=== PATIENT | male | born 1955 | race Caucasian/White ===

== ENCOUNTER 2022-01-17 12:49 | Outpatient (REF) | payer OTHER, SELFPAY ==
[2022-01-17 14:10] LABS: Cholesterol 242 mg/dL; Glucose Fasting 101 mg/dL (60-99); HDL Cholesterol 55 mg/dL; LDL Cholesterol Calculated 166 mg/dl; Triglycerides 108 mg/dL
== END 2022-01-17 12:50 | disposition home or self-care (01) ==
LOC: HO.HMGCLDS 12:49
PROVIDERS: PCP Physician Assistant; Visit Provider Physician Assistant
DX: E78.2 Mixed hyperlipidemia (principal)
CPT/HCPCS: 36415; 80061; 82947

== ENCOUNTER 2022-07-10 09:13 | Outpatient (REF) | payer OTHER, SELFPAY ==
[2022-07-10 12:10] LABS: Cholesterol 193 mg/dL; HDL Cholesterol 63 mg/dL; LDL Cholesterol Calculated 117 mg/dl; Triglycerides 68 mg/dL
== END 2022-07-10 09:14 | disposition home or self-care (01) ==
LOC: HO.HMGCLDS 09:13
PROVIDERS: PCP Physician Assistant; Visit Provider Physician Assistant
DX: E78.5 Hyperlipidemia, unspecified (principal)
CPT/HCPCS: 36415; 80061

== ENCOUNTER 2023-02-12 10:01 | Outpatient (REF) | payer OTHER, SELFPAY ==
[2023-02-12 12:45] LABS: Anion Gap 11 (12-20); Blood Urea Nitrogen 23 mg/dL (9-16); Calcium 9.4 mg/dL (8.4-10.2); Carbon Dioxide 28 mmol/L (22-29); Chloride 106 mmol/L (96-108); Cholesterol 235 mg/dL; Estimated Glomerular Filt Rate > 60; Glucose Random 101 mg/dL (60-115); HDL Cholesterol 56 mg/dL; LDL Cholesterol Calculated 162 mg/dl; Potassium 3.6 mmol/L (3.3-5.1); Sodium 141 mmol/L (135-145); Triglycerides 89 mg/dL
[2023-02-12 13:00] LABS: Prostate Specific Antigen 1.57 ng/mL (<0.05-4.0)
== END 2023-02-12 10:02 | disposition home or self-care (01) ==
LOC: HO.HMGCLDS 10:01
PROVIDERS: PCP Physician Assistant; Visit Provider Physician Assistant
DX: Z00.00 Encounter for general adult medical examination without abnormal findings (principal); Z12.5 Encounter for screening for malignant neoplasm of prostate; Z13.6 Encounter for screening for cardiovascular disorders
CPT/HCPCS: 36415; 80048; 80061; 84153

== ENCOUNTER 2023-07-12 11:00 | Outpatient (RCR) | payer OTHER, SELFPAY | END 2023-12-03 13:44 | disposition home or self-care (01) | LOC: HO.PTCHIC 11:00 | PROVIDERS: PCP Physician Assistant; Visit Provider Physician Assistant | DX: M25.551 Pain in right hip (principal) | CPT/HCPCS: 97110; 97162 ==

== ENCOUNTER 2024-03-11 10:58 | Outpatient (REF) | payer OTHER, SELFPAY ==
[2024-03-11 17:01] LABS: Blood Urea Nitrogen 24 mg/dL (9-16); Estimated Glomerular Filt Rate > 60
== END 2024-03-11 10:59 | disposition home or self-care (01) ==
LOC: HO.HMGCLDS 10:58
PROVIDERS: Visit Provider Otolaryngology
DX: R07.0 Pain in throat (principal); J38.7 Other diseases of larynx
CPT/HCPCS: 36415; 82565; 84520

== ENCOUNTER 2025-06-04 08:33 | Outpatient (REF) | payer OTHER, SELFPAY ==
--- OUTSIDE RECORDS SUMMARY | 2023-12-17 09:00 | XMS_ITS ---
Author Organization [facility] Address [address] [place] [address] Care Team Providers Care Neurosurgery Spine Physician Name Role Phone Ruth Peguero Unavailable [phone] REASON FOR VISIT EKG, labs, right hip replacement surgery by Dr Wili Mendoza 12/25/22 Encounters Encounter Location Date Provider Diagnosis [facility] [address] [address] 12/17/2023 Ruth Peguero Plan Of Treatment No Information Progress Notes * Topher ALLANDOB: (70 yo M)Acc No.[id number]:12/17/2023 Progress Note Patient: Topher NELSON Provider: Citlalli Peguero PA-C :1955 A ge:68 Y S ex:Male Date:12/17/2023 Address:[address] [place], [place] [id number] Subjective: * Chief Complaints: * 1 . EKG, labs, right hip replacement surgery by Dr Wili Mendoza 12/25/22. * Medical History: Objective: * Vitals: Assessment: Plan: * Treatment: * Images: Billing Information: * Visit Code: * Procedure Codes: * Electronic signature of Ruth Peguero PA-C on 06/04/2025 at 08:35 AM EDT Sign off status: Pending * Provider: Citlalli Peguero PA-C Date: 12/17/2023 Generated for Jac morgan/Macario/Severoitting on: 0 06/04/2025 08:35 AM EDT
--- OUTSIDE RECORDS SUMMARY | 2025-06-04 08:35 | XMS_ITS ---
Author Organization [facility] Address [address] [place] [address] Care Team Providers Care Briefcase Sewer Name Role Phone Yanet Keane PA-C Primary Care Provider [phone] Balbir Oneal MD Unavailable [facility] Hermelinda Franco RN Unavailable [phone] Mariann Horne PA-C Unavailable [phone] Aravind Abel MD Unavailable Migel Davis MD Unavailable Active Problems Problem Noted Date Diagnosed Date Oropharyngeal cancer 04/28/2025 Decreased oral intake 06/16/2024 Aortic aneurysm 05/06/2024 Head and neck cancer 04/22/2024 Over weight 04/07/2024 Assessment & Plan (04/07/2024 10:47 AM EDT): Diet, exercise and lifestyle modifications. 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 No recurrence since. Continue follow up as planned. Current Treatment and Therapy Plans CISplatin (40 mg/m??) x 5-7 Weeks + Concurrent Radiation* Plan Start Date: 05/03/2024 Plan Provider:Karthik Adams MD Linked Problems Head and neck cancer (HCC) Treatment Medications CISplatin (PLATINOL) IVPB in 500 mL NS (< 50 mg/ m2) Other Current Plans Hydration WITHOUT Additives Therapy Plan* Plan Start Date:06/17/2024 Plan Provider:Keri Hammond APRN Linked Problems Decreased oral intake Treatment Medications No medications scheduled. Past Treatment and Therapy Plans INFUSION TREATMENT 1 Plan Name Start Date Discontinue Date Treatment Medications Discontinue Reason Plan Provider Hydration WITHOUT Additives Therapy Plan 06/16/2024 05/27/2025 No medications scheduled. Therapy Complete Balbir Oneal MD Radiation Treatments * Course 1 05/04/2024 - 06/22/2024 Treatment Sites Treatment Period Technique Fraction Dose Fra ctions Total Dose A1-2 L BOT [place] 05/04/2024 - 06/22/2024 VMAT 200 / 200 35 / 35 7,000 / 7,000
--- OUTSIDE RECORDS SUMMARY | 2025-06-04 08:36 | XMS_ITS | Patient Health Record ---
Author Organization [facility] Address [address] [place] [address] Care Team Providers Care Foot Press Operator Name Role Phone Yanet Keane Primary Care Provider Felicia Poe [phone] Reason For Referral No Information Medications Medication SIG (Take, Route, Fr equency, Duration) Notes Start Date End Date Status Soma Active Metrogel Active Lorazepam Active Meloxicam 15 MG 1 tablet Orally Once a day; Duration: 30 Active Problems Problem Type SNOMED Code ICD Code Onset Dates Problem Status W/U Status Risk Notes Problem Bursitis (16755317) Bursitis (727.3) Active confirmed Problem Myositis (38601981) Myositis (729.1) Active confirmed Problem Pain in limb (33466039) Pain in Limb (729.5) Active confirmed Problem Plantar fasciitis (537092892) Plantar Fasciitis (728.71) Active confirmed Problem Calcaneal spur (74837773) Calcaneal spur (726.73) Active confirmed Encounters Encounter Location Date Provider [facility] [address] [place] [address] 10/05/2024 Felicia Garcia Plan Of Treatment Pending Test Test Name Order Date X ray : Foot, left 3V 02/16/2015 Insurance Providers Payer Name Payer Address Payer Phone Subscriber Number Group Number Insured Name Patient Relationship to Insured Coverage Start Date Coverage End Date [employer] [address] [place] [id number] [id number] Topher Allan Self - patient is the insured Medical (General) History Medical History History ICD Code Anxiety Arthritis Back,Hip,and Knee pain Broken bones Chicken pox Joint implants/screws Sciatica Surgical History Surgery Date(Month/Year) left knee replacement right knee replacement
--- OUTSIDE RECORDS SUMMARY | 2025-06-04 08:36 | XMS_ITS ---
Author Name [facility] Organization Unknown Results Test Name/Text Value Interpretation Date Range Source Ferritin SerPl-mCnc 207.0 ug/L Normal 02/17/2025 30 - 400 [facility] TSH SerPl DL<=0.005 mIU/L-aCnc 2.95 mIU/L Normal 02/17/2025 0.27 - 4.2 [facility] Sodium SerPl-sCnc 140.0 mmol/L Normal 02/17/2025 136 - 14 5 H[facility] CO2 SerPl-sCnc 26.0 mmol/L Normal 02/17/2025 22 - 33 HH CCT Creat SerPl-mCnc 1.0 mg/dL Normal 02/17/2025 0.5 - 1.3 HH CCT Glucose SerPl-mCnc 72.0 mg/dL Normal 02/17/2025 65 - 99 [facility] Chloride SerPl-sCnc 104.0 mmol/L Normal 02/17/2025 98 - 1 07 H[facility]CT Calcium SerPl-mCnc 9.2 mg/dL Normal 02/17/2025 8.7 - 10.5 H[facility]CT BUN/Creat SerPl 19.0 Ratio Normal 02/17/2025 10 - 25 HH CCT GFR/BSA.pred SerPlBld [id number] 82.0 Normal 02/17/2025 59 - HHCCT Anion Gap Bld-sCnc 10.0 Normal 02/17/2025 7 - 17 H[facility]CT Potassium SerPl-sCnc 4.0 mmol/L Normal 02/17/2025 3.4 - 5 .3 H[facility]CT BUN SerPl-mCnc 19.0 mg/dL Normal 02/17/2025 8 - [address] Bilirub SerPl-mCnc 0.3 mg/dL Normal 02/17/2025 0.2 - 1 HHCCT ALT SerPl-cCnc 18.0 U/L Normal 02/17/2025 10 - 55 [facility] T ALP SerPl-cCnc 54.0 U/L Normal 02/17/2025 45 - 128 [facility] T Globulin Ser Calc-mCnc 2.5 g/dL Normal 02/17/2025 1.5 - 3.9 HHCCT Prot SerPl-mCnc 6.5 g/dL Normal 02/17/2025 6.3 - 8.[address] AST SerPl-cCnc 19.0 U/L Normal 02/17/2025 10 - 55 [facility] T Albumin/Glob SerPl 1.6 Ratio Normal 02/17/2025 1 - 3 H[facility]CT Albumin SerPl-mCnc 4.0 g/dL Normal 02/17/2025 3.4 - 4.8 HHCCT Bilirub Direct SerPl-mCnc 0.1 mg/dL Normal 02/17/2025 0 - 0.2 HHCCT T4 Free SerPl-mCnc 1.06 ng/dL Normal 02/17/2025 0.8 - 1.9 HHCCT Iron Satn MFr SerPl 35.0 % Normal 02/17/2025 20 - 50 H[facility]CT UIBC SerPl-mCnc 161.0 ug/dL Normal 02/17/2025 112 - 346 H HCCT TIBC SerPl-mCnc 247.0 ug/dL Normal 02/17/2025 100 - 400 H HCCT Iron SerPl-mCnc 86.0 ug/dL Normal 02/17/2025 53 - 167 HH CCT Hgb Retic Qn Auto 33.3 pg Normal 02/17/2025 28 - 35 H HCCT Retics/100 RBC NFr Auto 1.4 % Normal 02/17/2025 0.7 - 2 H[facility]CT Reticulocyte production index 1.3 % Normal 02/17/2025 1 - 2 H[facility]CT Retics num Auto 63.6 Thou/uL Normal 02/17/2025 30 - 100 H[facility]CT Immature Reticulocyte Fraction 10.5 % Normal 02/17/2025 2.3 - 15.9 HHCCT Lymphocytes num Bld Auto 0.87 Thou/uL Below low normal 02/17/2025 1.5 - 4.5 HHCCT Hgb Bld-mCnc 13.7 g/dL Normal 02/17/2025 13 - 17.7 HHCCT Eosinophil/leuk NFr Bld Auto 2.7 % Normal 02/17/2025 HHCCT Neutrophils num Bld Auto 2.63 Thou/uL Normal 02/17/2025 2 - 7.5 HHCCT MCH RBC Qn Auto 29.7 pg Normal 02/17/2025 27 - [address] RDW RBC Auto-Rto 14.3 % Normal 02/17/2025 11.5 - 14.5 H[facility]CT Platelet num Bld Auto 254.0 Thou/uL Normal 02/17/2025 150 - 450 H[facility]CT PMV Bld Auto 11.5 fL Normal 02/17/2025 7.5 - 12.5 HHCCT Neutrophils/leuk NFr Bld Auto 64.8 % Normal 02/17/2025 HHCCT RBC num Bld Auto 4.61 Mil/uL Normal 02/17/2025 4.5 - 6.2 HHCCT Monocytes/leuk NFr Bld Auto 9.4 % Normal 02/17/2025 HHCCT Basophils/leuk NFr Bld Auto 1.5 % Normal 02/17/2025 HHCCT Imm Granulocytes/leuk NFr Bld Auto 0.2 % Normal 02/17/2025 HHCCT Basophils num Bld Auto 0.06 Thou/uL Normal 02/17/2025 0 - 0.2 HHCCT Lymphocytes/leuk NFr Bld Auto 21.4 % Normal 02/17/2025 HHCCT Monocytes num Bld Auto 0.38 Thou/uL Normal 02/17/2025 0.2 - 1.5 HHCCT Hct VFr Bld Auto 41.9 % Normal 02/17/2025 39 - 54 HH CCT MCV RBC Auto 91.0 fL Normal 02/17/2025 80 - 100 H[facility]CT Imm Granulocytes num Bld Auto 0.01 Thou/uL Normal 02/17/2025 0 - 0.1 HHCCT Eosinophil num Bld Auto 0.11 Thou/uL Normal 02/17/2025 0 - 0.7 HHCCT WBC num Bld Auto 4.1 Thou/uL Normal 02/17/2025 4 - 11 HHCCT MCHC RBC Auto-mCnc 32.7 g/dL Normal 02/17/2025 30 - 36 HHCCT POC Glucose 96.0 mg/dL Normal 09/14/2024 65 - 99 H[facility]CT Platelet num Bld Auto 203.0 Thou/uL Normal 06/26/2024 150 - 450 HHCCT Lymphocytes num Bld Auto <1.0 Thou/uL Below low normal 06/26/2024 1.5 - 4.5 HHCCT PMV Bld Auto 7.6 fL Normal 06/26/2024 7.5 - 12.5 HHCCT Neutrophils num Bld Auto 2.4 Thou/uL Normal 06/26/2024 2 - 7.5 HHCCT WBC num Bld Auto 2.9 Thou/uL Below low normal 06/26/2024 4 - 11 HHCCT MCH RBC Qn Auto 29.6 pg Normal 06/26/2024 27 - [address] Mixed Mononuclear, Absolute <1.0 Thou/uL Normal 06/26/2024 0.2 - 1.9 HHCCT Neutrophils/leuk NFr Bld Auto 82.4 % Normal 06/26/2024 HHCCT Mixed Mononuclear 12.5 % Normal 06/26/2024 H [facility]CT MCV RBC Auto 89.0 fL Normal 06/26/2024 80 - 100 HHCCT RBC num Bld Auto 3.95 Mil/uL Below low normal 06/26/2024 4.5 - 6.2 HHCCT Hct VFr Bld Auto 35.1 % Below low normal 06/26/2024 39 - 54 HHCCT RDW RBC Auto-Rto 15.9 % Above high normal 06/26/2024 11.5 - 14.5 HHCCT MCHC RBC Auto-mCnc 33.3 g/dL Normal 06/26/2024 30 - 36 HHCCT Lymphocytes/leuk NFr Bld Auto 5.1 % Normal 06/26/2024 HHCCT Hgb Bld-mCnc 11.7 g/dL Below low normal 06/26/2024 13 - 17.7 HHCCT Magnesium SerPl-mCnc 1.8 mg/dL Normal 06/15/2024 1.6 - 2. 7 HHCCT Albumin/Glob SerPl 1.7 Ratio Normal 06/15/2024 1 - 3 HHCCT Bilirub SerPl-mCnc 0.4 mg/dL Normal 06/15/2024 0.2 - 1 HHCCT Albumin SerPl-mCnc 3.9 g/dL Normal 06/15/2024 3.4 - 4.8 HHCCT Chloride SerPl-sCnc 98.0 mmol/L Normal 06/15/2024 98 - 10 7 HHCCT AST SerPl-cCnc 12.0 U/L Normal 06/15/2024 10 - 55 [facility] T CO2 SerPl-sCnc 26.0 mmol/L Normal 06/15/2024 22 - 33 HH CCT BUN/Creat SerPl 25.0 Ratio Normal 06/15/2024 10 - 25 HH CCT GFR/BSA.pred SerPlBld [id number] 74.0 Normal 06/15/2024 59 - HHCCT Calcium SerPl-mCnc 9.3 mg/dL Normal 06/15/2024 8.7 - 10.5 HHCCT Globulin Ser Calc-mCnc 2.3 g/dL Normal 06/15/2024 1.5 - 3.9 HHCCT Glucose SerPl-mCnc 105.0 mg/dL Above high normal 06/15/2024 65 - 99 HHCCT Prot SerPl-mCnc 6.2 g/dL Below low normal 06/15/2024 6.3 - 8.3 HHCCT Sodium SerPl-sCnc 136.0 mmol/L Normal 06/15/2024 136 - 14 5 HHCCT Creat SerPl-mCnc 1.1 mg/dL Normal 06/15/2024 0.5 - 1.3 HH CCT ALT SerPl-cCnc 15.0 U/L Normal 06/15/2024 10 - 55 HH[facility] T Potassium SerPl-sCnc 3.8 mmol/L Normal 06/15/2024 3.4 - 5 .3 HHCCT ALP SerPl-cCnc 54.0 U/L Normal 06/15/2024 45 - 128 [facility] T BUN SerPl-mCnc 28.0 mg/dL Above high normal 06/15/2024 8 - 2 1 H[facility]CT Anion Gap Bld-sCnc 12.0 Normal 06/15/2024 7 - 17 H[facility]CT Lymphocytes/leuk NFr Bld Auto 15.8 % Normal 06/15/2024 HHCCT Neutrophils num Bld Auto 2.5 Thou/uL Normal 06/15/2024 2 - 7.5 HHCCT RBC num Bld Auto 4.27 Mil/uL Below low normal 06/15/2024 4.5 - 6.2 HHCCT Lymphocytes num Bld Auto <1.0 Thou/uL Below low normal 06/15/2024 1.5 - 4.5 HHCCT MCH RBC Qn Auto 29.0 pg Normal 06/15/2024 27 - [address] MCHC RBC Auto-mCnc 32.5 g/dL Normal 06/15/2024 30 - 36 HHCCT Hgb Bld-mCnc 12.4 g/dL Below low normal 06/15/2024 13 - 17.7 HHCCT RDW RBC Auto-Rto 14.3 % Normal 06/15/2024 11.5 - 14.5 HHCCT Mixed Mononuclear 5.1 % Normal 06/15/2024 H [facility]CT Neutrophils/leuk NFr Bld Auto 79.1 % Normal 06/15/2024 HHCCT WBC num Bld Auto 3.2 Thou/uL Below low normal 06/15/2024 4 - 11 HHCCT MCV RBC Auto 89.0 fL Normal 06/15/2024 80 - 100 H[facility]CT PMV Bld Auto 8.6 fL Normal 06/15/2024 7.5 - 12.5 HHCCT Mixed Mononuclear, Absolute <1.0 Thou/uL Normal 06/15/2024 0.2 - 1.9 HHCCT Platelet num Bld Auto 186.0 Thou/uL Normal 06/15/2024 150 - 450 HHCCT Hct VFr Bld Auto 38.1 % Below low normal 06/15/2024 39 - 54 H[facility]CT Platelet num Bld Auto 185.0 Thou/uL Normal 06/08/2024 150 - 450 H[facility]CT Mixed Mononuclear, Absolute <1.0 Thou/uL Normal 06/08/2024 0.2 - 1.9 HHCCT Hct VFr Bld Auto 37.4 % Below low normal 06/08/2024 39 - 54 HHCCT Neutrophils/leuk NFr Bld Auto 74.9 % Normal 06/08/2024 HHCCT MCHC RBC Auto-mCnc 32.1 g/dL Normal 06/08/2024 30 - 36 HHCCT Lymphocytes num Bld Auto <1.0 Thou/uL Below low normal 06/08/2024 1.5 - 4.5 HHCCT RBC num Bld Auto 4.16 Mil/uL Below low normal 06/08/2024 4.5 - 6.2 HHCCT Neutrophils num Bld Auto 2.4 Thou/uL Normal 06/08/2024 2 - 7.5 HHCCT PMV Bld Auto 8.7 fL Normal 06/08/2024 7.5 - 12.5 HHCCT MCH RBC Qn Auto 28.8 pg Normal 06/08/2024 27 - [address] Mixed Mononuclear 8.0 % Normal 06/08/2024 H HCCT MCV RBC Auto 90.0 fL Normal 06/08/2024 80 - 100 HHCCT RDW RBC Auto-Rto 14.0 % Normal 06/08/2024 11.5 - 14.5 HHCCT Lymphocytes/leuk NFr Bld Auto 17.1 % Normal 06/08/2024 HHCCT WBC num Bld Auto 3.2 Thou/uL Below low normal 06/08/2024 4 - 11 HHCCT Hgb Bld-mCnc 12.0 g/dL Below low normal 06/08/2024 13 - 17.7 HHCCT Albumin/Glob SerPl 1.5 Ratio Normal 06/08/2024 1 - 3 HHCCT Sodium SerPl-sCnc 138.0 mmol/L Normal 06/08/2024 136 - 14 5 HHCCT ALP SerPl-cCnc 46.0 U/L Normal 06/08/2024 45 - 128 HH[facility] T ALT SerPl-cCnc 21.0 U/L Normal 06/08/2024 10 - 55 [facility] T BUN SerPl-mCnc 28.0 mg/dL Above high normal 06/08/2024 8 - 2 1 HHCCT Potassium SerPl-sCnc 3.8 mmol/L Normal 06/08/2024 3.4 - 5 .3 HHCCT CO2 SerPl-sCnc 28.0 mmol/L Normal 06/08/2024 22 - 33 HH CCT Bilirub SerPl-mCnc 0.4 mg/dL Normal 06/08/2024 0.2 - 1 HHCCT Albumin SerPl-mCnc 3.7 g/dL Normal 06/08/2024 3.4 - 4.8 HHCCT Anion Gap Bld-sCnc 9.0 Normal 06/08/2024 7 - 17 HHCCT BUN/Creat SerPl 31.0 Ratio Above high normal 06/08/2024 10 - 25 HHCCT AST SerPl-cCnc 14.0 U/L Normal 06/08/2024 10 - 55 HH[facility] T Calcium SerPl-mCnc 9.2 mg/dL Normal 06/08/2024 8.7 - 10.5 HHCCT GFR/BSA.pred SerPlBld [id number] >90.0 Normal 06/08/2024 59 - HHCCT Creat SerPl-mCnc 0.9 mg/dL Normal 06/08/2024 0.5 - 1.3 HH CCT Glucose SerPl-mCnc 81.0 mg/dL Normal 06/08/2024 65 - 99 HHCCT Globulin Ser Calc-mCnc 2.5 g/dL Normal 06/08/2024 1.5 - 3.9 HHCCT Prot SerPl-mCnc 6.2 g/dL Below low normal 06/08/2024 6.3 - 8.3 HHCCT Chloride SerPl-sCnc 101.0 mmol/L Normal 06/08/2024 98 - 1 07 HHCCT Magnesium SerPl-mCnc 2.0 mg/dL Normal 06/08/2024 1.6 - 2. 7 HHCCT LDH SerPl L to P-cCnc 188.0 U/L Normal 06/01/2024 120 - 2 60 HHCCT Magnesium SerPl-mCnc 2.0 mg/dL Normal 06/01/2024 1.6 - 2. 7 HHCCT CO2 SerPl-sCnc 23.0 mmol/L Normal 06/01/2024 22 - 33 HH CCT Sodium SerPl-sCnc 135.0 mmol/L Below low normal 06/01/2024 1 36 - 145 HHCCT BUN SerPl-mCnc 25.0 mg/dL Above high normal 06/01/2024 8 - 2 1 HHCCT Creat SerPl-mCnc 0.9 mg/dL Normal 06/01/2024 0.5 - 1.3 HH CCT Anion Gap Bld-sCnc 10.0 Normal 06/01/2024 7 - 17 HHCCT ALT SerPl-cCnc 16.0 U/L Normal 06/01/2024 10 - 55 HHCC T Bilirub SerPl-mCnc 0.3 mg/dL Normal 06/01/2024 0.2 - 1 HHCCT Potassium SerPl-sCnc 3.9 mmol/L Normal 06/01/2024 3.4 - 5 .3 HHCCT GFR/BSA.pred SerPlBld [id number] >90.0 Normal 06/01/2024 59 - HHCCT AST SerPl-cCnc 14.0 U/L Normal 06/01/2024 10 - 55 HHCC T ALP SerPl-cCnc 49.0 U/L Normal 06/01/2024 45 - 128 HHCC T Globulin Ser Calc-mCnc 2.1 g/dL Normal 06/01/2024 1.5 - 3.9 HHCCT Albumin/Glob SerPl 1.7 Ratio Normal 06/01/2024 1 - 3 HHCCT Calcium SerPl-mCnc 8.8 mg/dL Normal 06/01/2024 8.7 - 10.5 HHCCT BUN/Creat SerPl 28.0 Ratio Above high normal 06/01/2024 10 - 25 HHCCT Glucose SerPl-mCnc 74.0 mg/dL Normal 06/01/2024 65 - 99 HHCCT Chloride SerPl-sCnc 102.0 mmol/L Normal 06/01/2024 98 - 1 07 HHCCT Albumin SerPl-mCnc 3.6 g/dL Normal 06/01/2024 3.4 - 4.8 HHCCT Prot SerPl-mCnc 5.7 g/dL Below low normal 06/01/2024 6.3 - 8.3 HHCCT Hct VFr Bld Auto 38.6 % Below low normal 06/01/2024 39 - 54 HHCCT MCV RBC Auto 89.0 fL Normal 06/01/2024 80 - 100 HHCCT Lymphocytes/leuk NFr Bld Auto 13.9 % Normal 06/01/2024 HHCCT Neutrophils/leuk NFr Bld Auto 73.9 % Normal 06/01/2024 HHCCT Mixed Mononuclear 12.2 % Normal 06/01/2024 H HCCT Platelet num Bld Auto 159.0 Thou/uL Normal 06/01/2024 150 - 450 HHCCT WBC num Bld Auto 4.1 Thou/uL Normal 06/01/2024 4 - 11 HHCCT Lymphocytes num Bld Auto <1.0 Thou/uL Below low normal 06/01/2024 1.5 - 4.5 HHCCT RBC num Bld Auto 4.33 Mil/uL Below low normal 06/01/2024 4.5 - 6.2 HHCCT RDW RBC Auto-Rto 13.5 % Normal 06/01/2024 11.5 - 14.5 HHCCT Mixed Mononuclear, Absolute <1.0 Thou/uL Normal 06/01/2024 0.2 - 1.9 HHCCT MCH RBC Qn Auto 28.9 pg Normal 06/01/2024 27 - [address] PMV Bld Auto 9.6 fL Normal 06/01/2024 7.5 - 12.5 HHCCT Hgb Bld-mCnc 12.5 g/dL Below low normal 06/01/2024 13 - 17.7 HHCCT MCHC RBC Auto-mCnc 32.4 g/dL Normal 06/01/2024 30 - 36 HHCCT Neutrophils num Bld Auto 3.0 Thou/uL Normal 06/01/2024 2 - 7.5 HHCCT Calcium SerPl-mCnc 9.5 mg/dL Normal 05/25/2024 8.7 - 10.5 HHCCT Creat SerPl-mCnc 0.9 mg/dL Normal 05/25/2024 0.5 - 1.3 HH CCT ALT SerPl-cCnc 18.0 U/L Normal 05/25/2024 10 - 55 HHCC T Chloride SerPl-sCnc 103.0 mmol/L Normal 05/25/2024 98 - 1 07 HHCCT ALP SerPl-cCnc 57.0 U/L Normal 05/25/2024 45 - 128 HHCC T Bilirub SerPl-mCnc 0.3 mg/dL Normal 05/25/2024 0.2 - 1 HHCCT CO2 SerPl-sCnc 24.0 mmol/L Normal 05/25/2024 22 - 33 HH CCT Sodium SerPl-sCnc 140.0 mmol/L Normal 05/25/2024 136 - 14 5 HHCCT GFR/BSA.pred SerPlBld [id number] >90.0 Normal 05/25/2024 59 - HHCCT Glucose SerPl-mCnc 111.0 mg/dL Above high normal 05/25/2024 65 - 99 HHCCT BUN/Creat SerPl 36.0 Ratio Above high normal 05/25/2024 10 - 25 HHCCT Albumin SerPl-mCnc 3.9 g/dL Normal 05/25/2024 3.4 - 4.8 HHCCT Albumin/Glob SerPl 1.7 Ratio Normal 05/25/2024 1 - 3 HHCCT Potassium SerPl-sCnc 4.0 mmol/L Normal 05/25/2024 3.4 - 5 .3 HHCCT AST SerPl-cCnc 16.0 U/L Normal 05/25/2024 10 - 55 HHCC T Globulin Ser Calc-mCnc 2.3 g/dL Normal 05/25/2024 1.5 - 3.9 HHCCT Anion Gap Bld-sCnc 13.0 Normal 05/25/2024 7 - 17 HHCCT Prot SerPl-mCnc 6.2 g/dL Below low normal 05/25/2024 6.3 - 8.3 HHCCT BUN SerPl-mCnc 32.0 mg/dL Above high normal 05/25/2024 8 - 2 1 HHCCT Magnesium SerPl-mCnc 2.0 mg/dL Normal 05/25/2024 1.6 - 2. 7 HHCCT Mixed Mononuclear 8.9 % Normal 05/25/2024 H HCCT Lymphocytes num Bld Auto <1.0 Thou/uL Below low normal 05/25/2024 1.5 - 4.5 HHCCT WBC num Bld Auto 4.7 Thou/uL Normal 05/25/2024 4 - 11 HHCCT RBC num Bld Auto 4.48 Mil/uL Below low normal 05/25/2024 4.5 - 6.2 HHCCT Neutrophils/leuk NFr Bld Auto 72.2 % Normal 05/25/2024 HHCCT MCHC RBC Auto-mCnc 31.8 g/dL Normal 05/25/2024 30 - 36 HHCCT Neutrophils num Bld Auto 3.4 Thou/uL Normal 05/25/2024 2 - 7.5 HHCCT MCH RBC Qn Auto 28.3 pg Normal 05/25/2024 27 - [address] Platelet num Bld Auto 257.0 Thou/uL Normal 05/25/2024 150 - 450 HHCCT Lymphocytes/leuk NFr Bld Auto 18.9 % Normal 05/25/2024 HHCCT Mixed Mononuclear, Absolute <1.0 Thou/uL Normal 05/25/2024 0.2 - 1.9 HHCCT Hgb Bld-mCnc 12.7 g/dL Below low normal 05/25/2024 13 - 17.7 HHCCT RDW RBC Auto-Rto 13.0 % Normal 05/25/2024 11.5 - 14.5 HHCCT Hct VFr Bld Auto 40.0 % Normal 05/25/2024 39 - 54 HH CCT PMV Bld Auto 9.4 fL Normal 05/25/2024 7.5 - 12.5 HHCCT MCV RBC Auto 89.0 fL Normal 05/25/2024 80 - 100 HHCCT LDH SerPl L to P-cCnc 186.0 U/L Normal 05/18/2024 120 - 2 60 HHCCT Magnesium SerPl-mCnc 2.2 mg/dL Normal 05/18/2024 1.6 - 2. 7 HHCCT CO2 SerPl-sCnc 27.0 mmol/L Normal 05/18/2024 22 - 33 HH CCT Creat SerPl-mCnc 1.1 mg/dL Normal 05/18/2024 0.5 - 1.3 HH CCT Potassium SerPl-sCnc 4.2 mmol/L Normal 05/18/2024 3.4 - 5 .3 HHCCT Globulin Ser Calc-mCnc 2.1 g/dL Normal 05/18/2024 1.5 - 3.9 HHCCT Sodium SerPl-sCnc 137.0 mmol/L Normal 05/18/2024 136 - 14 5 HHCCT GFR/BSA.pred SerPlBld [id number] 74.0 Normal 05/18/2024 59 - HHCCT BUN SerPl-mCnc 23.0 mg/dL Above high normal 05/18/2024 8 - 2 1 HHCCT Albumin SerPl-mCnc 3.8 g/dL Normal 05/18/2024 3.4 - 4.8 HHCCT Calcium SerPl-mCnc 9.2 mg/dL Normal 05/18/2024 8.7 - 10.5 HHCCT ALT SerPl-cCnc 16.0 U/L Normal 05/18/2024 10 - 55 HHCC T Glucose SerPl-mCnc 104.0 mg/dL Above high normal 05/18/2024 65 - 99 HHCCT ALP SerPl-cCnc 60.0 U/L Normal 05/18/2024 45 - 128 HHCC T Bilirub SerPl-mCnc 0.4 mg/dL Normal 05/18/2024 0.2 - 1 HHCCT Anion Gap Bld-sCnc 10.0 Normal 05/18/2024 7 - 17 HHCCT Albumin/Glob SerPl 1.8 Ratio Normal 05/18/2024 1 - 3 HHCCT Prot SerPl-mCnc 5.9 g/dL Below low normal 05/18/2024 6.3 - 8.3 HHCCT Chloride SerPl-sCnc 100.0 mmol/L Normal 05/18/2024 98 - 1 07 HHCCT BUN/Creat SerPl 21.0 Ratio Normal 05/18/2024 10 - 25 HH CCT AST SerPl-cCnc 17.0 U/L Normal 05/18/2024 10 - 55 HHCC T Mixed Mononuclear, Absolute <1.0 Thou/uL Normal 05/18/2024 0.2 - 1.9 HHCCT Lymphocytes num Bld Auto <1.0 Thou/uL Below low normal 05/18/2024 1.5 - 4.5 HHCCT Neutrophils num Bld Auto 6.1 Thou/uL Normal 05/18/2024 2 - 7.5 HHCCT MCH RBC Qn Auto 28.9 pg Normal 05/18/2024 27 - [address] PMV Bld Auto 10.3 fL Normal 05/18/2024 7.5 - 12.5 HHCCT Hct VFr Bld Auto 40.9 % Normal 05/18/2024 39 - 54 HH CCT RBC num Bld Auto 4.53 Mil/uL Normal 05/18/2024 4.5 - 6.2 HHCCT Platelet num Bld Auto 302.0 Thou/uL Normal 05/18/2024 150 - 450 HHCCT Neutrophils/leuk NFr Bld Auto 81.7 % Normal 05/18/2024 HHCCT MCHC RBC Auto-mCnc 32.0 g/dL Normal 05/18/2024 30 - 36 HHCCT Hgb Bld-mCnc 13.1 g/dL Normal 05/18/2024 13 - 17.7 HHCCT Mixed Mononuclear 8.6 % Normal 05/18/2024 H HCCT RDW RBC Auto-Rto 12.9 % Normal 05/18/2024 11.5 - 14.5 HHCCT MCV RBC Auto 90.0 fL Normal 05/18/2024 80 - 100 HHCCT WBC num Bld Auto 7.4 Thou/uL Normal 05/18/2024 4 - 11 HHCCT Lymphocytes/leuk NFr Bld Auto 9.7 % Normal 05/18/2024 HHCCT Bilirub SerPl-mCnc <0.2 mg/dL Below low normal 05/11/2024 0. 2 - 1 HHCCT Prot SerPl-mCnc 5.8 g/dL Below low normal 05/11/2024 6.3 - 8.3 HHCCT Chloride SerPl-sCnc 104.0 mmol/L Normal 05/11/2024 98 - 1 07 HHCCT BUN SerPl-mCnc 31.0 mg/dL Above high normal 05/11/2024 8 - 2 1 HHCCT Creat SerPl-mCnc 1.1 mg/dL Normal 05/11/2024 0.5 - 1.3 HH CCT AST SerPl-cCnc 18.0 U/L Normal 05/11/2024 10 - 55 HHCC T GFR/BSA.pred SerPlBld [id number] 74.0 Normal 05/11/2024 59 - HHCCT ALT SerPl-cCnc 25.0 U/L Normal 05/11/2024 10 - 55 HHCC T CO2 SerPl-sCnc 24.0 mmol/L Normal 05/11/2024 22 - 33 HH CCT Glucose SerPl-mCnc 77.0 mg/dL Normal 05/11/2024 65 - 99 HHCCT Calcium SerPl-mCnc 8.8 mg/dL Normal 05/11/2024 8.7 - 10.5 HHCCT Globulin Ser Calc-mCnc 2.2 g/dL Normal 05/11/2024 1.5 - 3.9 HHCCT Sodium SerPl-sCnc 140.0 mmol/L Normal 05/11/2024 136 - 14 5 HHCCT ALP SerPl-cCnc 53.0 U/L Normal 05/11/2024 45 - 128 HHCC T Potassium SerPl-sCnc 4.4 mmol/L Normal 05/11/2024 3.4 - 5 .3 HHCCT Anion Gap Bld-sCnc 12.0 Normal 05/11/2024 7 - 17 HHCCT BUN/Creat SerPl 28.0 Ratio Above high normal 05/11/2024 10 - 25 HHCCT Albumin SerPl-mCnc 3.6 g/dL Normal 05/11/2024 3.4 - 4.8 HHCCT Albumin/Glob SerPl 1.6 Ratio Normal 05/11/2024 1 - 3 HHCCT Magnesium SerPl-mCnc 2.0 mg/dL Normal 05/11/2024 1.6 - 2. 7 HHCCT Lymphocytes num Bld Auto 1.8 Thou/uL Normal 05/11/2024 1.5 - 4.5 HHCCT Mixed Mononuclear, Absolute <1.0 Thou/uL Normal 05/11/2024 0.2 - 1.9 HHCCT RDW RBC Auto-Rto 13.0 % Normal 05/11/2024 11.5 - 14.5 HHCCT PMV Bld Auto 9.7 fL Normal 05/11/2024 7.5 - 12.5 HHCCT WBC num Bld Auto 6.5 Thou/uL Normal 05/11/2024 4 - 11 HHCCT MCHC RBC Auto-mCnc 31.8 g/dL Normal 05/11/2024 30 - 36 HHCCT Platelet num Bld Auto 351.0 Thou/uL Normal 05/11/2024 150 - 450 HHCCT Lymphocytes/leuk NFr Bld Auto 27.6 % Normal 05/11/2024 HHCCT Neutrophils/leuk NFr Bld Auto 63.7 % Normal 05/11/2024 HHCCT RBC num Bld Auto 4.66 Mil/uL Normal 05/11/2024 4.5 - 6.2 HHCCT Mixed Mononuclear 8.7 % Normal 05/11/2024 H HCCT MCH RBC Qn Auto 28.3 pg Normal 05/11/2024 27 - [address] Hgb Bld-mCnc 13.2 g/dL Normal 05/11/2024 13 - 17.7 HHCCT Neutrophils num Bld Auto 4.1 Thou/uL Normal 05/11/2024 2 - 7.5 HHCCT MCV RBC Auto 89.0 fL Normal 05/11/2024 80 - 100 HHCCT Hct VFr Bld Auto 41.5 % Normal 05/11/2024 39 - 54 HH CCT Chloride SerPl-sCnc 103.0 mmol/L Normal 05/04/2024 98 - 1 07 HHCCT Albumin/Glob SerPl 1.6 Ratio Normal 05/04/2024 1 - 3 HHCCT Globulin Ser Calc-mCnc 2.4 g/dL Normal 05/04/2024 1.5 - 3.9 HHCCT BUN SerPl-mCnc 30.0 mg/dL Above high normal 05/04/2024 8 - 2 1 HHCCT Bilirub SerPl-mCnc 0.2 mg/dL Normal 05/04/2024 0.2 - 1 HHCCT BUN/Creat SerPl 38.0 Ratio Above high normal 05/04/2024 10 - 25 HHCCT Albumin SerPl-mCnc 3.8 g/dL Normal 05/04/2024 3.4 - 4.8 HHCCT GFR/BSA.pred SerPlBld [id number] >90.0 Normal 05/04/2024 59 - HHCCT Creat SerPl-mCnc 0.8 mg/dL Normal 05/04/2024 0.5 - 1.3 HH CCT Calcium SerPl-mCnc 9.4 mg/dL Normal 05/04/2024 8.7 - 10.5 HHCCT AST SerPl-cCnc 18.0 U/L Normal 05/04/2024 10 - 55 HHCC T Sodium SerPl-sCnc 140.0 mmol/L Normal 05/04/2024 136 - 14 5 HHCCT Prot SerPl-mCnc 6.2 g/dL Below low normal 05/04/2024 6.3 - 8.3 HHCCT ALT SerPl-cCnc 18.0 U/L Normal 05/04/2024 10 - 55 HHCC T ALP SerPl-cCnc 57.0 U/L Normal 05/04/2024 45 - 128 HHCC T Glucose SerPl-mCnc 93.0 mg/dL Normal 05/04/2024 65 - 99 HHCCT Anion Gap Bld-sCnc 10.0 Normal 05/04/2024 7 - 17 HHCCT CO2 SerPl-sCnc 27.0 mmol/L Normal 05/04/2024 22 - 33 HH CCT Potassium SerPl-sCnc 3.9 mmol/L Normal 05/04/2024 3.4 - 5 .3 HHCCT Magnesium SerPl-mCnc 2.0 mg/dL Normal 05/04/2024 1.6 - 2. 7 HHCCT MCH RBC Qn Auto 29.1 pg Normal 05/04/2024 27 - [address] Lymphocytes num Bld Auto 2.5 Thou/uL Normal 05/04/2024 1.5 - 4.5 HHCCT RBC num Bld Auto 4.71 Mil/uL Normal 05/04/2024 4.5 - 6.2 HHCCT MCHC RBC Auto-mCnc 32.4 g/dL Normal 05/04/2024 30 - 36 HHCCT Hct VFr Bld Auto 42.3 % Normal 05/04/2024 39 - 54 HH CCT Neutrophils num Bld Auto 5.3 Thou/uL Normal 05/04/2024 2 - 7.5 HHCCT RDW RBC Auto-Rto 13.3 % Normal 05/04/2024 11.5 - 14.5 HHCCT Neutrophils/leuk NFr Bld Auto 63.6 % Normal 05/04/2024 HHCCT Mixed Mononuclear 6.7 % Normal 05/04/2024 H HCCT Hgb Bld-mCnc 13.7 g/dL Normal 05/04/2024 13 - 17.7 HHCCT WBC num Bld Auto 8.4 Thou/uL Normal 05/04/2024 4 - 11 HHCCT MCV RBC Auto 90.0 fL Normal 05/04/2024 80 - 100 HHCCT Platelet num Bld Auto 345.0 Thou/uL Normal 05/04/2024 150 - 450 HHCCT Mixed Mononuclear, Absolute <1.0 Thou/uL Normal 05/04/2024 0.2 - 1.9 HHCCT Lymphocytes/leuk NFr Bld Auto 29.7 % Normal 05/04/2024 HHCCT PMV Bld Auto 9.7 fL Normal 05/04/2024 7.5 - 12.5 HHCCT POC Glucose 96.0 mg/dL Normal 04/27/2024 65 - 99 HHCCT Creat SerPl-mCnc 0.8 mg/dL Normal 04/07/2024 0.5 - 1.3 HH CCT Potassium SerPl-sCnc 3.9 mmol/L Normal 04/07/2024 3.4 - 5 .3 HHCCT Chloride SerPl-sCnc 101.0 mmol/L Normal 04/07/2024 98 - 1 07 HHCCT CO2 SerPl-sCnc 27.0 mmol/L Normal 04/07/2024 22 - 33 HH CCT GFR/BSA.pred SerPlBld [id number] >90.0 Normal 04/07/2024 59 - HHCCT BUN SerPl-mCnc 22.0 mg/dL Above high normal 04/07/2024 8 - 2 1 HHCCT Calcium SerPl-mCnc 9.3 mg/dL Normal 04/07/2024 8.7 - 10.5 HHCCT Glucose SerPl-mCnc 94.0 mg/dL Normal 04/07/2024 65 - 99 HHCCT BUN/Creat SerPl 28.0 Ratio Above high normal 04/07/2024 10 - 25 HHCCT Anion Gap Bld-sCnc 10.0 Normal 04/07/2024 7 - 17 HHCCT Sodium SerPl-sCnc 138.0 mmol/L Normal 04/07/2024 136 - 14 5 HHCCT Hgb Bld-mCnc 14.7 g/dL Normal 04/07/2024 13 - 17.7 HHCCT Monocytes num Bld Auto 0.36 Thou/uL Normal 04/07/2024 0.2 - 1.5 HHCCT Basophils num Bld Auto 0.05 Thou/uL Normal 04/07/2024 0 - 0.2 HHCCT Lymphocytes num Bld Auto 1.64 Thou/uL Normal 04/07/2024 1.5 - 4.5 HHCCT Lymphocytes/leuk NFr Bld Auto 36.9 % Normal 04/07/2024 HHCCT Eosinophil/leuk NFr Bld Auto 2.0 % Normal 04/07/2024 HHCCT Neutrophils num Bld Auto 2.29 Thou/uL Normal 04/07/2024 2 - 7.5 HHCCT WBC num Bld Auto 4.4 Thou/uL Normal 04/07/2024 4 - 11 HHCCT Basophils/leuk NFr Bld Auto 1.1 % Normal 04/07/2024 HHCCT Eosinophil num Bld Auto 0.09 Thou/uL Normal 04/07/2024 0 - 0.7 HHCCT RBC num Bld Auto 5.06 Mil/uL Normal 04/07/2024 4.5 - 6.2 HHCCT Imm Granulocytes/leuk NFr Bld Auto 0.2 % Normal 04/07/2024 HHCCT Imm Granulocytes num Bld Auto 0.01 Thou/uL Normal 04/07/2024 0 - 0.1 HHCCT MCV RBC Auto 90.0 fL Normal 04/07/2024 80 - 100 HHCCT PMV Bld Auto 11.1 fL Normal 04/07/2024 7.5 - 12.5 HHCCT MCH RBC Qn Auto 29.1 pg Normal 04/07/2024 27 - [address] RDW RBC Auto-Rto 14.1 % Normal 04/07/2024 11.5 - 14.5 HHCCT Platelet num Bld Auto 289.0 Thou/uL Normal 04/07/2024 150 - 450 HHCCT MCHC RBC Auto-mCnc 32.5 g/dL Normal 04/07/2024 30 - 36 HHCCT Hct VFr Bld Auto 45.3 % Normal 04/07/2024 39 - 54 HH CCT Monocytes/leuk NFr Bld Auto 8.1 % Normal 04/07/2024 HHCCT Neutrophils/leuk NFr Bld Auto 51.7 % Normal 04/07/2024 HHCCT History of Medication Use Medication Directions Dispensed Refills Start Date End Date Stat us Acetylcarn-Alpha Lipoic Acid 400-200 MG Cap Take 400 mg by mouth 2 times a day. 02/16/2025 active Gabapentin 300mg Capsule 10/29/2024 active Metronidazole 1% Topical Gel 10/29/2024 active dexAMETHasone (DECADRON) 4 MG tablet Take 1 tablet (4 mg total) by mouth 2 (two) times a day with meals. 05/29/2024 4 active barium sulfate (E-Z-DISK) tablet 700 mg 700 mg, Oral, Once in imaging, contrast, Starting on Sat05/06/24 at 0852, For 1 dose, Radiology Appointment 05/06/2024 4 completed barium sulfate (VARIBAR HONEY,VARIBAR NECTAR,TAGITOL V) 40 % 5 mL 5 mL, Oral, Once in imaging, contrast, Starting on Sat05/06/24 at 0847, For 1 dose, Radiology Appointment 05/06/2024 4 completed aprepitant (CINVANTI) IVP syringe 130 mg 18 mL 130 mg, Intravenous, at 540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
--- OUTSIDE RECORDS SUMMARY | 2025-06-04 08:36 | XMS_ITS | Data Portability ---
Author Organization [facility], , [facility] Address [address] [place] [address] Care Team Providers Care Lab Manager Name Role Phone SATISH NEWMAN Sports Medicine [facility] Pearl Glue Drier JOE LAUREANO Primary Care Provider [facility] D[facility] OTHER Assessment No assessment recorded. Plan of Treatment Reminders Order Date Submit Date Provider Last Modified By Organization Details Last Modified Time Details Appointments [facility] 2024 05:00P M Ainsley Seth Not available Not available Not available Medica l Manage ment 15 2025 04:00P Hodan LAUREANO NP Not available Not available Not available Lab PSA, serum or plasma 2024 025 [facility], [address] [place] [address] [place], [address], 04/19/2025 13:20:37 fecal occult blood, immuno assay, stool 2024 [facility]25 [email or web address] [place], [address] [place], [address], 04/19/2025 13:02:29 lipid panel, serum 2024 025 [facility], [address] [place] [address] [place], [address], 04/19/2025 13:20:37 CMP, serum or plasma 2024 025 [facility], [address] [place] [address] [place], [address], 04/19/2025 13:20:37 HbA1c (hemog lobin A1c), blood 2024 025 [facility], [address] [place] [address] [place], [address], 04/19/2025 13:20:37 drug screen , urine - urine - Soma - last dose: last dose time: 1:45pm 2023 024 [facility], [address] [place] [address], [id number], 09/29/2024 10:34:03 drug screen , urine - Date and Time of Last Dose: 2023 024 [facility], [address] [place] [address], [id number], 04/16/2024 12:48:34 fecal occult blood, immuno assay, stool 2023 024 [email or web address] [address] [place] [address], [id number], 04/09/2025 09:26:32 lipid panel, serum 2023 024 [facility], [address] [place] [address], [id number], 12/04/2023 16:12:54 HbA1c (hemog lobin A1c), blood 2023 024 [facility], [address] [place] [address], [address], 12/04/2023 16:03:58 CBC 2023 024 [facility], [address] [place] [address], [address], 12/04/2023 15:42:01 PT/INR 2023 024 [facility], [address] [place], [address], 12/04/2023 15:55:15 CMP, serum or plasma 2023 024 [facility], [address] [place], [address], 12/04/2023 16:12:53 Referral behavi oral health referr al 2024 025 [email or web address] Marshy [facility], [address] [place], [address], 04/27/2025 09:48:57 genera l delioo n referr al 2024 025 peter [facility], [address] , [place], [address], 04/21/2025 09:25:06 otolar yngolo gist referr al 2023 024 [email or web address] [facility], [address] [place], [address], 01/31/2024 12:04:32 Procedures None record ed. Surgeries None record ed. Imaging None record ed. Medication Orders cariso prodol 350 mg tablet 2023 024 [facility]-[id number] [id number], [address] [place], [address], 04/15/2025 19:31:47 hydroc ortiso ne-pan tic acid 1 %-2 % ear drops 2023 024 [email or web address] [id number], [address] [place], [address], 04/10/2024 15:12:41 Patient TargetsNo targets recorded. Patient Instructions Encounter Date Encounter Id Patient Instructions Last Modified By Organization Details Last Modified Time 04/10/2024 [id number] My Health To Do List Specific Analgesia Plan: Continue present regimen Specific Goals for next visit increase exerciseThe patient is currently at their goal of safe, stable use of narcotic pain medication to improve their functioning in life. Since the last visit there has been no activity of concern: Patient today is at low risk for abuse of meds. Monitoring will include repeat UDS. Patients current goals of more activity were discussed with patient, unlikelihood of 100% reduction in pain made clear. Patient has read narcotics contract and understands the properties of narcotic medication. [email or web address] Not available 04/10/2024 10:21:18 09/28/2024 [id number] My Health To Do List Specific Analgesia Plan: Continue present regimen Specific Goals for next visit increase exerciseThe patient is currently at their goal of safe, stable use of narcotic pain medication to improve their functioning in life. Since the last visit there has been no activity of concern: Patient today is at low risk for abuse of meds. Monitoring will include repeat UDS. Patients current goals of more activity were discussed with patient, unlikelihood of 100% reduction in pain made clear. Patient has read narcotics contract and understands the properties of narcotic medication. [email or web address] Not available 09/10/2024 16:59:01 Reason for Referral Pearl Glue Drier Referral fo r Otalgia of left ear Referring Physician: Ayaz Hussein, Family Medicine, Encounter Date: 01/28/2024 General Surgeon Referral for Lipoma of back Referring Physician: Joe Laureano [facility] Medicine, Encounter Date: 04/16/2025 Behavioral Health Referral f or Poor concentration ? ADHD Referring Physician: Joe Laureano [facility], Encounter Date: 04/16/2025 Results Created Date Observation Date Name Description Value Unit Range Abnormal Flag Note LastModifiedBy Organization Detail LastModifiedTime 11/09/2011/09/2023 URINA LYSIS W/REF TORI URINE CULTU RE color Yellow yellow Not Available [facility] (Out[facility] [address] [place], [address], 11/09/2023 13:40:22 11/09/2011/09/2023 URINA LYSIS W/REF TORI URINE CULTU RE clarity Clear Not Available [facility] ([facility]) [address] [place], [address], 11/09/2023 13:40:22 11/09/20 23 11/09/2023 URINA LYSIS W/REF TORI URINE CULTU RE glucose Negati ve negati ve Not Available [facility] ([facility]) [address] [place], [address], 11/09/2023 13:40:22 11/09/20 23 11/09/2023 URINA LYSIS W/REF TORI URINE CULTU RE bili Negati ve negati ve Not Available [facility] ([facility]) [address] [place], [address], 11/09/2023 13:40:22 11/09/20 23 11/09/2023 URINA LYSIS W/REF TORI URINE CULTU RE ketones Negati ve negati ve Not Available [facility] ([facility]) [address] [place], [address], 11/09/2023 13:40:22 11/09/20 23 11/09/2023 URINA LYSIS W/REF TORI URINE CULTU RE specific gravity 1.020 1.005- 1.030 Not Available [facility] ([facility]) [address] [place], [address], 11/09/2023 13:40:22 11/09/20 23 11/09/2023 URINA LYSIS W/REF TORI URINE CULTU RE blood Negati ve negati ve Not Available [facility] ([facility]) [address] [place], [address], 11/09/2023 13:40:22 11/09/20 23 11/09/2023 URINA LYSIS W/REF TORI URINE CULTU RE pH 6.5 5.0-8. 0 Not Available [facility] [address] [place], [address], 11/09/2023 13:40:22 11/09/20 23 11/09/2023 URINA LYSIS W/REF TORI URINE CULTU RE protein Negati ve negati ve Not Available [facility]) [address] [place] [address], [address], 11/09/2023 13:40:22 11/09/20 23 11/09/2023 URINA LYSIS W/REF TORI URINE CULTU RE nitrite Negati ve negati ve Not Available [facility] [address] [place], [address], 11/09/2023 13:40:22 11/09/20 23 11/09/2023 URINA LYSIS W/REF TORI URINE CULTU RE leukocyte esterase, ur Negati ve negati ve Not Available [facility] [address] [place], [address], 11/09/2023 13:40:22 11/09/20 23 11/09/2023 CBC AND DIFFE RENTI AL WBC 8.12 K/uL 4.00-1 1.00 Not Available [facility] [address] [place] [address], [address], 11/09/2023 13:49:36 11/09/20 23 11/09/2023 CBC AND DIFFE RENTI AL RBC 5.14 M/uL 3.90-5 .69 Not Available [facility]) [address] [place] [address], [address], 11/09/2023 13:49:36 11/09/20 23 11/09/2023 CBC AND DIFFE RENTI AL HGB 15.0 g/dL 12.4-1 7.3 Not Available [facility]) [address] [place] [address], [address], 11/09/2023 13:49:36 11/09/20 23 11/09/2023 CBC AND DIFFE RENTI AL HCT 44.9 % 37.0-5 1.0 Not Available [facility]) [address] [place], [address], 11/09/2023 13:49:36 11/09/20 23 11/09/2023 CBC AND DIFFE RENTI AL plt 279 K/uL 140-43 0 Not Available [facility] ([facility]) [address] [place], [address], 11/09/2023 13:49:36 11/09/20 23 11/09/2023 CBC AND DIFFE RENTI AL MCV 87.4 fL 78.0-9 7.0 Not Available [facility] [address] [place], [address], 11/09/2023 13:49:36 11/09/20 23 11/09/2023 CBC AND DIFFE RENTI AL MCH 29.2 pg 25.0-3 3.0 Not Available [facility] [address] [place], [address], 11/09/2023 13:49:36 11/09/20 23 11/09/2023 CBC AND DIFFE RENTI AL MCHC 33.4 g/dL 32.0-3 6.0 Not Available [facility] [address] [place], [address], 11/09/2023 13:49:36 11/09/20 23 11/09/2023 CBC AND DIFFE RENTI AL RDW 13.2 % 11.0-1 5.0 Not Available [facility] [address] [place], [address], 11/09/2023 13:49:36 11/09/20 23 11/09/2023 CBC AND DIFFE RENTI AL MPV 10.1 fL 8.4-12 .8 Not Available [facility] [address] [place], [address], 11/09/2023 13:49:36 11/09/20 23 11/09/2023 CBC AND DIFFE RENTI AL diff method Auto Not Available [facility] [address] [place], [address], 11/09/2023 13:49:36 11/09/20 23 11/09/2023 CBC AND DIFFE RENTI AL neuts 75.3 % 43.0-7 5.0 high Not Available [facility] ([facility] [address] [place], [address], 11/09/2023 13:49:36 11/09/20 23 11/09/2023 CBC AND DIFFE RENTI AL lymphs 17.6 % 18.2-4 7.4 low Not Available [facility]) [address] [place] [address], [address], 11/09/2023 13:49:36 11/09/20 23 11/09/2023 CBC AND DIFFE RENTI AL monos 5.5 % 4.00-1 1.00 Not Available [facility]) [address] [place] [address], [address], 11/09/2023 13:49:36 11/09/20 23 11/09/2023 CBC AND DIFFE RENTI AL eos 0.5 % 0.0-8. 0 Not Available [facility] ([facility]) [address] [place] [address], [address], 11/09/2023 13:49:36 11/09/20 23 11/09/2023 CBC AND DIFFE RENTI AL basos 0.9 % 0.0-2. 0 Not Available [facility]) [address] [place] [address], [address], 11/09/2023 13:49:36 11/09/20 23 11/09/2023 CBC AND DIFFE RENTI AL granulocytes , immature (%) 0.2 % 0.0-0. 9 Not Available [facility] [address] [place], [address], 11/09/2023 13:49:36 11/09/20 23 11/09/2023 CBC AND DIFFE RENTI AL absolute neuts 6.11 K/uL 1.80-7 .70 Not Available [facility]) [address] [place] [address], [address], 11/09/2023 13:49:36 11/09/20 23 11/09/2023 CBC AND DIFFE RENTI AL absolute lymphs 1.43 K/uL 1.00-3 .10 Not Available [facility]) [address] [place] [address], [address], 11/09/2023 13:49:36 11/09/20 23 11/09/2023 CBC AND DIFFE RENTI AL absolute monos 0.45 K/uL 0.20-0 .80 Not Available [facility] ([facility]) [address] [place], [address], 11/09/2023 13:49:36 11/09/20 23 11/09/2023 CBC AND DIFFE RENTI AL absolute eos 0.04 K/uL 0.00-0 .80 Not Available [facility]) [address] [place] [address], [address], 11/09/2023 13:49:36 11/09/20 23 11/09/2023 CBC AND DIFFE RENTI AL absolute basos 0.07 K/uL 0.00-0 .09 Not Available [facility]) [address] [place] [address], [address], 11/09/2023 13:49:36 11/09/20 23 11/09/2023 CBC AND DIFFE RENTI AL granulocytes , immature 0.02 K/uL 0.00-0 .05 Not Available [facility] [address] [place], [address], 11/09/2023 13:49:36 11/09/20 23 11/09/2023 BASIC METAB OLIC PANEL sodium 140 mmol/ L 133-14 6 Not Available [facility] [address] [place], [address], 11/09/2023 14:11:36 11/09/20 23 11/09/2023 BASIC METAB OLIC PANEL chloride 102 mmol/ L 96-108 Not Available [facility]) [address] [place], [address], 11/09/2023 14:11:36 11/09/20 23 11/09/2023 BASIC METAB OLIC PANEL potassium 4.0 mmol/ L 3.3-5. 1 Not Available [facility] [address] [place], [address], 11/09/2023 14:11:36 11/09/20 23 11/09/2023 BASIC METAB OLIC PANEL CO2 26 mmol/ L 21-35 Not Available [facility] [address] [place], [address], 11/09/2023 14:11:36 11/09/20 23 11/09/2023 BASIC METAB OLIC PANEL BUN 28 mg/dL 6-19 high Not Available [facility] ([facility]) [address] [place], [address], 11/09/2023 14:11:36 11/09/20 23 11/09/2023 BASIC METAB OLIC PANEL creatinine 0.90 mg/dL 0.5-1. 5 Not Available [facility] ([facility] [address] [place], [address], 11/09/2023 14:11:36 11/09/20 23 11/09/2023 BASIC METAB OLIC PANEL glucose 62 mg/dL 70-99 low Not Available [facility] ([facility]) [address] [place], [address], 11/09/2023 14:11:36 11/09/20 23 11/09/2023 BASIC METAB OLIC PANEL calcium 9.4 mg/dL 8.4-10 .3 Not Available [facility] ([facility]) [address] [place], [address], 11/09/2023 14:11:36 11/09/20 23 11/09/2023 BASIC METAB OLIC PANEL eGFR 94 mL/mi n/1.7 3m2 >59 Estim ated glome rular filtr ation rate calcu lated using the CKD-E PI refit equat ion. Not Available [facility] ([facility] [address] [place], [address], 11/09/2023 14:11:36 11/09/20 23 11/09/2023 BASIC METAB OLIC PANEL anion gap 16 mmol/ L 10-20 Not Available [facility] [address] [place], [address], 11/09/2023 14:11:36 11/09/20 23 11/09/2023 LIPAS E lipase 30 U/L 16-63 Not Available [facility] [address] [place], [address], 11/09/2023 14:11:37 11/09/20 23 11/09/2023 LFTS (HEPA TIC PANEL ) alkaline phosphatase 42 U/L 39-117 Not Available [facility] [address] [place], [address], 11/09/2023 14:11:38 11/09/20 23 11/09/2023 LFTS (HEPA TIC PANEL ) total bilirubin 0.4 mg/dL 0.0-1. 2 Not Available [facility] ([facility] [address] [place], [address], 11/09/2023 14:11:38 11/09/20 23 11/09/2023 LFTS (HEPA TIC PANEL ) direct bilirubin <0.2 mg/dL 0-0.3 Not Available [facility] ([facility]) [address] [place], [address], 11/09/2023 14:11:38 11/09/20 23 11/09/2023 LFTS (HEPA TIC PANEL ) bilirubin (indirect) NOT CALCUL ATED mg/dL 0-1.5 Not Available [facility] ([facility] [address] [place], [address], 11/09/2023 14:11:38 11/09/20 23 11/09/2023 LFTS (HEPA TIC PANEL ) AST 18 U/L 0-37 Not Available [facility] ([facility]) [address] [place], [address], 11/09/2023 14:11:38 11/09/20 23 11/09/2023 LFTS (HEPA TIC PANEL ) ALT 13 U/L 0-40 Not Available [facility] ([facility]) [address] [place], [address], 11/09/2023 14:11:38 11/09/20 23 11/09/2023 LFTS (HEPA TIC PANEL ) total protein 6.7 g/dL 6.5-8. 0 Not Available [facility] ([facility] [address] [place], [address], 11/09/2023 14:11:38 11/09/20 23 11/09/2023 LFTS (HEPA TIC PANEL ) albumin 4.3 g/dL 3.9-4. 8 Not Available [facility] ([facility] [address] [place], [address], 11/09/2023 14:11:38 11/09/20 23 11/09/2023 LFTS (HEPA TIC PANEL ) globulin 2.4 g/dL 1-4.8 Not Available [facility] ([facility] [address] [place], [address], 11/09/2023 14:11:38 11/09/20 23 11/09/2023 LFTS (HEPA TIC PANEL ) A/G ratio 1.79 ratio 1.00-4 .80 Not Available [facility] [address] [place], [address], 11/09/2023 14:11:38 12/04/19 24 12/04/2023 CBC WBC 5.94 K/ L 4.23-9 .07 Not Available [address], [address], 12/04/2023 15:42:01 12/04/19 24 12/04/2023 CBC RBC 5.37 M/ L 4.63-6 .08 Not Available [address], [address], 12/04/2023 15:42:01 12/04/19 24 12/04/2023 CBC HGB 15.8 g/dL 13.7-1 7.5 Not Available [address], [address], 12/04/2023 15:42:01 12/04/19 24 12/04/2023 CBC HCT 47.9 % 40.1-5 1.0 Not Available [address], [address], 12/04/2023 15:42:01 12/04/19 24 12/04/2023 CBC MCV 89.2 fL 79.0-9 2.2 Not Available [address], [address], 12/04/2023 15:42:01 12/04/19 24 12/04/2023 CBC MCH 29.4 pg 25.7-3 2.2 Not Available [address], [address], 12/04/2023 15:42:01 12/04/19 24 12/04/2023 CBC MCHC 33.0 g/dL 32.3-3 6.5 Not Available [address], [address], 12/04/2023 15:42:01 12/04/19 24 12/04/2023 CBC plt 271 K/ L 163-33 7 Not Available [address], [address], 12/04/2023 15:42:01 12/04/19 24 12/04/2023 CBC MPV 12.1 fL 9.4-12 .4 Not Available [address], [address], 12/04/2023 15:42:01 12/04/19 24 12/04/2023 CBC neut% 55.7 % 34.0-6 7.9 Not Available [address], [address], 12/04/2023 15:42:01 12/04/19 24 12/04/2023 CBC neut# 3.30 1.78-5 .38 Not Available [address], [address], 12/04/2023 15:42:01 12/04/19 24 12/04/2023 CBC lymph % 31.5 % 21.8-5 3.1 Not Available [address], [address], 12/04/2023 15:42:01 12/04/19 24 12/04/2023 CBC lymph # 1.87 K/ L 1.32-3 .57 Not Available [address], [address], 12/04/2023 15:42:01 12/04/19 24 12/04/2023 CBC mono% 7.2 % 5.3-12 .2 Not Available [address], [address], 12/04/2023 15:42:01 12/04/19 24 12/04/2023 CBC mono# 0.43 0.30-0 .82 Not Available [address], [address], 12/04/2023 15:42:01 12/04/19 24 12/04/2023 CBC eo% 4.0 % 0.8-7. 0 Not Available [address], [address], 12/04/2023 15:42:01 12/04/19 24 12/04/2023 CBC eo# 0.24 0.04-0 .54 Not Available [address], [address], 12/04/2023 15:42:01 12/04/19 24 12/04/2023 CBC baso% 1.3 % 0.2-1. 2 high Not Available [address], [address], 12/04/2023 15:42:01 12/04/19 24 12/04/2023 CBC baso# 0.08 0.00-0 .08 Not Available [address], [address], 12/04/2023 15:42:01 12/04/19 24 12/04/2023 CBC RDW-CV 13.1 % 11.6-1 4.4 Not Available [address], [address], 12/04/2023 15:42:01 12/04/19 24 12/04/2023 CBC Ig% 0.300 % 0.000- 1.500 Ig % >0.5 Indic ates possi ble Left Shift Not Available [address], [address], 12/04/2023 15:42:01 12/04/19 24 12/04/2023 CBC Ig# 0.020 0.000- 0.093 Not Available [address], [address], 12/04/2023 15:42:01 12/04/19 24 12/04/2023 CBC NRBC% 0.0 % 0.0-0. 2 Not Available [address], [address], 12/04/2023 15:42:01 12/04/19 24 12/04/2023 CBC NRBC# 0.000 0.000- 0.012 Not Available [address], [address], 12/04/2023 15:42:01 12/04/19 24 12/04/2023 PROTI ME PT 10.6 secon ds 9.0-10 .4 high Not Available [address], [address], 12/04/2023 15:55:15 12/04/19 24 12/04/2023 PROTI ME INR 1.1 0.9-1. [address] [place] Value of 2.0-3 .0 for proph ylaxi s of Venou s Thomb osis, and preve ntion of Embol ism. Sugge sted Value of 2.5-3 .5 for preve ntion of Recur rent Embol ism or patie nts with Mecha nical Prost hetic Heart Valve s. Not Available [address], [address], 12/04/2023 15:55:15 12/04/19 24 12/04/2023 URINA LYSIS color YELLOW yellow Not Available [address], [address], 12/04/2023 15:56:48 12/04/19 24 12/04/2023 URINA LYSIS clarity CLEAR clear Not Available [address], [address], 12/04/2023 15:56:48 12/04/19 24 12/04/2023 URINA LYSIS glucose NEGATI VE negati ve Not Available [address], [address], 12/04/2023 15:56:48 12/04/19 24 12/04/2023 URINA LYSIS bilirubin NEGATI VE negati ve Not Available [address], [address], 12/04/2023 15:56:48 12/04/19 24 12/04/2023 URINA LYSIS ketones NEGATI VE negati ve Not Available [address], [address], 12/04/2023 15:56:48 12/04/19 24 12/04/2023 URINA LYSIS specific gravity 1.025 1.001- 1.035 Not Available [address], [address], 12/04/2023 15:56:48 12/04/19 24 12/04/2023 URINA LYSIS pH 5.5 5.0-8. 0 Not Available [address], [address], 12/04/2023 15:56:48 12/04/19 24 12/04/2023 URINA LYSIS protein NEGATI VE negati ve Not Available [address], [address], 12/04/2023 15:56:48 12/04/19 24 12/04/2023 URINA LYSIS urobilinogen 0.2 E.U./D L <1.0 Not Available [address], [address], 12/04/2023 15:56:48 12/04/19 24 12/04/2023 URINA LYSIS nitrates NEGATI VE negati ve Not Available [address], [address], 12/04/2023 15:56:48 12/04/19 24 12/04/2023 URINA LYSIS blood NEGATI VE negati ve Not Available [address], [address], 12/04/2023 15:56:48 12/04/19 24 12/04/2023 URINA LYSIS leukocytes NEGATI VE negati ve Not Available [address], [address], 12/04/2023 15:56:48 12/04/19 24 12/04/2023 HGB A1C hemoglobin A1C 5.5 % 4.8-6. 0 Goal: <7% in Patie nts with Diabe risa An A1c betwe en 5.7-6 .4% is ident ified as pre-d iabet es and sugge sts risk for progr essio n to diabe risa Two a1c value s of 6.5% or highe r is consi stent with a diagn osis of diabe risa but may need furth er confi rmati on Not Available [address], [address], 12/04/2023 16:03:58 12/04/19 24 12/04/2023 HGB A1C estimated average glucose 111.2 mg/dL Not Available [address], [address], 12/04/2023 16:03:58 12/04/19 24 12/04/2023 COMP. METAB OLIC PANEL glucose 96 mg/dL 70-100 Not Available [address], [address], 12/04/2023 16:12:52 12/04/19 24 12/04/2023 COMP. METAB OLIC PANEL BUN 41 mg/dL 7-18 high Not Available [address], [address], 12/04/2023 16:12:52 12/04/19 24 12/04/2023 COMP. METAB OLIC PANEL creatinine 1.0 mg/dL 0.8-1. 3 Not Available [address], [address], 12/04/2023 16:12:52 12/04/19 24 12/04/2023 COMP. METAB OLIC PANEL B/C 41.0 ratio Not Available [address], [address], 12/04/2023 16:12:52 12/04/19 24 12/04/2023 COMP. METAB OLIC PANEL GFR >=60ML /MIN mL/mi n normal >=60m L/min - Yeny l or midly reduc ed <60mL /min- Decre ased kidne y funct ion <15mL /min - Kidne y failu re Quick y Medic al Group calcu lates estim ated Glome rular Filtr ation Rate (eGFR ) using the Chron ic Kidne y Disea se Epide miolo gy Colla borat ion (CKD- EPI) Equat ion (Neelima r et. al 2020) as recom clair d by the Natio nal Kidne y Found ation . eGFR is based on age, serum creat inine , and sex. CKD-E PI does not calcu late eGFR by race, does not apply to child kylah (age <18 years ), and shoul d not be used in pregn alfredo. Not Available [address], [address], 12/04/2023 16:12:52 12/04/19 24 12/04/2023 COMP. METAB OLIC PANEL sodium 140 mmol/ L 136-14 5 Not Available [address], [address], 12/04/2023 16:12:52 12/04/19 24 12/04/2023 COMP. METAB OLIC PANEL potassium 4.7 mmol/ L 3.5-5. 1 Not Available [address], [address], 12/04/2023 16:12:52 12/04/19 24 12/04/2023 COMP. METAB OLIC PANEL chloride 103 mmol/ L 96-107 Not Available [address], [address], 12/04/2023 16:12:52 12/04/19 24 12/04/2023 COMP. METAB OLIC PANEL anion gap 9.0 5.0-15 .0 Not Available [address], [address], 12/04/2023 16:12:52 12/04/19 24 12/04/2023 COMP. METAB OLIC PANEL CO2 28 mmol/ L 21-32 Not Available [address], [address], 12/04/2023 16:12:52 12/04/19 24 12/04/2023 COMP. METAB OLIC PANEL calcium 9.1 mg/dL 8.5-10 .3 Not Available [address], [address], 12/04/2023 16:12:52 12/04/19 24 12/04/2023 COMP. METAB OLIC PANEL total protein 6.8 g/dL 6.4-8. 2 Not Available [address], [address], 12/04/2023 16:12:52 12/04/19 24 12/04/2023 COMP. METAB OLIC PANEL albumin 3.8 g/dL 3.4-5. 0 Not Available [address], [address], 12/04/2023 16:12:52 12/04/19 24 12/04/2023 COMP. METAB OLIC PANEL globulin 3.0 g/dL Not Available [address], [address], 12/04/2023 16:12:52 12/04/19 24 12/04/2023 COMP. METAB OLIC PANEL A/G 1.3 ratio 0.8-2. 0 Not Available [address], [address], 12/04/2023 16:12:52 12/04/19 24 12/04/2023 COMP. METAB OLIC PANEL total bilirubin 0.40 mg/dL 0.00-1 .00 Not Available [address], [address], 12/04/2023 16:12:52 12/04/19 24 12/04/2023 COMP. METAB OLIC PANEL AST 14 U/L 0-37 Not Available [address], [address], 12/04/2023 16:12:52 12/04/19 24 12/04/2023 COMP. METAB OLIC PANEL ALT 27 U/L 6-63 Not Available [address], [address], 12/04/2023 16:12:52 12/04/19 24 12/04/2023 COMP. METAB OLIC PANEL alk. phos. 48 U/L 50-136 low Not Available [address], [address], 12/04/2023 16:12:52 12/04/19 24 12/04/2023 LIPID PANEL cholesterol 219 mg/dL <200 mg/dl Brendan able 200-2 39 mg/dl Borde rline High >240 mg/dl High Not Available [address], [address], 12/04/2023 16:12:54 12/04/19 24 12/04/2023 LIPID PANEL triglyceride s 64 mg/dL <150 mg/dL Yeny l 150-1 99 mg/dL Borde rline High 200-4 99 mg/dL High >500 mg/dL Very High Not Available [address], [address], 12/04/2023 16:12:54 12/04/19 24 12/04/2023 LIPID PANEL direct HDL 61 mg/dL <40 mg/dl - Major Risk for CHD >60 mg/dl - Negat rosenda Risk for CHD Not Available [address], [address], 12/04/2023 16:12:54 12/04/19 24 12/04/2023 LDL - CALCU LATED LDL - calculated 145.2 RISK CATEG ORY LDL GOAL _ CHD or CHD Risk Equiv alent s <100 mg/dl (10-y ear risk >20%) 2+ Risk Facto rs <130 mg/dl (10-y ear risk <= 20%) 0-1 Risk Facto r <160 mg[facility] with 0-1 risk facto r have a 10 year risk <10%, thus 10 year risk asses ment in peopl e with 0-1 risk facto r is not neces brenda. Not Available [address], [address], 12/04/2023 16:12:55 04/10/20 24 04/16/2024 DRUG SCREE N-8, URINE , WITH CONFI RMATI ON GC/MS amphetamine NEG. negati ve Not Available [address], [address], 04/16/2024 12:48:34 04/10/20 24 04/16/2024 DRUG SCREE N-8, URINE , WITH CONFI RMATI ON GC/MS barbiturates NEG. negati ve Not Available [address], [address], 04/16/2024 12:48:34 04/10/20 24 04/16/2024 DRUG SCREE N-8, URINE , WITH CONFI RMATI ON GC/MS benzodiazepi ne NEG. negati ve Not Available [address], [address], 04/16/2024 12:48:34 04/10/20 24 04/16/2024 DRUG SCREE N-8, URINE , WITH CONFI RMATI ON GC/MS cocaine NEG. negati ve Not Available [address], [address], 04/16/2024 12:48:34 04/10/20 24 04/16/2024 DRUG SCREE N-8, URINE , WITH CONFI RMATI ON GC/MS opiates NEG. negati ve Not Available [address], [address], 04/16/2024 12:48:34 04/10/20 24 04/16/2024 DRUG SCREE N-8, URINE , WITH CONFI RMATI ON GC/MS methadone NEG. negati ve Not Available [address], [address], 04/16/2024 12:48:34 04/10/20 24 04/16/2024 DRUG SCREE N-8, URINE , WITH CONFI RMATI ON GC/MS fentanyl NEG. negati ve Syva EMIT II Limit s of Detec tion (cutt -off value s) Karen Expraffy d: Amphe tamin es: 1000 ng/ml Opiat es: 300 ng/ml Sondra tuate s: 200 ng/ml Oxyco done 100 ng/ml Benzo diaze pines : 200 ng/ml Metha done 300 ng/ml Cocai ne: 300 ng/ml Fenta nyl 1 ng/ml Not Available [address], [address], 04/16/2024 12:48:34 04/10/20 24 04/16/2024 DRUG SCREE N-8, URINE , WITH CONFI RMATI ON GC/MS oxycodone NEG. negati ve Not Available [address], [address], 04/16/2024 12:48:34 09/28/20 24 09/29/2024 DRUG SCREE N-8, URINE , WITH CONFI RMATI ON GC/MS amphetamine NEG. negati ve Not Available [address], [address], 09/29/2024 10:34:03 09/28/20 24 09/29/2024 DRUG SCREE N-8, URINE , WITH CONFI RMATI ON GC/MS barbiturates NEG. negati ve Not Available [address], [address], 09/29/2024 10:34:03 09/28/20 24 09/29/2024 DRUG SCREE N-8, URINE , WITH CONFI RMATI ON GC/MS benzodiazepi ne NEG. negati ve Not Available [address], [address], 09/29/2024 10:34:03 09/28/20 24 09/29/2024 DRUG SCREE N-8, URINE , WITH CONFI RMATI ON GC/MS cocaine NEG. negati ve Not Available [address], [address], 09/29/2024 10:34:03 09/28/20 24 09/29/2024 DRUG SCREE N-8, URINE , WITH CONFI RMATI ON GC/MS opiates NEG. negati ve Not Available [address], [address], 09/29/2024 10:34:03 09/28/20 24 09/29/2024 DRUG SCREE N-8, URINE , WITH CONFI RMATI ON GC/MS methadone NEG. negati ve Not Available [address], [address], 09/29/2024 10:34:03 09/28/20 24 09/29/2024 DRUG SCREE N-8, URINE , WITH CONFI RMATI ON GC/MS fentanyl NEG. negati ve Syva EMIT II Limit s of Detec tion (cutt -off value s) Karen Expan d: Amphe tamin es: 1000 ng/ml Opiat es: 300 ng/ml Sondra tuate s: 200 ng/ml Oxyco done 100 ng/ml Benzo diaze pines : 200 ng/ml Metha done 300 ng/ml Cocai ne: 300 ng/ml Fenta nyl 1 ng/ml Not Available [address], [place], [address], 09/29/2024 10:34:03 09/28/20 24 09/29/2024 DRUG SCREE N-8, URINE , WITH CONFI RMATI ON GC/MS oxycodone NEG. negati ve Not Available [facility] [address] [facility], [place], [address], 09/29/2024 10:34:03 11/09/20 23 11/09/2023 CT abdom en/pe lvis with contr ast CT ABDOME N/PELV IS WITH CONTRA ST Referr ing clinic anusha's provid ed indica tion for this examin ation in Epic: * Flank pain, kidney stone suspec kelly; * Abdomi nal absces s/infe ction suspec kelly; Broad differ ential , suspec t a kidney stone but no blood in urine. Contra st please . TECHNI QUE: Multid etecto r-row CT of the abdome n and pelvis was perfor med after admini strati on of intrav enous contra st using tailor ed dose modula tion techni ques. Images were recons tructe d in the axial, roque l, and sagitt al planes . COMPAR KATHE: None FINDIN GS: Lower Chest: No consol idatio n or pleura l effusi ons. Minima l depend ent atelec tasis. Subseg mental linear atelec tasis in the right lung base. Polygo nal 6 mm nodula r opacit y in the lingul a (4:19) likely postin flamma tory. Mild bronch ial wall thicke annette. Mildly patulo us lower esopha joselyn. Normal heart size. No perica rdial fluid. A few calcif icatio ns of the aortic valve. Liver: Hepati c parenc hyma shows diffus e hypoat tenuat ion repres enting fatty liver. Subcen timete r anteri or subcap sular focal enhanc ement in segmen t 8 (3:18) , may be perfus ional or artifa ctual. No other focal lesion s Biliar y: Normal gallbl adder. No biliar y ductal dilata tion. Spleen : No spleno megaly . 5 mm low-at tenuat ion lesion at the superi or pole most likely reflec ts a spleni c cyst (4:35) . Pancre as: No masses or ductal dilata tion. Adrena l Glands : No nodule s. Kidney s/Uret ers: 1 mm nonobs tructi ve calcul us in the right renal upper calyx (6:61, 4:77). Subcen timete r left renal hypoat tenuat ing lesion s (3:31, 35, 36) are too small to charac terize but may repres ent cysts. 1.1 cm right para patent cyst (3:38) . No solid masses , stones , or hydron ephros is. Bowel: Normal append ix (3:61) . Normal small bowel and colon. Perito neum/R etrope ritone um: No masses , pneumo perito neum, or fluid. Lymph Nodes: No lympha denopa thy. Pelvic Organs /Bladd er: 1.0 x 0.8 cm hypera ttenua ting nodule in the left periur ethral midlin e prosta te (3:90) , indete rminat e may repres ent a BPH nodule . Normal urinar y bladde r. Vessel s: No abdomi nal aortic aneury sm. Mild athero sclero tic calcif icatio n in the abdomi nal aorta. Bones/ Soft Tissue s: Mild degene rative change s and osteop enia in the spine. Lucent lesion s along the latera l acetab ular rim more on the right (6:56, 60), likely repres enting degene rative change s. Mild to modera te narrow ing of left hip cartil age with severe narrow ing on the right side associ ated with subcho ndral sclero sis and hypert rophic change . IMPRES KATERINE: 1. No clear cause identi fied by CT for patien t's sympto ms. Specif ically , there is no eviden ce of obstru ctive uropat hy. Puncta te nonobs tructi ve right renal calcul us. 2. Hepati c steato sis. ATTEST ATION: I, Cate briceño as steven tavares, have review ed the images for this case and if necess luis fernando edited the report origin venita singh by Elli Smith . Electr onical ly Signed by: Cate briceño on 2022 5:41 PM Interp reted by: Ashish Wilder MD, MPH [facility] , Elli carlson MD, MBBS Signed by: Ashish Wilder MD, MPH Final result RICHIE garrett[address] [place] [address] [facility] [address] [place], [address], 11/12/2023 08:21:24 12/04/19 24 12/04/2023 elect judy campbell am No observ ation record ed. [address], [address], 12/04/2023 12:38:51 12/04/19 elect judy campbell am No observ ation record ed. [email or web address] Not Available 2023 12:38:51 Result Notes None recorded. Problems Name Problem SNOMED Code Status Onset Date Resolution Date Notes Provider Name and Address Organization Details Recorded Time Inguinal hernia without obstruct ion AND without gangrene Completed 06/13/2011 Keagan Pizarro MD [address] [place] [address], [phone] , [facility], [place] 6 14:20:27 Lateral epicondy litis 130532926 Completed 06/13/2011 Keagan Pizarro MD [address] [place] [address], [phone] , [facility], [place] 6 14:20:27 Insomnia 705920460 Active Not Available [facility] 3 22:49:07 Knee joint finding 170152162 Completed 06/13/2011 Keagan Pizarro MD [address] [place] [address], [phone] , [facility], [place] 6 14:20:27 Malaise and fatigue 948496581 Completed 200106/13/2011 Keagan Pizarro MD [address] [place] [address], [phone] , [facility], [place] 6 14:20:27 Hyperlip idemia 41723124 Completed 200106/13/2011 Keagan Pizarro MD [address] [place] [address], [phone] , [facility], [place] 6 14:20:27 Subcutan eous nodule 96831013 Completed 200106/13/2011 Keagan Pizarro MD [address] [place] [address], [phone] , [facility], [place] 6 14:20:27 Breast lump 44831843 Completed 200106/13/2011 Keagan Pizarro MD [address] [place] [address], [phone] , [facility], [place] 6 14:20:27 Stomatit is 08316212 Completed 200206/13/2011 Keagan Pizraro MD [address] [place] [address], [address] , [facility], [place] 6 14:20:27 Ceballos's palsy 160438300 Completed 200206/13/2011 Keagan Pizarro MD [address] [place] [address], [phone] , [facility], [place] 6 14:20:27 Acute stress disorder 88681593 Completed 200406/13/2011 Keagan Pizarro MD [address] [place] [address], [phone] , [facility], [place] 6 14:20:27 Impaired fasting glycemia 105136142 Completed 200406/13/2011 Keagan Pizarro MD [address] [place] [address], [phone] , [facility], [place] 6 14:20:27 Sciatica 52059013 Completed 200406/13/2011 Keagan Pizarro MD [address] [place] [address], [phone] , [facility], [place] 6 14:20:27 Disorder of trunk 843509345 Completed 200406/13/2011 Keagan Pizarro MD [address] [place] [address], [address] , [facility], [place] 6 14:20:27 Low back pain 031609713 Active 2004 Not Available [facility] 3 22:49:07 Knee pain Completed 200506/13/2011 Keagan Pizarro MD [address] [place] [address], [phone] , [facility], [place] 6 14:20:27 Pain in limb 82381199 Completed 200506/13/2011 Keagan Pizarro MD [address] [place] [address], [address] , [facility], [place] 6 14:20:27 Joint pain in ankle and foot Completed 200506/13/2011 Keagan Pizarro MD [address] [place] [address], [phone] , [facility], [place] 6 14:20:27 Transien t insomnia 363703098 Completed 200706/13/2011 Keagan Pizarro MD [address] [place] [address], [phone] , [facility], [place] 6 14:20:27 Mixed hyperlip idemia 094293423 Active 2018 Not Available [facility] 3 22:49:07 Osteoart hritis of hip 488107410 Active 2022 Right, Dr Henry , consider ing surgery Erica Dinero PA-C [address] [place] [address], [phone] , [facility], [place] 3 09:15:52 Steatoti c liver disease 592028598 Active 2022 Erica Dinero PA-C [address] [place] [address], [address] , [facility], [place] 3 08:21:14 Kidney stone 17145808 Active 2022 Erica Dinero PA-C [address] [place] [address], [phone] , [facility], [place] 3 08:21:21 Seborrhe ic keratosi s 255829148 Active 2023 Sintia Torres RN [facility] 4 15:24:19 History of malignan t neoplasm of pharynx 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 Procedures Surgical History Date Name Laterality Status Provider Name and Address Organization Details Recorded Time 3 Medicare Wellness Visit completed Ravinder Figueroa [facility] 01/16/2023 13:58:14 3 COPD Screening Questions completed Ravinder Figueroa [facility] 01/16/2023 14:04:12 3 Hernia Repair completed Sintia Kwok MD [address] [place] [address], [phone], [facility], [place] 11/08/2023 16:35:39 2 prevention-shant al alcohol misuse screening completed Ruth Peguero PA-C [address] [place] [address], [phone], [facility], [place] 01/15/2022 16:17:45 0 prevention-card iovascular risk reduction counseling completed Lucero Conti [facility] 09/28/2020 08:09:24 0 prevention-shant al alcohol misuse screening completed Lucero Conti [facility] 09/28/2020 08:09:24 3 Vasectomy/Weebe r completed Balbir Leon III, MD [address] [place] [address], [phone], [facility], [place] 08/28/2013 10:37:00 3 Knee Replacement completed Sintia Kwok MD [address] [place] [address], [phone], [facility], [place] 11/08/2023 15:37:40 3 Knee Replacement completed Sintia Kwok MD [address] [place] [address], [phone], [facility], [place] 11/08/2023 15:37:18 1 Hernia Repair completed Sintia Kwok MD [address] [place] [address], [phone], [facility], [place] 11/08/2023 15:36:26 8 Colonoscopy completed Sintia Kwok MD [address] [place] [address], [phone], [facility], [place] 11/08/2023 15:40:17 6 excision of lipoma completed Sintia Kwok MD [address] [place] [address], [phone], [facility], [place] 11/08/2023 16:25:01 9 laparotomy completed Sintia Kwok MD [address] [place] [address], [phone], [facility], [place] 11/08/2023 15:36:51 Imaging Results None recorded. Procedure Notes None recorded. Medical Equipment None Reported. Allergies No known drug allergies Medications Name Sig Start Date Stop Date Status Note LastModified by Organization Details LastModified Time compound drug 04/16 completed Not Available Not Available Not Available Prescript ion - Prior Authoriza tion Request 07/29 completed Not Available Not Available Not Available carisopro dol 350 mg tablet Take 1 tablet 4 times a day by oral route as needed. 2024 active CSRP - TO FILL 06/08/25 Not Available Not Available Not Available amoxicill in 500 mg capsule TAKE 4 CAPSULES BY MOUTH 1 HOUR PRIOR TO DENTAL APPOINTM ENT active Not Available Not Available No t Available fluconazo le 100 mg tablet TAKE 2 TABLETS BY MOUTH ON DAY 1, THEN 1 TAB ON DAYS 2-10 04/16 completed Not Available Not Available Not Available silver sulfadiaz ine 1 % topical cream 04/16 completed Not Available Not Available Not Available nystatin 100,000 unit/mL oral suspensio n 04/16 completed Not Available Not Available Not Available doxycycli ne hyclate 100 mg capsule Take 1 capsule every day by oral route for 14 days. 04/08 completed Not Available Not Available Not Available Tylox 5 mg-500 mg capsule Take 1 capsule by oral route every 6 hours as needed 12/04 completed Not Available Not Available Not Available ibuprofen 800 mg tablet Take 1 tablet 3 times a day by oral route as needed. 2012 [address] Pres[address] ed by Dr. Osman . Not Available Not Available Not Available Lidocaine Viscous 2 % mucosal solution PLEASE SEE ATTACHED FOR DETAILED DIRECTIO NS 04/16 completed Not Available Not Available Not Available meloxicam 15 mg tablet TAKE 1 TABLET BY MOUTH EVERY DAY 01/27 completed Had hip surgery Not Available Not Available Not Available L-Carniti ne 500 mg tablet Take by oral route. active Not Available Not Available No t Available prednison e 20 mg tablet 3 daily x 3 days, 2 daily x 3 days, 1 daily x 3 days, 0.5 tab x 4 days 09/18 completed Not Available Not Available Not Available olanzapin e 5 mg tablet TAKE 0.5 TABLETS (2.5 MG TOTAL) BY MOUTH NIGHTLY. TAKE ON DAYS 2-4 AFTER CHEMOTHE RAPY 04/16 completed Not Available Not Available Not Available prochlorp erazine maleate 10 mg tablet TAKE 1 TABLET BY MOUTH 4 TIMES DAILY (EVERY 6 HOURS) NEEDED FOR NAUSEA OR VOMITING . 04/16 completed Not Available Not Available Not Available aspirin 81 mg tablet,de layed release TAKE 1 TABLET BY MOUTH 2 TIMES A DAY. 04/10 completed Not Available Not Available Not Available tramadol 50 mg tablet TAKE 1 OR 2 TABLETS BY MOUTH 4 TIMES A DAY NEEDED FOR PAIN 02/20 completed Not Available Not Available Not Available acyclovir 800 mg tablet TAKE 1 TABLET BY MOUTH FIVE TIMES DAILY FOR 10 DAYS 04/08 completed Not Available Not Available Not Available ondansetr on 8 mg disintegr ating tablet DISSOLVE 1 TABLET BY MOUTH ON TONGUE 3 TIMES A DAY EVERY 8 HOURS NEEDED FOR NAUSEA AND VOMITING 04/16 completed Not Available Not Available Not Available pantopraz ole 20 mg tablet,de layed release TAKE 1 TABLET (20 MG TOTAL) BY MOUTH EVERY MORNING BEFORE BREAKFAS T. 01/27 completed Had hip surgery Not Available Not Available Not Available cefadroxi l 500 mg capsule TAKE 1 CAPSULE BY MOUTH TWICE A DAY 01/27 completed Not Available Not Available Not Available meloxicam 7.5 mg tablet TAKE 1 TABLET BY MOUTH EVERY DAY 07/29 completed Not Available Not Available Not Available lorazepam 0.5 mg tablet Take 1 tablet as needed by oral route at bedtime. 01/15 completed Not Available Not Available Not Available methocarb david 750 mg tablet TAKE 1 TABLET BY MOUTH 3 TIMES A DAY NEEDED FOR MUSCLE SPASMS. 04/10 completed Had hip surgery Not Available Not Available Not Available hydrocort isone-pan tic acid 1 %-2 % ear drops INSTILL 2 DROPS INTO AFFECTED EAR(S) 4 TIMES A DAY 04/10 completed Not Available Not Available Not Available benzonata te 100 mg capsule TAKE 1 CAPSULE BY MOUTH THREE TIMES A DAY NEEDED FOR COUGH 04/16 completed Not Available Not Available Not Available dexametha sone 2 mg tablet TAKE 1 TABLET BY MOUTH DAILY NEEDED (LEFT-SI DED EAR PAIN). 04/16 completed Not Available Not Available Not Available pantopraz ole 40 mg tablet,de layed release TAKE 1 TABLET BY MOUTH TWICE A DAY active Not Available Not Available No t Available dexametha sone 4 mg tablet TAKE 1 TABLET BY MOUTH 2 TIMES A DAY WITH MEALS. 04/16 completed Not Available Not Available Not Available hydrocodo ne-homatr opine 5 mg-1.5 mg/5 mL oral solution 04/16 completed Not Available Not Available Not Available gabapenti n 300 mg capsule TAKE 1 CAPSULE (300 MG TOTAL) BY MOUTH DAILY NEEDED FOR PAIN. active Not Available Not Available No t Available diclofena c sodium 75 mg tablet,de layed release active Not Available Not Available Not Available hydroxyzi ne HCl 25 mg tablet TAKE 1 TABLET BY MOUTH EVERY DAY AT BEDTIME NEEDED active Not Available Not Available No t Available magnesium 250 mg tablet Take 1 tablet every day by oral route. 04/10 completed Not Available Not Available Not Available lorazepam 1 mg tablet TAKE 1 TABLET BY MOUTH AT BEDTIME NEEDED FOR SLEEP active Not Available Not Available No t Available levofloxa mahi 500 mg tablet 04/16 completed Not Available Not Available Not Available Valium 10 mg tablet Take 1 tab one hour before procedur e 2012 active Not Available Not Available Not Avai lable scopolami ne 1 mg over 3 [address] patch PL[address] 1 PATCH ON THE SKIN EVERY THIRD DAY (72 HRS). 04/16 completed Not Available Not Available Not Available methylpre dnisolone 4 mg tablets in a dose pack TAKE 6 TABLETS ON DAY 1 DIRECTED ON PACKAGE AND DECREASE BY 1 TAB EACH DAY FOR A TOTAL OF 6 DAYS 04/10 completed Not Available Not Available Not Available Percocet 5 mg-325 mg tablet 1 OR 2 PO Q6 hrs PRN/PAIN 2012 active Not Available Not Available Not Avai lable fluconazo le 40 mg/mL oral suspensio n 04/16 completed Not Available Not Available Not Available metronida zole 1 % topical cream APPLY A THIN LAYER TO THE AFFECTED AREA(S) BY TOPICAL ROUTE ONCE DAILY 2023 active Not Available Not Available Not Avai lable mometason e 0.1 % topical cream MIX 1:1 WITH MOISTURI ZER AND APPLY TO BOTH SIDES OF NECK ONCE DAILY STARTING FIRST DAY OF RADIATIO N 04/16 completed Not Available Not Available Not Available amoxicill in 875 mg-potass ium clavulana te 125 mg tablet TAKE 1 TABLET BY MOUTH TWICE A DAY 04/10 completed Not Available Not Available Not Available oxycodone 5 mg tablet TAKE 1 TABLET BY MOUTH FOUR TIMES A DAY EVERY 6 HOURS NEEDED FOR SEVERE PAIN MAX 20 MG/DAY 04/16 completed not taking med 09/28/24 Not Available Not Available Not Available Denta 5000 Plus 1.1 % cream PPLY THIN RIBBON TO TOOTH BRUSH DAILY AT BEDTIME active Not Available Not Available No t Available metronida zole 1 % topical gel APPLY SPARINGL Y TO AFFECTED AREA EVERY DAY active Not Available Not Available No t Available magnesium active Not Available Not Lila ilable Not Available Vitamin C 1 daily unsure of dose. active Not Available Not Available No t Available warfarin active Not Available Not Avai lable Not Available iron active Not Available Not Availa ble Not Available Colace 100mg. takes 2 along with oxycodon e. active Not Available Not Available No t Available Aspir-81 one daily 07/01 completed Not Available Not Available Not Available Vitamin D 1 tab daily 25 mg 04/10 completed Not Available Not Available Not Available Neurontin 100mg 2 caps tid active Not Available Not Available No t Available thymol (bulk) 4% ethyl alcohol solution 07/01 completed BID under nails Not Available Not Available Not Available Celebrex active Not Available Not Avai lable Not Available multivita min active Not Available Not Available Not Available alpha lipoic acid active 500 mg Not Available Not Available Not Available oxycodone 10 mg tablet Take 1 tablet every 4 hours by oral route. active Not Available Not Available No t Available omeg-3-ep a-dha-fis h oil-flax- E 1 tab daily. 04/16 completed Not Available Not Available Not Available Flucelvax Quad (PF) 60 mcg (15 mcg x 4)/0.5 mL IM syringe TO BE ADMINIST ERED BY [employer] FOR IMMUNIZA TION 02/20 completed Not Available Not Available Not Available Shingrix (PF) 50 mcg/0.5 mL intramusc ular suspensio n, kit ADM 0.5ML IM UTD 06/24 completed Not Available Not Available Not Available Flucelvax Quad (PF) 60 mcg (15 mcg x 4)/0.5 mL IM syringe TO BE ADMINIST ERED BY [employer] FOR IMMUNIZA TION 10/26 completed Not Available Not Available Not Available Vitals Date Recorded Body height Body mass index (BMI) Body weight Heart rate Oxygen saturation Oxygen saturation in Arterial blood by Pulse oximetry Systolic And Diastolic Provider Name and Address Organization Details Last Updated DateTime 4 182.12 cm 29.7 kg/m2 22540.5 4 g 59 /min 98 % 98 % 108/64 mm[Hg] Giuliana Gold [facility] 4 11:17:55 Date Recorded Body height Body mass index (BMI) Body weight Heart rate Body temperature Systolic And Diastolic Provider Name and Address Organization Details Last Updated DateTime 4 182.12 cm 30.1 kg/m2 88122.3 2 g 64 /min 98.2 [degF] 104/66 mm[Hg] Joe Moulton Yaritza [facility] 4 12:10:31 Date Recorded Body height Body mass index (BMI) Body weight Oxygen saturation Oxygen saturation in Arterial blood by Pulse oximetry Heart rate Systolic And Diastolic Provider Name and Address Organization Details Last Updated DateTime 4 182.12 cm 29.1 kg/m2 71968.1 7 g 97 % 97 % 63 /min 100/72 mm[Hg] Echo Zamora MA [facility] 4 15:18:04 Date Recorded Body height Body mass index (BMI) Body weight Oxygen saturation Oxygen saturation in Arterial blood by Pulse oximetry Heart rate Systolic And Diastolic Provider Name and Address Organization Details Last Updated DateTime 5 178.44 cm 27.6 kg/m2 58430.9 2 g 96 % 96 % 51 /min 112/72 mm[Hg] Pamella Lee [facility] 5 15:49:43 Date Recorded Body height Body mass index (BMI) Body weight Heart rate Systolic And Diastolic Provider Name and Address Organization Details Last Updated DateTime 09/28/2024 182.12 cm 26.5 kg/m2 21083.13 g 78 /min 98/62 mm[Hg] Malinda Adams [facility] 09/28/2024 14:38:06 Social History Question Answer Notes LastModified by Organizat ion Details LastModified Time Tobacco Smoking Status Former Smoker 7 PK YRS. QUIT 1994 Echo Zamora MA [facility] 04/10/2024 15:14:50 Do You Wear A Helmet When Biking? Yes Information not available 04/09/2019 What Is Your Level Of Caffeine Consumption? Occasional [email or web address] Information not available 04/10/2024 What Type Of Diet Are You Following? REGULAR Information not available 04/09/2019 Which Illicit Or Recreational Drugs Have You Used? None Denies Information not available 01/15/2022 What Is The Highest Grade Or Level Of School You Have Completed Or The Highest Degree You Have Received? [id number] Information not available 01/15/2022 Have There Been Any Changes To Your Family Or Social Situation? No [email or web address] Information not available 04/10/2024 How Many Days In The Past Year Have You Had A Heavy Drinking Consumption (4+ Female, 5+ Male)? 0 Information not available 01/15/2022 Are There Any Guns Present In Your Home? No Information not available 01/15/2022 Do You Use Insect Repellent Routinely? No Information not available 01/15/2022 Live Alone Or With Others? With Others [email or web address] Information not available 09/06/2015 CSRP Contract Signed And Discussed Yes 09/28/24 (GRISELDA) [email or web address] Information not available 07/30/2023 Patient Has Health Care Proxy Signed And In Chart Yes In Chart 09/28/20 CHRIS [email or web address] Information not available 10/29/2019 Marital Status Information not available 10/04/2011 Mosquito Repellent Used Routinely Yes Information not available 04/09/2019 What Was The Date Of Your Most Recent Tobacco Screening? 04/16/2025 [email or web address] Information not available 04/16/2025 How Many Children Do You Have? 0 [email or web address] Information not available 10/04/2011 What Is Your Relationship Status? Information not available 01/15/2022 Do You Use Your Seat Belt Or Car Seat Routinely? Yes Information not available 01/15/2022 Seat Belts Used Routinely Yes [email or web address] Information not available 10/04/2011 Are You Sexually Active? Yes Information not available 04/09/2019 Smoke Alarm In Home Yes [email or web address] Information not available 10/04/2011 Do You Have Smoke And Carbon Monoxide Detectors In Your Home? Yes [email or web address] Information not available 04/10/2024 Are You Passively Exposed To Smoke? No Information not available 01/15/2022 How Much Tobacco Do You Smoke? No Information not available 01/15/2022 General Stress Level Medium Information not available 04/09/2019 Do You Use Sunscreen Routinely? Yes Information not available 04/09/2019 How Many Days In The Past Year Have You Consumed 5 Or More Drinks? 0 Information not available 01/15/2022 Sex: Male Functional Status Question Answer Note LastModified by Organizat ion Details LastModified Time Do you use any illicit or recreational drugs? No Information not available 01/15/2022 Do you or have you ever used any other forms of tobacco or nicotine? No Information not available 01/15/2022 What is your level of alcohol consumption? Occasional [email or web address] Information not available 04/10/2024 Do you or have you ever used smokeless tobacco? Never used smokeless tobacco Information not available 01/15/2022 Are you currently employed? 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 Never used electronic cigarettes Information not available 01/15/2022 What is your exercise level? Moderate 3 days/wl Information not available 01/15/2022 Mental Status None recorded. Family History Relationship Description Onset Age of this Age Resolved Age Notes LastModified by Organization Details LastModified Time Father Malignant neoplasm of brain piverson Not available 2022 16:21:39 Maternal Grandmother Malignant tumor of colon 70 piverson Not available 2022 16:21:53 Paternal Uncle Malignant neoplasm of prostate 76 also second cousin piverson Not available 11/08/2023 16:22:38 Medical History Condition Response acne Y NEUROLOGIC Y Immunizations Vaccine Type Date Status Note Provider Nam e and Address Organization Details Recorded Time influenza, unspecified formulation 5 completed Not Available [facility] 07/08/2023 22:49:07 influenza, unspecified formulation 5 completed Not Available [facility] 07/08/2023 22:49:07 Td(adult) unspecified formulation 7 completed Not Available [facility] 07/08/2023 22:49:07 Influenza, split virus, trivalent, preservative 2 completed Not Available [facility] 12/05/2019 02:28:10 Tdap 3 completed Not Available [facility] 12/05/2019 02:16:05 influenza, unspecified formulation 0 completed Not Available [facility] 07/08/2023 22:49:07 Influenza, split virus, trivalent, preservative 9 completed Not Available [facility] 12/05/2019 02:39:37 influenza, unspecified formulation 0 completed Not Available [facility] 07/08/2023 22:49:07 zoster live 3 completed Not Available [facility] 12/05/2019 02:26:36 Influenza, split virus, trivalent, preservative 1 completed Not Available [facility] 07/08/2023 22:49:08 pneumococcal polysaccharide PPV23 4 completed Not Available [facility] 12/05/2019 02:14:56 Influenza, split virus, quadrivalent, PF 4 completed Not Available [facility] 12/05/2019 02:26:06 Influenza, split virus, quadrivalent, PF 5 completed Not Available [facility] 12/05/2019 02:28:11 Influenza, high-dose, trivalent, PF 3 completed Not Available [facility] 07/08/2023 22:49:07 Influenza, split virus, quadrivalent, PF 9 completed Not Available [facility] 12/05/2019 02:24:07 Influenza, split virus, quadrivalent, preservative 8 completed Not Available [facility] 07/08/2023 22:49:07 Influenza, split virus, quadrivalent, preservative 8 completed Not Available [facility] 07/08/2023 22:49:07 Influenza, split virus, quadrivalent, PF 0 completed Ruth Peguero PA-C [address] [place] [address], [phone], [facility] [place], [place] 09/29/2020 09:58:43 Td (adult), 2 Lf tetanus toxoid, preservative free, adsorbed 3 completed RICHIE ARVIZU PA-C [address] [place] [address], [phone], [facility] [place], [place] 01/16/2023 20:19:50 Influenza, split virus, quadrivalent, preservative 1 completed Not Available [facility] 07/08/2023 22:49:07 COVID-19, mRNA, LNP-S, PF, 100 mcg/0.5mL dose or 50 mcg/0.25mL dose 1 completed Not Available [facility] 07/08/2023 22:49:07 COVID-19, mRNA, LNP-S, PF, 30 mcg/0.3 mL dose 1 completed Not Available [facility] 07/08/2023 22:49:07 COVID-19, mRNA, LNP-S, PF, 30 mcg/0.3 mL dose 1 completed Not Available [facility] 07/08/2023 22:49:07 COVID-19, mRNA, LNP-S, PF, 100 mcg/0.5mL dose or 50 mcg/0.25mL dose 2 completed Not Available [facility] 07/08/2023 22:49:07 COVID-19, mRNA, LNP-S, bivalent, PF, 50 mcg/0.5 mL or 25mcg/0.25 mL dose 2 completed Not Available [facility] 07/08/2023 22:49:07 Influenza, MDCK, quadrivalent, PF 2 completed Not Available [facility] 07/08/2023 22:49:07 COVID-19, mRNA, LNP-S, bivalent, PF, 50 mcg/0.5 mL or 25mcg/0.25 mL dose 3 completed Not Available [facility] 07/08/2023 22:49:07 zoster recombinant 9 completed Not Available [facility] 07/08/2023 22:49:07 zoster recombinant 0 completed Not Available [facility] 07/08/2023 22:49:07 influenza, unspecified formulation [address] [facility] 12/04/2023 11:15:49 Past Encounters Encounter ID Performer Location Encounter Start Date Encounter Closed Date Diagnosis/Indication Diagnosis SNOMED-CT Code Diagnosis ICD10 Code Diagnosis Note [id number] Keagan Pizarro MD , [facility], OFFICE [address] [place] [id number] 01/02/2002 16:15:00 12/08/2008 02:02:29 [id number] [facility] LAB - [facility] [address] [facility] [place] [id number] 1 01/12/2002 10:00:00 12/08/2008 02:02:29 [id number] [facility] MAMMOGRAPH Y Technologi st Radiology , [facility] [address] [place] [id number] 07/16/2002 15:36:08 12/08/2008 02:02:29 [id number] Keagan Pizarro MD , [facility], OFFICE [address] [place] [id number] 1 07/16/2002 14:33:07 12/08/2008 02:02:29 [id number] Bienvenido De León MD , [facility], OFFICE [address] [place] [id number] 1 01/28/2003 09:50:32 12/08/2008 02:02:29 [id number] Keagan Pizarro MD , [facility], OFFICE [address] [place] [id number] 1 02/03/2003 15:41:47 12/08/2008 02:02:29 [id number] Keagan Pizarro MD , [facility], OFFICE [address] [place] [id number] 1 02/10/2003 15:35:10 12/08/2008 02:02:29 [id number] [facility] LAB - [facility] [address] [place] [id number] 1 02/12/2003 14:48:21 12/08/2008 02:02:29 [id number] Keagan Pizarro MD , [facility], OFFICE [address] [place] [id number] 1 02/12/2003 14:06:07 12/08/2008 02:02:29 [id number] Keagan Pizarro MD , [facility], OFFICE [address] [place] [id number] 1 02/22/2003 15:16:54 12/08/2008 02:02:29 [id number] [facility] - [facility] [address] [place] [id number] 04/01/2003 10:35:13 12/08/2008 02:02:29 [id number] Keagan Pizarro MD , [facility], OFFICE [address] [place] [id number] 1 04/08/2003 13:23:03 12/08/2008 02:02:29 [id number] Keagan Pizarro MD , [facility], OFFICE [address] [place] [id number] 1 05/11/2003 15:07:39 12/08/2008 02:02:29 [id number] MD RAKESH Beltrán, [facility], OFFICE [address] [place] [id number] 1 07/20/2003 11:38:54 12/08/2008 02:02:29 [id number] MD RAKESH Beltrán, [facility], OFFICE [address] [place] [id number] 1 07/18/2004 09:33:55 07/19/2004 08:27:42 [id number] Kassie TELLEZ , [facility], OFFICE [address] [place] [id number] 1 03/06/2005 16:03:19 03/07/2005 08:49:17 [id number] Keagan Pizarro MD , [facility], OFFICE [address] [place] [id number] 1 03/15/2005 14:32:25 03/16/2005 09:07:41 [id number] [facility] LAB - [facility] [address] [place] [id number] 1 03/19/2005 07:34:59 03/19/2005 08:40:56 [id number] Keagan Pizarro MD , [facility], OFFICE [address] [place] [id number] 1 09/27/2005 07:52:27 09/27/2005 15:44:53 [id number] [facility] LAB - [facility] [address] [place] [id number] 1 09/27/2005 08:38:51 09/27/2005 08:39:15 [id number] Bienvenido De León MD , [facility], OFFICE [address] [place] [id number] 1 10/12/2005 15:17:08 10/15/2005 09:40:57 [id number] Misha Crow i, PT Physical Therapy, [facility] [address] [place] [id number] 10/18/2005 08:43:07 10/18/2005 08:54:50 [id number] MD RAKESH Beltrán, [facility], OFF[address] [place] [id number] 1 10/18/2005 08:09:38 10/19/2005 08:47:23 [id number] Bienvenido De León MD , [facility], OFF[address] [place] [id number] 1 10/24/2005 14:06:32 10/25/2005 08:59:29 [id number] MD RAKESH Beltrán, [facility], [address] [place] [id number] 11/01/2005 09:11:05 11/01/2005 14:26:57 [id number] MD RAKESH Beltrán, [facility], OFF[address] [place] [id number] 1 11/21/2005 08:08:22 11/22/2005 08:14:56 [id number] MD RAKESH Beltrán, [facility], [address] [place] [id number] 11/30/2005 09:37:40 12/08/2008 02:02:29 [id number] [facility] RADIOLOGY Technologi Radiology , [facility] [address] [place] [id number] 1 06/07/2006 14:01:14 06/07/2006 14:39:52 [id number] MD RAKESH Ayers, [facility], OFFICE [address] [place] [id number] 1 06/07/2006 13:30:03 06/10/2006 09:27:04 [id number] MD RAKESH Beltrán, [facility], OFF[address] [place] [id number] 1 08/15/2006 13:26:16 08/16/2006 07:54:31 [id number] MD RAKESH Beltrán, [facility], OFFICE [address] [place] [id number] 1 02/04/2007 13:50:13 02/05/2007 07:47:14 [id number] [facility] LAB - [facility] [address] [place] [id number] 02/10/2007 09:54:48 02/10/2007 09:54:55 [id number] MD RAKESH Beltrán, [facility], OFFICE [address] [place] [id number] 1 09/24/2008 15:57:38 12/08/2008 02:02:29 [id number] MD RAKESH Beltrán, [facility], OFFICE [address] [place] [id number] 1 02/07/2009 16:29:54 02/08/2009 10:30:52 [id number] MD RAKESH Beltrán, [facility], OFFICE [address] [place] [id number] 1 10/03/2009 15:19:52 10/04/2009 10:02:44 [id number] MD RAKESH Beltrán, [facility], OFFICE [address] [place] [id number] 1 11/09/2009 09:12:37 11/09/2009 14:24:32 [id number] MD RAKESH Beltrán, [facility], OFF[address] [place] [id number] 1 12/19/2009 11:56:35 12/20/2009 07:58:17 [id number] MD RAKESH Beltrán, [facility], OFFICE [address] [place] [id number] 1 12/29/2009 16:02:05 12/30/2009 08:16:34 [id number] MD RAKESH Beltrán, [facility], [address] [place] [id number] 1 01/27/2010 11:30:57 01/27/2010 16:20:30 [id number] MD RAKESH Beltrán, [facility], OFF[address] [place] [id number] 1 02/28/2010 09:12:32 02/28/2010 11:12:51 [id number] MD RAKESH Beltrán, [facility], OFF[address] [place] [id number] 1 04/04/2010 11:27:24 04/04/2010 14:01:31 [id number] MD RAKESH Beltrán, [facility], OFF[address] [place] [id number] 1 04/19/2010 15:18:48 04/25/2010 09:27:09 [id number] MD RAKESH Beltrán, [facility], [address] [place] [id number] 1 09/14/2010 15:08:21 09/15/2010 07:52:06 [id number] MD RAKESH Montes, [facility], [address] [place] [id number] 1 12/04/2010 15:53:09 12/05/2010 10:51:17 [id number] MD RAKESH Beltrán, [facility], OFFICE [address] [place] [id number] 1 06/19/2011 07:34:11 06/19/2011 09:00:58 [id number] [facility] RADIOLOGY Technologi Radiology , [facility] [address] [place] [id number] 06/22/2011 11:31:50 06/22/2011 15:47:03 [id number] Keagan Pizarro MD , [facility], OFFICE [address] [place] [address] [place] [id number] 1 07/02/2011 07:42:30 07/03/2011 08:05:21 [id number] Keagan Pizarro MD , [facility], OFFICE [address] [place] [address] DR [place] [id number] 1 10/17/2012 08:49:57 10/22/2012 13:25:27 [id number] MD RAKESH Montes, [facility], OFFICE [address] [place] [address] [place] [id number] 1 12/05/2012 14:35:35 12/05/2012 16:46:23 [id number] MD RAKESH Beltrán, [facility], OFFICE [address] [place] [address] DR [place] [id number] 1 12/15/2012 15:53:34 12/15/2012 16:39:34 [id number] Keagan Pizarro MD , [facility] OFFICE [address] [place] [address] [place] [id number] 1 01/16/2013 13:59:53 01/16/2013 16:02:50 [id number] Keagan Pizarro MD , [facility], OFFICE [address] [place] [address] [place] [id number] 1 02/12/2013 16:39:33 02/12/2013 17:17:21 [id number] Balbir Leon III, MD , [facility], [address] [place] [id number] 1 06/25/2013 15:08:30 06/25/2013 15:52:39 [id number] Balbir Leon III, MD , [facility], [address] [place] [id number] 1 08/28/2013 09:21:27 08/31/2013 07:47:52 Male sterilization [id number] Balbir Leon III, MD , [facility], OFFICE [address] [place] [address] DR [place] [id number] 1 09/04/2013 14:45:23 09/07/2013 12:53:54 Male sterilization 670632308 Healing well at one week. [id number] MD RAKESH Beltrán, [facility], OFFICE [address] [place] [address] [address] [place] [id number] 1 10/30/2013 11:11:10 10/30/2013 11:37:46 Varicella vaccination 63410393 [id number] Keagan Pizarro MD , [facility], OFFICE [address] [place] [id number] 1 08/02/2014 15:13:34 08/03/2014 08:21:26 Adult health examination [id number] see Risk Assessment and Lifestyle Change Counseling section above Counseling 148834201 Influenza vaccine needed 2562070526 106 Administra tion of pneumococcal vaccine 66100217 Chest wall pain 850787746 [id number] Keagan Pizarro MD , [facility], OFFICE [address] [place] [id number] 1 08/12/2015 14:10:45 08/15/2015 09:06:01 Influenza vaccine needed 2513899311 106 Hand pain 95971568 [id number] Keagan Pizarro MD , [facility], OFFICE [address] [place] [id number] 1 09/06/2015 08:51:54 09/06/2015 09:34:17 Screening for disorder 120995521 Z72.89 Sciatica 17798754 M54.31 Hx of same. steroid, PT. Change oxycodone to tramadol for pain. Continue gabapentin [facility] [id number] Keagan Pizarro MD , [facility], OFFICE [address] [place] [id number] 1 09/20/2015 15:44:08 09/23/2015 09:33:07 Screening for disorder 974401477 Z72.89 Sciatica 26051380 M54.31 [id number] Keagan Pizarro MD , [facility], OFFICE [address] [place] [id number] 1 03/30/2016 13:55:47 04/02/2016 11:34:19 Adult health examination 301775946 Z00.00 see Risk Assessment and Lifestyle Change Counseling section above Counseling 754284703 Z71 .9 [id number] Keagan Pizarro MD , [facility], OFFICE [address] [place] [id number] 1 04/05/2017 14:51:14 04/05/2017 16:00:51 Adult health examination 971187425 Z00.00 see Risk Assessment and Lifestyle Change Counseling section above Counseling 589541372 Z71 .9 Insomnia 125530145 G47.0 0 Mass of skin 220037428 R 22.9 Family his tory of polyp of colon 540608320 Z83.71 Low back pain 433527099 M54.5 [id number] Keagan Pizarro MD , [facility], OFFICE [address] [place] [id number] 1 02/20/2018 13:10:47 02/20/2018 13:48:25 Lesion of lip 224586347 K13.0 [id number] MD RAKESH Beltrán, [facility], OFFICE [address] [place] [id number] 1 04/08/2018 10:53:24 04/08/2018 12:27:38 Adult health examination 728958319 Z00.00 see Risk Assessment and Lifestyle Change Counseling section above Counseling 819173245 Z71 .9 Depression screening 171 381103 Z13.89 depression screening tool administer ed, entered into emr, scored and discussed, time greater than 7.5 minutes Low back pain 329986162 M54.5 [id number] Ruth Peguero PA-C , [facility], OFFICE [address] [place] [id number] 1 06/05/2018 15:46:18 06/05/2018 17:00:42 Mass of left breast 9042266173 9751747 N63.20 Irregular firm lump 3 oclock position adjacent to areola and small firm nodule 7 oclock position just off areola of left breast. Unclear etiology. Previous mammogram in 2001- reports was normal, however thinks these are new lumps. US and Diagnostic mammogram if needed. Mass of soft tissue 4449 31098 R22.9 Just under right breast tissue- 3-4 cm. Suspect lipoma. Will US and f/u. [id number] Keagan Pizarro MD , [facility], OFFICE [address] [place] [id number] 1 04/09/2019 14:09:09 04/09/2019 17:15:39 Adult health examination 309258763 Z00.00 see Risk Assessment and Lifestyle Change Counseling section above Counseling 180836355 Z71 .9 Depression screening 171 895463 Z13.89 depression screening tool administer ed, entered into emr, scored and discussed, time greater than 7.5 minutes Mixed hyperlipidemia 267 438195 E78.2 [id number] Keagan Pizarro MD , [facility], OFFICE [address] [place] [id number] 1 08/07/2019 13:08:27 08/07/2019 13:59:25 Mixed hyperlipidemia 200558253 E78.2 Cholestero l is not at goal Continue to work on diet and exercise as discussed Active or passive immunization 096483634 Z23 [id number] Kaylee Das, BINHN, LDN, CDCES Nutrition -[facility] [address] [facility] [place] [id number] 08/28/2019 13:08:31 09/02/2019 09:25:08 Mixed hyperlipidemia 948186820 E78.2 [id number] Keagan Pizarro MD , [facility], OFFICE [address] [place] [address] 1 10/27/2019 13:43:25 10/27/2019 16:47:33 Mixed hyperlipidemia 387699107 E78.2 Cholestero l is at goal Low back pain 579969388 M54.5 Rosacea 253932626 L71.9 [id number] Carlos Prakash MD , [facility], OFFICE [address] [place] [id number] 1 01/12/2020 14:42:30 01/12/2020 15:38:30 Near syncope 771814780 R55 Likely dehydratio n/limited PO intake day of contribute d. ED workup negative except low phos. Hypophosphatemia 6044364 E83.39 Recheck today. Had changed his diet recently and had not had much to eat/drink day of episode. Discussed phosphorou s rich foods. Recheck level today. BMP, CBC and magnesium reviewed from ED. If still low, will do further workup. [id number] Mian Bourne MD , [facility], [address] [place] [address] 06/24/2020 14:59:14 06/28/2020 09:33:17 Chalazion of lower eyelid 289653128 H00.19 unclear if this is a small cyst, stye or cholestero l deposit - video not clear - referred to eye physicians for evaluation although this is non painful and most likely doesn't need any treatment. Enc. warm compresses prn. [id number] Carlos Prakash MD , [facility], OFFICE [address] [place] [address] 1 09/28/2020 08:47:14 09/28/2020 11:28:50 Adult health examination 644592275 Z00.00 Stable health. Continue healthy diet and regular exercise. Declines colonoscop y, will do stool cards. Counseling 283819345 Z71 .9 including cardivascu lar risk reduction counseling Depression screening 171 808196 Z13.89 0. Mood is stable. depression screening tool administer ed, entered into emr, scored and discussed, time greater than 7.5 minutes Screening for alcohol abuse 011170544 Z13.39 312. 1-2 drinks/day . Mixed hyperlipidemia 267 546067 E78.2 Screening for malignant neoplasm of colon 841073577 Z12.11 Insomnia 239470773 G47.0 0 Due in part to bilateral knee pain. Taking lorazepam nightly with good effect. Reviewed R/B/A of meds including effects of exterminator helper termite use. Will continue for now, but continue to re-evaluat e. Discussed CSRP contract given controlled med. Will complete tomorrow at visit. Low back pain 296767992 M54.5 Chronic on carisoprod ol daily. Discussed working towards decreasing dose. Left inguinal hernia 236 821118 K40.90 Suspect left inguinal hernia, will eval in the office and likely refer to Dr. Gao. [id number] Carlos Prakash MD , [facility], OFFICE [address] [place] [address] 09/29/2020 09:08:20 09/29/2020 10:41:39 Left inguinal hernia 026432210 K40.90 S/p repair 2010. ? Recurrent hernia. Will send to Dr. Gao for eval. Insomnia 940253776 G47.0 0 Discussed further with patient. He would like to try weaning off the lorazepam- will start with 1/2 tablet of lorazepam (0.5 mg) x 1 month, then wean further if tolerating well. He would like to try hydroxyzin e as alternativ e. Discussed cutting lorazepam in half first. Hold on hydroxyzin e until we wean lorazepam. Discussed R/B/A of his medication s and combo of sedating meds, as well as not combining with alcohol. Active or passive immunization 535883166 Z23 [id number] Carlos Prakash MD , [facility], OFFICE [address] [place] [address] 01/15/2022 14:44:44 01/19/2022 12:02:51 Adult health examination 495732112 Z00.00 Stable health. Continue healthy diet and regular exercise. Declines colonoscop y, will do stool cards. Counseling 819989063 Z71 .9 including cardivascu lar risk reduction counseling Depression screening 171 784766 Z13.31 0 depression screening tool administer ed, entered into emr, scored and discussed, time greater than 7.5 minutes Screening for alcohol abuse 530588044 Z13.39 02/27. 1-2 drinks/day . No hx of abuse. Mixed hyperlipidemia 267 386758 E78.2 Check f/u labs. Screening for malignant neoplasm of colon 538896362 Z12.11 Pain of ri ght hip joint 9322724078 01449 M25.551 x 6 months. No injury. Difficulty going up stairs only Lipoma of skin 398359765 D17.30 Mulitple lipomas- right upper back, left chest, right chest. Previously imaged and evaluated by Dr. Gao. Stable. Will monitor. Low back pain 542912871 M54.50 Uses carisoprod ol assisted. Discussed decreasing dose- encouraged to limit to 3 tabs a day as this is not meant to be a exterminator helper termite medication . Insomnia 226790130 G47.0 0 Off benzos and hydroxyzin e. Managing ok. [id number] Elda Ny . , [facility], OFFICE [address] [place] [address] 01/16/2023 13:49:29 01/17/2023 08:20:40 Adult health examination 126924590 Z00.00 Declines colonoscop y. Willing to do stool cards. [facility] todayHad [facility]rix [facility] at [facility] pdate fasting labs in 6mo to [facility] Depression screening 171 Z13.31 depression screening tool administer ed, 05/14 Screening for alcohol abuse 086987258 Z13.39 Alcohol use screening tool administer ed, 02/27 Mixed hyperlipidemia 267 302435 E78.2 Cholestero l is at [facility] ue to work on diet and exercise as discussed Screening for malignant neoplasm of colon 040273228 Z12.11 Declines colonoscop y. Willing to do stool cards. Provided today Active or passive immunization 006371262 Z23 Screening for malignant neoplasm of prostate 949744302 Z12.5 Urinating 2-3 times/nigh tDRE w/ very minimal symmetric enlargemen t, no nodulesR/B /A PSA discussed, will obtain Inattention 17958175 R41 .840 Attention/ focus issues, impatient, thinks whole lifePositi ve screen from magazineWo uld like to look into furtherRet ired nowRefer to Isiah Arriaga [id number] Elda Ny . , [facility], [address] [place] [address] 06/12/2023 09:58:14 06/12/2023 13:36:49 Pain of right hip joint 6930853616 92649 M25.551 Worsening Since 01/2023[facility] xrays- Mild to mod OA, subchondra l sclerosis, osteophyte s, records requestedJ une 29 had cortisone injection [facility] (improveme nt x2 weeks then worse again)Napr oxen BID, Salon pasRefer for PTWould like second opinion from sports med, will schedule with Dr. Newman [id number] Carlos Prakash MD , [facility], OFFICE [address] [place] [address] 07/01/2023 09:15:39 07/01/2023 14:10:48 Osteoarthritis of right hip joint 2013651069 49634 M16.11 Mild-Mod per [facility] consult note on imaging. Minimal relief with cortisone injection 05/14/23. Will trial meloxicam. Discussed Tylenol PRN in between. Plans to see [facility] and starts PT this week. Low back pain 211554673 M54.50 Refilled Rx. [id number] Satish Newman MD Sports Medicine, [facility] [address] [facility] [place] [address] 07/29/2023 14:18:34 07/29/2023 15:49:36 Pain of hip region 13781084 M25.551 Topher is a 68-year-ol d male with right hip pain due to underlying osteoarthr itis. His x-rays in my opinion demonstrat e a small Cam lesion as well as mild to moderate degenerati ve changes. I reviewed this diagnosis with him today as well as discussing further options for treatment. We discussed physical therapy and NSAIDs, corticoste roid injections , and surgery. With his ongoing symptoms despite most conservati ve management I feel surgical consultati on would be appropriat e. He is at an age when total hip arthroplas ty would be appropriat e and had only short-term relief of symptoms with an intra-chinyere cular injection. Topher had multiple questions regarding possible arthroscop ic management of his hip osteoarthr itis which I advised is unlikely to be beneficial . He does have an upcoming appointmen t with Dr. Henry in September which she will plan to keep. Until then he will continue use his meloxicam as needed. He will plan to follow up with me only as needed if surgery is not anticipate d in the near future. Office notes from [facility] were reviewed as part of this visit. [id number] Carlos Prakash MD , [facility], OFFICE [address] [place] [address] 07/29/2023 11:31:27 07/30/2023 08:36:19 Low back pain 233272754 M54.50 retirement use. Will put on CSRP. Goal would be to taper dosing. Discussed CSRP program. Contract signed. F/u Q 6 months. [id number] Sintia Kwok MD , [facility], OFFICE [address] [place] [address] 11/08/2023 16:04:26 11/12/2023 11:18:08 Screening for disorder 570569199 Z13.6 Abdominal wall pain 1620 25778 R10.9 ? related to strain with new HEP. However, with rapid unexplaine d progressio n R hip arthritis, would be appropriat e to assess for additional metabolic or other causes if not improving rapidly. Last BMP, PSA 01/2023 and no recent cbc. [id number] Abiel Muñoz MD , [facility], OFFICE [address] [place] [address] 12/04/2023 10:38:48 12/04/2023 15:34:06 Pain of right hip joint 7607619666 56798 M25.551 as above Osteoarthr itis of right hip joint 0911584960 06759 M16.11 as above Pre-surger y evaluation 833740500 Z01.818 - pt presenting for pre-op physical and EKG- EKG showing sinus bradycardi a, first degree AV block, right bundle branch block, left axis deviation; all known/stab le compared to previous EKGs (last done 09/2022). no acute ischemic changes. Normal stress test 09/2022.- Revised Cardiac Risk Index (RCRI): score 0, class I, 0.4% risk/low risk for cardiac complicati ons during scheduled procedure. - labs ordered per ortho protocol, surgeon cc'd for results 1. High-risk type of surgery (examples include vascular surgery and any open intraperit corado or intrathora cic procedures )2. History of ischemic heart disease (history of myocardial infarction or a positive exercise test, current complaint of chest pain considered to be secondary to myocardial ischemia, use of nitrate therapy, or ECG with pathologic al Q waves; do not count prior coronary revascular ization procedure unless one of the other criteria for ischemic heart disease is present)3. History of heart failure4. History of cerebrovas cular disease5. Diabetes mellitus requiring treatment with insulin6. Preoperati ve serum creatinine >2.0 mg/dL (177 micromol/L ) 0 class I 0.4% risk1 class II 0.9%2 class III 6.6%3-6 class III 11% Prediabetes 635366463 R7 3.03 check a1c with labs Mixed hyperlipidemia 267 550939 E78.2 fasting today, check updated lipid panel with labsf/u with PCP Low back pain 690664911 M54.50 continues on carisoprod ol with relief Rosacea 994371187 L71.9 continues topical metronidaz ole with relief Steatotic liver disease 045263493 K76.0 noted on problem list, LFTs added to labsf/u with PCP Left flank pain 61130584 9 R10.9 recent ER visit for L flank pain, kidney stone vs pulled musclesinc e resolved completely will call as needed [id number] Bienvenido Leonard MD FP, [facility], [address] [place] [address] 01/28/2024 11:59:47 01/28/2024 17:07:31 Otalgia of left ear 8812386387 H92.02 With pain in left mastoid / submandibu lar area and significan t odynophagi a. Pt seems well, nontoxic. No sign of AOM or other abnormalit y. Will refer to ENT for further eval. [id number] Ariana Murerll MD , [facility], OFFICE [address] [place] [address] 04/10/2024 14:59:11 04/10/2024 16:23:56 Adult health examination 453752777 Z00.00 Given recent verbal diagnosis of throat cancer, scheduled biopsy on Saturday 04/14 for further evaluation . Management plan to be decided pending results. Associated pain can be alleviated with supportive measures such as warm/ice packs along jaw and Tylenol prior to biopsy. Long-term current use of drug therapy 406630670 Z79.899 CSRP discussed during visit. Screening for malignant neoplasm of colon 174154688 Z12.11 -declines colonoscop y [id number] Ariana Murrell MD , [facility], OFFICE [address] [place] [phone] 09/28/2024 14:23:15 09/29/2024 08:01:06 Chronic pain 27312134 R52 -CSRP contract signed today-stab le on carisoprod ol Long-term current use of opiate analgesic drug 6172633008 15780 Z79.891 Active or passive immunization 879405225 Z23 Flu 24 - had gotten alreadyPCV 20 - reminded Screening for malignant neoplasm of colon 709642128 Z12.11 -declines colonoscop y, received stool kit 04/10/24 Long-term current use of drug therapy 270105928 Z79.899 CSRP discussed during visit. 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 completed chemo and radiation, overall feeling great-cont inuing care with oncology team and speech therapy for lymphedema in his neck Low back pain 811144478 M54.50 [id number] Abiel Muñoz MD , [facility], [address] [place] [address] 04/16/2025 15:28:14 04/16/2025 16:29:51 Adult health examination 131634846 Z00.00 Depression screening 171 770757 Z13.31 depression screening tool administer ed Screening for alcohol abuse 533380447 Z13.39 Alcohol use screening tool administer ed Screening for malignant neoplasm of prostate 120309623 Z12.5 If you have a prostate, the U.S. Preventive Services Task Force advises not to make a PSA test a part of the standard exam for ages 55-69. Instead they recommend the uncertaint ies about the test be discussed and ordered only if a patient still wants it. Over their lifetimes as many as 50% or more of persons with a prostate will develop prostate cancer but only 2% of them will of prostate cancer. For those who chose to be screened for prostate cancer, if 1000 are screened with a PSA test over a 15 year period there might be 1-2 deaths prevented however 235 persons will have a biopsy with risk of infection, bleeding and pain, 100 will have their prostate removed by surgery or radiation treatments and 60-70 of those will suffer incontinen ce or impotence. There is also the risk of anesthesia or radiation complicati ons. For those over 70, prostate cancer screening offered no benefit and risked pain, worry, expense and possibly shorter life expectancy . Test was ordered. Screening for malignant neoplasm of colon 698083601 Z12.11 You were given a stool kit today for Colorectal Cancer screening. Please review the instructio ns and return the kit to our office within 7 days. The kits so check the date before submitting the sample. Contact our office with any questions or concerns. Immunization due 4540630 08 Z23 Flu 24 - had gotten alreadyPCV 20 - reminded to get at pharmacy History of malignant neoplasm of pharynx 1967602884 9107 Z85.819 -in remission, ongoing monitoring and f/u every 3-6 months Lipoma of back 051175232 D17.1 -referral placed to general surgery to discuss removal Poor concentration 96868 005 R41.840 -? ADHD, discussed how an ADHD diagnosis would change things at this point in his life, discussed medication starts not always safe >65, can consider evaluation to review how symptoms impacting life and if there are other coping skills he could rely on to manage symptoms Heartburn 53567860 R12 -currently managing with famotidine and tums Chronic pr imary low back pain 1779524067 7100 M54.59 G89.29 -CSRP-stab le on carisoprod ol Health Concerns Section Related Observation LastModified by Organization Detai ls LastModified Time None Recorded Concern Status LastModified by Organization Details LastModified Time None Recorded Advance Directives Directive None Recorded Payers Insurance Date Sequence Insurance Name Policy Number Policy Roca Covered Member ID Roca Member ID Guarantor Name 09/21/2024 DALTON Topher Allan 09/21/2024 1 [facility]INDEMNITY[facility] Topher Allan [id number] Topher Allan 12/04/2010 1 [facility] [id number] Grace Sanjana [id number] Topher Allan 06/02/2025 1 C[employer] (INDEMNITY) [id number] Topher Allan [id number] Topher Allan 10/31/2005 1 [facility] [id number] Grace Sanjana [id number] Topher Allan Notes Date Note Type Note Provider Name and Address Organization Details Recorded Time 4 text/html 12/04/23- pre ophere w/ R total hip replacement surgery scheduled 12/25/23w/ Dr. Wili Mendoza at ortho [facility] fax #[phone] labs/EKGdue to OA - had both knees replaced as wellchecking sugars at home for prediabetes -80s-110s range, not currently on medicationlow back pain - managed with carisoprodol, has seen specialistsrosacea - topical abx helpfulmultivitamins recently in ER for flank pain, since completely resolved, pulled muscle vs kidney stone (pt feels it was muscle related) GEOFF Bui [address] [place] [address], [phone], [facility] [place], [place] 12/04/2023 12:34:30 4 text/html here with his due to left ear pain and pain with swallowing on left side. Bothering him for 3 weeks. Took two tylenol twice today. Using debrox 3-4x/day for the past two days, which helps some. It feels like there's water in the L ear. Denies fever, nasal congestion, sinus pain/pressure, cough. Ayaz Hussein PA-C [address] [place] [address], [phone], [facility] [place], [place] 01/28/2024 12:33:07 4 text/html Verbal throat cancer diagnosis 7 days ago. Biopsy on Saturday. History: mid-December, jaw, throat and ear pain (incidentally when the opioids from hip surgery ceased). [facility] provider sent referral to ENT. Currently, pain is not supported. Using cough drops with lidocaine for minimal relief. Lidocaine wash that was prescribed has been ineffective. Dec 2023 - R sided hip replacement. Has been healing well. Mobility intact. Diet overall good. Recumbent bike 4 miles every day. Has a full gym at the house. Sleep has been okay, given recent health changes. Takes ZQuil melatonin, 1 gummy, nightly. Also 50mg Benadryl every night for sleep. JOE LAUREANO NP [address] [place], [phone], [facility] [place], [place] 04/10/2024 16:17:47 4 text/html 09/28/24 -he is cancer free! doing well, still engaged in care with oncology team and speech therapy Verbal throat cancer diagnosis 7 days ago. Biopsy on Saturday. History: mid-December, jaw, throat and ear pain (incidentally when the opioids from hip surgery ceased). [facility] provider sent referral to ENT. Currently, pain is not supported. Using cough drops with lidocaine for minimal relief. Lidocaine wash that was prescribed has been ineffective. Dec 2023 - R sided hip replacement. Has been healing well. Mobility intact. Diet overall good. Recumbent bike 4 miles every day. Has a full gym at the house. Sleep has been okay, given recent health changes. Takes ZQuil melatonin, 1 gummy, nightly. Also 50mg Benadryl every night for sleep. JOE LAUREANO NP [address] [place], [phone], [facility] [place], [place] 09/28/2024 15:21:15 5 text/html Risk Assessment AdultReported bypatient.Coronary Artery Disease Risk Assesment:No Family history of coronary artery disease; No personal history of diabetes; No history of peripheral vascular disease, AAA, or carotid disease; No personal history of coronary artery disease Breast Cancer Risk Assessment:No family history of breast cancer; No history of breast cancer or dcis Colon Cancer Risk:No personal history of colon cancer or polyps; No family history of colon polyps or cancer Lung Cancer Risk Assessment:Never smoked; No asbestos exposure Fracture Risk Assessment:No unexplained fracture Cognitive/Behavioral Risk Assessment:No personal history of mental illness; No family history of mental illness 04/16/25[facility] Visit -in remission from cancer, pharynx, has lymphedema and 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 ADHD, thinks he has always had it, gets easily distracted while trying to complete tasks JOE LAUREANO NP [address] [place] [address], [place], [phone], [facility] 04/16/2025 16:32:59
--- OUTSIDE RECORDS SUMMARY | 2025-06-04 08:36 | XMS_ITS | Clinical Summary ---
Author Organization [facility] Address [address] [place] [address] Care Team Providers Care Mail Carrier Name Role Phone Unavailable Primary Care Provider Unavailabl e Social History Tobacco Use Types Packs/Day Years Used Date Smoking Tobacco: Never Assessed Sex and Gender Information Value Date Recorded Sex Assigned at Not on file Gender Identity Not on file Sexual Orientation Not on file Job Start Date Occupation Industry Not on file Not on file Not on file Plan of Treatment Health Maintenance Due Date Last Done Comments Hepatitis C Screening 1957 Depression Screening 1969 Preventative Health Evaluation 1975 DTap / Tdap / Td (1 - Tdap) 1976 Colon Cancer Screening (Colonoscopy) 2002 Shingrix-Zoster Vaccine (1 o f 2) 2007 Fall Risk Assessment 2022 Pneumococcal Vaccine (1 of 1 - PCV) 2022 COVID-19 Vaccine (3 - 2023-2 5 season) 2024 03/04/2021, 02/11/2021 Influenza Vaccine (#1) 2025 RSV Adult > 60+ Yrs or (1 - 1-dose 75+ series) 2032 Hepatitis B Vaccines Aged Out No long er eligible based on patient's age to complete this topic RSV Ped < 20 months Aged Out No longe r eligible based on patient's age to complete this topic
--- OUTSIDE RECORDS SUMMARY | 2025-06-04 08:36 | XMS_ITS | Encounter Summary ---
Author Organization [facility] Address [address] [facility] [address] [place] [address] Phone Care Team Providers Care [employer] Name Role Phone Keagan Pizarro MD Primary Care Provider [phone] Yanet Keane PA-C Primary Care Provider [phone] Encounter Details Date Type Department Care Team (Late st Contact Info) Description 06/04/2022 Procedure Pass [place] Admitting Dept - Virtual Department [address] [place] [address] Social History Tobacco Use Types Packs/Day Years Used Date Smoking Tobacco: Former Cigarettes 0.5 10 1 987 - 1996 Smokeless Tobacco: Never Alcohol Use Standard Drinks/Week Comments Not Currently 0 (1 standard drink = 0.6 oz pur e alcohol) Sex and Gender Information Value Date Recorded Sex Assigned at Male 12/31/2019 6:51 PM EST Legal Sex Male 9:53 PM EDT Gender Identity Male 12/31/2019 6:51 PM EST Sexual Orientation Not on file documented as of this encounter Plan of Treatment Not on file documented as of this encounter Visit Diagnoses Not on filedocumented in this encounter Care Teams [employer] Relationship Specialty Start Date End Date Keagan Pizarro MD [address] [place] [phone] [email or web address] PCP - General Family Medicine 05/23/22 05/19/23 Yanet Keane PA-C [address] [place] [id number] [email or web address] PCP - General Physician Para Machine Operator 05/20/23 documented as of this encounter Additional Source Comments The information contained in this document represents components of the legal health record. It is not the complete legal health record.[facility]
[2025-06-04 10:32] LABS: Hemoglobin A1C 125.1630 umol/L; Total Hemoglobin (HGBA1C) 3605.0538 umol/L
[2025-06-04 10:57] LABS: Prostate Specific Antigen 2.21 ng/mL (<0.05-4.0)
[2025-06-04 11:04] LABS: Alanine Aminotransferase 19 U/L (0-40); Albumin Level 3.9 g/dL (3.5-5.0); Alkaline Phosphatase 54 U/L (39-117); Anion Gap 12 (12-20); Aspartate Amino Transferase 21 U/L (5-37); Blood Urea Nitrogen 22 mg/dL (9-16); Calcium 8.9 mg/dL (8.4-10.2); Carbon Dioxide 28 mmol/L (22-29); Chloride 105 mmol/L (96-108); Cholesterol 206 mg/dL (<200); Estimated Glomerular Filt Rate > 60; HDL Cholesterol 55 mg/dL (>40); Potassium 3.6 mmol/L (3.3-5.1); Sodium 141 mmol/L (135-145); Total Protein 6.5 g/dL (6.5-8.0); Triglycerides 160 mg/dL (<150)
== END 2025-06-04 08:34 | disposition home or self-care (01) ==
LOC: HO.HMGCLDS 08:33
PROVIDERS: PCP Nurse Practitioner Primary Care; Visit Provider Nurse Practitioner Primary Care
DX: Z00.00 Encounter for general adult medical examination without abnormal findings (principal); Z12.5 Encounter for screening for malignant neoplasm of prostate; Z13.1 Encounter for screening for diabetes mellitus; Z13.220 Encounter for screening for lipoid disorders
CPT/HCPCS: 36415; 80053; 80061; 83036; 84153

== ENCOUNTER 2025-10-18 21:46 | Emergency (ER) | payer OTHER, SELFPAY ==
--- OUTSIDE RECORDS SUMMARY | 2025-09-28 13:00 | XMS_ITS | Encounter Summary ---
Author Organization [facility] Address [address] [place] [address] Care Team Providers Care [employer] Business Manager Name Role Phone Yanet Keane PA-C Primary Care Provider + [phone] Balbir Oneal MD Unavailable [facility] Hermelinda Franco RN Unavailable [phone] Mariann Horne PA-C Unavailable Aravind Abel MD Unavailable Migel Davis MD Unavailable Reason for Referral * Rehabilitation (Routine) - Pending Review Specialty Diagnoses / Procedures Referred By Leon tinajero Referred To Contact Rehabilitation Diagnoses Head and neck cancer (HCC) Balbir Oneal MD [address] [place] [address] Phone: tel: fax: [address] [phone] Phone: tel: fax: Referral ID Status Reason Start Date Expiration Date Visits Requested Visits Authorized [id number] Pending Review Support Services 09/29/2026 99 99 Question Answer Is this referral for an initial evaluation or additional visits? Initial evaulation Is this related to a Neurological Condition? No Comments Clicking sensation and tension in neck, suspect osteoarthritic in nature. History of head and neck radiation with resultant musculature fibrosis, albeit mild Reason for Visit * Auth/Cert (Routine) Specialty Diagnoses / Procedures Referred By Leon t Referred To Contact Diagnoses Malignant neoplasm of base of tongue Procedures CHG NTSTY MODUL RADTHX PLN DOSE-VOL HISTOS CHG INTENSITY MODULATED RADIATION TX DLVR COMPLEX RI RADIATION TX DELIVERY IMRT CHG CT GUIDANCE RADIATION THERAPY FLDS PLACEMENT RI STEREOSCOPIC X-RAY GUIDANCE CHG SPECIAL TREATMENT PROCEDURE CHG THERAPEUTIC RADIOLOGY TX PLANNING COMPLEX CHG CONTINUING MEDICAL PHYSICS CONSLTJ RI WK CHG RADIATION TREATMENT MANAGEMENT 5 TREATMENTS CHG TX DEVICES DESIGN & CONSTRUCTION COMPLEX CHG MLC IMRT DESIGN & CONSTRUCTION PER IMRT PLAN CHG BASIC RADIATION DOSIMETRY CALCULATION APPROVAL REF #[id number] 04/21/24 - 10/18/24 Referral ID Status Reason Start Date Expiration Date Visits Re quested Visits Authorized [id number] 1 1 Encounter Details Date Type Department Care Team (Latest Contact Info) Description 09/28/2025 1:00 PM EST Hospital Encounter [facility] Radiation Oncology [address] [place] [address] [phone] Balbir Oneal MD [address] [place] [address] [phone] Head and neck cancer (HCC) (Primary Dx) Social History Tobacco Use Types Packs/Day Years Used Date Smoking Tobacco: Never Smokeless Tobacco: Never Alcohol Use Standard Drinks/Week Comments Yes 3 (1 standard drink = 0.6 oz pur e alcohol) once a day occassionally AUDIT-C Answer Date Recorded Q1: How often do you have a drink containing alc ohol? 2-4 times a month 04/03/2024 Q2: How many drinks containi ng alcohol do you have on a typical day when you are drinking? 1 or 2 04/03/2024 Q3: How often do you have si x or more drinks on one occasion? Never 04/03/2024 Overall Financial Resource Strain (CARDIA) Answe r Date Recorded How hard is it for you to pa y for the very basics like food, housing, medical care, and heating? Not hard at all 04/17/2024 Sex and Gender Information Value Date Recorded Sex Assigned at Male 04/07/2024 12:05 PM EDT Legal Sex Male 12:50 PM EST Gender Identity Male 04/07/2024 12:05 PM EDT Sexual Orientation Heterosexual (straight) 04/07 12:05 PM EDT documented as of this encounter Last Filed Vital Signs Vital Sign Reading Time Taken Comments Blood Pressure 117/68 09/28/2025 1:14 PM EST Pulse 52 09/28/2025 1:14 PM EST Temperature 34.8 C (94.6 F) 09/28/2025 1:14 PM EST Respiratory Rate 16 09/28/2025 1:14 PM EST Oxygen Saturation 99% 09/28/2025 1:14 PM EST Inhaled Oxygen Concentration - - Weight 90.2 kg (198 lb 12.8 oz) 09/28/2025 1:14 PM EST Height - - Body Mass Index 27.73 08/11/2025 2:04 PM EDT documented in this encounter Progress Notes * Balbir Oneal MD - 09/28/2025 1:00 PM EST Images from the original note were not included. Department of Radiation Oncology [place] Name: Topher Allan : 1955 Radiation Oncology Follow Up Identification: Mr. 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 Interval History: Has continued follow-up with Dr. Abbasi, saw last 08/11/2025 Presents today for problem visit secondary to several weeks of a clicking sensation in the right posterior neck. This is associated with a sensation of tension release, but denies any associated pain Physical Examination: BP 117/68 (BP Location: Left arm, Patient Position: Sitting, Cuff Size: Medium (Standard)) Pulse (!) 52 Temp (!) 94.6 ??F (34.8 ??C) (Tympanic) Resp 16 Wt 90.2 kg (198 lb 12.8 oz) SpO2 99% BMI 27.73 kg/m?? ECOG Score: 0 General: Well-appearing male in no apparent distress. HEENT: Anicteric sclera. Pupils equally round and reactive to light and accommodation. Extra-ocularmovements intact. Respiratory: Clear, unlabored breathing. Abdomen: Non-distended. Extremities: No lower extremity edema. Musculoskeletal: Moves all extremities without difficulty. Clicking sound and abrupt tension release, seemingly emanating from the mid neck, just right of midline. No palpable mass, cord of tissue, or other focal finding in this location Neurologic: Cranial nerves II through XII grossly intact. 5/5 symmetric strength of the bilateral upper and lower extremities. No dysarthria or dysmetria. Dermatologic: No skin rashes, or jaundice. Lymphatics: No palpable cervical or supraclavicular adenopathy bilaterally. Stable mild bilateral cervical fibrosis IMPRESSION: 70 y.o. 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 status post chemoradiation PLAN BY PROBLEM: Left base of tongue cancer No evidence of disease by exam, now a year and 3 months from completion of therapy Return to clinic as scheduled in late November Neck tension Reviewed prior imaging with [facility], noting thinning of the cervical disc spaces, anterior osteophytes, and some readiness of intervertebral joints at several levels in the cervical spine Given this, suspect that his symptoms reflect a combination of pre-existing osteoarthritis coupled with likely RT related fibrosis of the neck and upper back musculature Given that this is asymptomatic, would not recommend medication or intensive interventions. Discussed options of observation versus PT. Given his excellent functional status, we agreed to proceed with PT referral Jack Oneal MD CC: Yanet Keane PA-C This note was created using voice recognition software. Please excuse any typographical errors or word substitutions. Medical decision making: Level 3 (category 1 or category 2) Category 2 [x]Assessment requiring an independent historian documented in this encounter Plan of Treatment Scheduled Referrals Name Type Priority Associated Diagnoses Orde r Schedule Amb Referral to Therapy Services (PT or OT) Outpatient Referral Routine Head and neck cancer (HCC) Ordered: 09/28/2025 documented as of this encounter Goals Goal Patient Goal Type Associated Problems Recent Progress Patient-Stated? Author ST LTG 1 Speech Therapy No Ela Ordonez, ARIADNE-BACKUP OPERATOR Note: The patient will present with a functional swallow mechanism to tolerate a least restrictive diet during radiation therapy with no concerns for aspiration in [address]G 1 Speech Therapy No Ela Ordonez CCC-BACKUP OPERATOR Note: The patient will complete 10/10 oral and pharyngeal strengthening exercises independently with 100% accuracy in 3/[address] STG 2 Speech Therapy No Ela Ordonez CCC-BACKUP OPERATOR Note: The patient will tolerate a least restrictive diet without clinical indicators of penetration or aspiration to maintain nutrition via oral intake only. documented as of this encounter Visit Diagnoses Diagnosis Head and neck cancer (HCC)- Primary documented in this encounter Care Teams [employer] Business Manager Relationship Specialty Start Date End Date Yanet Keane PA-C [address] [place] [phone] PCP - General 04/14/24 Balbir Oneal MD [address] [place] [address] Radiation Oncology 04/15/24 [facility] Hermelinda Franco, RN [address] [place] [address] Oncology Nurse Navigator 04/16/24 Mariann Horne PA-C [address] [place] [phone] Physician Quote Clerk Surgery, Cardiac 08/07/24 Aravind Abel MD [address] [place] [phone] Surgery, Cardiac 08/07/24 Migel Davis MD [address] [place] [phone] Primary Video Game Producer Cardiovascular Disease 09/29/24 documented as of this encounter
--- NOTE | ~2025-10-18 | XR_ITS ---
CLINICAL HISTORY: swollen 4 view right elbow Comparison: None provided Findings: No acute fractures. Normal alignment. 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 Moderate soft tissue swelling. No joint effusion. No radiopaque foreign body. IMPRESSION: 1. No acute findings. Mild DJD. Moderate soft tissue swelling. This document has been electronically signed by: Ariadna Jc MD on 10/18/2025 23:09:58
--- OUTSIDE RECORDS SUMMARY | 2025-10-18 13:30 | XMS_ITS | Encounter Summary ---
Author Organization [facility] Address [address] [place] [address] Care Team Providers Care Wad Lubricator Name Role Phone Yanet Keane PA-C Primary Care Provider + [phone] Balbir Oneal MD Unavailable [phone] [facility] Hermelinda Franco RN Unavailable Mariann Horne PA-C Unavailable [phone] Aravind Abel MD Unavailable [phone] Migel Davis MD Unavailable Encounter Details Date Type Department Care Team (Late st Contact Info) Description 10/18/2025 1:30 PM EST Office Visit [facility] [place] [facility] at [address] [phone] Marvel Cordero MD [address] [place] [address] 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); Sensory peripheral neuropathy; Prescription refill Social History Tobacco Use Types Packs/Day Years [...] Sign Reading Time Taken Comments Blood Pressure 122/73 10/18/2025 1:14 PM EST Pulse 63 10/18/2025 1:14 PM EST Temperature 35.9 C (96.7 F) 10/18/2025 1:14 PM EST Respiratory Rate 20 10/18/2025 1:14 PM EST Oxygen Saturation 97% 10/18/2025 1:14 PM EST Inhaled Oxygen Concentration - - Weight 92 kg (202 lb 14.4 oz) 10/18/2025 1:14 PM EST Height - - Body Mass Index 28.3 08/11/2025 2:04 PM EDT documented in this encounter Progress Notes * Marvel Cordero MD - 10/18/2025 1:30 PM EST Medical Oncology/Hematology Progress Note Healthcare Team: Yanet Keane PA-C Subjective: Date of visit is: 10/18/2025 Topher Allan is a 70 y.o. male who presents here today for a follow- up visit regarding squamous cell carcinoma of head and neck. ONCOLOGY HISTORY: He is a former patient of Dr. Adams. He last saw him on June 08, 2024. He is a former smoker who developed worsening pain and difficulty swallowing with left-sided otalgia following hip replacement surgery on December 25, 2023. On March 13, 2024, CT neck revealed a 2 cm, left level 2A cervical lymphadenopathy and left base oftongue lesion. On April 14, 2024, ENT evaluation revealed a left base of tongue lesion. 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 He received weekly cisplatin and concurrent radiation therapy, cycle 1 on May 04, 2024. On June 15, 2024, he received week #7 of cisplatin. He completed RT on June 22, 2024. Verbal consent obtained from the patient to record the visit for documentation purposes, with an understanding that the recording will be securely processed via software for note generation, revisionand inclusion in the medical record. Interim History: He is here with his s.o. 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 He has gained weight. His appetite and stamina are good. He denies dysphagia, cough, shortness of breath, or new head and neck symptoms. Food taste is nearly normal with minor exceptions. He continues to experience persistent sensory peripheral neuropathy in the left distal foot, described as intermittent, sharp, excruciating pain localized to the big toe and across the foot, typically occurring at night and resolving quickly. Symptoms have been stable for six months without improvement or progression. He applies cocoa butter twice daily and takes L-acetylcarnitine, alpha lipoic acid, and magnesium. Gabapentin is taken nightly, previously at higher doses, and he is considering discontinuing it to assess for symptom change. There is no involvement of the hands. Neuropathy does not interfere with sleep. He has occasional mild heartburn, a new symptom since cancer treatment, managed with rare use of wwaj-wiy-kokgiam remedies and dietary modifications. He previously used pantoprazole but now relies onas-needed OTC options. He denies nausea, constipation, diarrhea, or abdominal pain. He reports stable low back pain, managed with carisoprodol. There is new onset cervical crepitus without pain, for which he has a physical therapy appointment scheduled. He denies dizziness, lightheadedness, or headaches. He is scheduled for a dental visit next week for a day guard due to bruxism. Thyroid nodules remain under surveillance, previously biopsied and benign. He is up to date on immunizations, including recent influenza and COVID vaccines. He experienced a cold sore lasting one week, attributed to psychosocial stress related to his mother's declining health. reports no pain Pain: 0 Assessment of psychosocial status: no depression or anxiety Upon further review of records: On September 28, 2025, he was seen by radiation oncology. No evidence of disease by exam now a year and 3 months from completion of therapy. Return to clinic in late November. Neck tension, suspect that his symptoms reflect combination of pre-existing osteoarthritis coupled with likely RT related fibrosis of neck and upper back musculature. Did not recommend medication or intensive interventions but discussed options of observation versus PT. He was referred to PT. On August 11, 2025, he was seen by ENT. Doing really well. No evidence of disease on exam. 2 thyroid biopsies were benign. Recommended follow-up thyroid ultrasound in 1 year. Recommended annual thyroid lab testing. Recommended clinical surveillance. REVIEW OF SYSTEMS: Review of Systems Gastrointestinal: Negative for abdominal pain. GERD, stable Musculoskeletal: Positive for back pain (chronic). Negative for neck pain. The remainder of the 12- point ROS are within normal limits with the exceptions as noted in the HPI. Medications Outpatient Medications Marked as Taking for the 10/18/25 encounter (Office Visit) with Marvel Cordero MD: Acetylcarn-Alpha Lipoic Acid 400-200 MG Cap, Take 400 mg by mouth 2 times a day., Disp: , Rfl: amoxicillin (AMOXIL) 500 MG capsule, Prior to dental cleaning, Disp: , Rfl: carisoprodol (SOMA) 350 MG tablet, TAKE 1 TABLET BY MOUTH FOUR TIMES A DAY NEEDED, Disp: , Rfl: gabapentin (NEURONTIN) 300 MG capsule, TAKE 1 CAPSULE (300 MG TOTAL) BY MOUTH DAILY NEEDED FOR PAIN., Disp: 30 capsule, Rfl: 1 magnesium oxide 250 MG Tab tablet, Take 1 tablet (250 mg total) by mouth., Disp: , Rfl: metroNIDAZOLE (METROGEL) 0.75 % topical gel, Apply topically 2 (two) times a day., Disp: , Rfl: vitamin B complex (b complex vitamins) capsule, Take 1 capsule by mouth daily., Disp: , Rfl: [DISCONTINUED] gabapentin (NEURONTIN) 300 MG capsule, TAKE 1 CAPSULE BY MOUTH THREE TIMES A DAY, Disp: 60 capsule, Rfl: 3 Objective: Wt Readings from Last 2 Encounters: 10/18/25 92 kg (202 lb 14.4 oz) 09/28/25 90.2 kg (198 lb 12.8 oz) Physical Exam Vitals: 12/01/25 1314 BP: 122/73 BP Location: Right arm Pulse: 63 Resp: 20 Temp: 96.7 ??F (35.9 ??C) TempSrc: Tympanic SpO2: 97% Weight: 92 kg (202 lb 14.4 oz) Performance status: ECOG (0) Fully active, able to carry on all predisease performance without restriction Physical Exam Constitutional: General: He is not in acute distress. Appearance: He is not ill-appearing, toxic-appearing or diaphoretic. HENT: Head: Normocephalic and atraumatic. Mouth/Throat: Mouth: Mucous membranes are dry. Pharynx: Oropharynx is clear. No oropharyngeal exudate or posterior oropharyngeal erythema. Comments: without oropharyngeal masses Eyes: General: No scleral icterus. Extraocular Movements: Extraocular movements intact. Conjunctiva/sclera: Conjunctivae normal. Pupils: Pupils are equal, round, and reactive to light. Cardiovascular: Rate and Rhythm: Normal rate and regular rhythm. Heart sounds: No murmur heard. Pulmonary: Effort: Pulmonary effort is normal. No respiratory distress. Breath sounds: Normal breath sounds. No wheezing, rhonchi or rales. Abdominal: General: Abdomen is flat. Bowel sounds are normal. There is no distension. Palpations: Abdomen is soft. There is no hepatomegaly, splenomegaly or mass. Tenderness: There is no abdominal tenderness. There is no guarding. Musculoskeletal: Right lower leg: No edema. Left lower leg: No edema. Lymphadenopathy: Head: Right side of head: No submental, submandibular, preauricular, posterior auricular or occipital adenopathy. Left side of head: No submental, submandibular, preauricular, posterior auricular or occipital adenopathy. Cervical: No cervical adenopathy. Upper Body: Right upper body: No supraclavicular, axillary or epitrochlear adenopathy. Left upper body: No supraclavicular, axillary or epitrochlear adenopathy. Skin: General: Skin is warm and dry. Coloration: Skin is not jaundiced or pale. Findings: No erythema or rash. Neurological: General: No focal deficit present. Mental Status: He is alert and oriented to person, place, and time. Cranial Nerves: No cranial nerve deficit. Coordination: Coordination normal. Gait: Gait normal. Psychiatric: Mood and Affect: Mood normal. Behavior: Behavior normal. Thought Content: Thought content normal. Judgment: Judgment normal. Results: ENT note reviewed Radiation oncology note reviewed Pathology result reviewed Assessment/Plan: # History of squamous cell carcinoma of head and neck In summary, Topher Allan is a 70 y.o. male with a PMHx significant for: Ceballos's palsy and hiatalhernia who presents here today for a follow- up visit regarding history of squamous cell carcinoma of head and neck. Monty presents for follow-up for the ongoing monitoring of his history of squamous cell carcinoma of the head and neck. He presents here today without any new complaints, or oncologic concerns. He has ongoing sensory peripheral neuropathy involving his distal feet. He continues to remain clinically YASIR. He has gained weight. He is doing well from an oncologic standpoint. Labs ordered, including TFTs. Continue ongoing surveillance. Maintain follow-up with ENT and radiation oncology. He will see Dr. Abbasi on 11.25.2025. He will see Dr. Oneal on 12.16.2025. Plan for addressing psychosocial status: no needs at this time. # Sensory peripheral neuropathy (left distal foot) Chemotherapy related. Stable. He is uncertain if he is obtaining benefit from gabapentin at night. We discussed holding gabapentin for the next several evenings and re-assess. He can resume it if there has been clinical benefit ( I renewed his Rx). I recommended continuing L-acetylcarnitine and alpha lipoic acid, and cocoa butter twice daily. He did not benefit from menthol cream. Upon my review of records, I reviewed pathology from thyroid, dated August 02, 2025, benign consistent with lymphocytic thyroiditis and a benign follicular nodule. ORDERS 1. Squamous cell carcinoma of head and neck - Complete Blood Count, with Differential - Basic Metabolic Panel - HEPATIC FUNCTION PANEL - TSH Reflex to Free T4 2. Sensory peripheral neuropathy - gabapentin (NEURONTIN) 300 MG capsule; Take 1 capsule (300 mg total) by mouth daily as needed forpain. Dispense: 30 capsule; Refill: 1 The patient will return in 12 months. There are no Patient Instructions on file for this visit. Number and complexity of problems addressed- moderate Amount and/or complexity of data to be reviewed and analyzed- moderate Risk of complications and/or morbidity or mortality of patient management- moderate documented in this encounter Plan of Treatment Not on file documented as of this encounter Goals Goal Patient Goal Type Associated Problems Recent Progress Patient-Stated? Author ST LTG 1 Speech Therapy No Ela Ordonez CCC-ROXANNA Note: The patient will present with a functional swallow mechanism to tolerate a least restrictive diet during radiation therapy with no concerns for aspiration in [address] STG 1 Speech Therapy No Ela Ordonez CCC-SLP Note: The patient will complete 10/10 oral and pharyngeal strengthening exercises independently with 100% accuracy in 3/[address] STG 2 Speech Therapy No Ela Ordonez CCC-SLP Note: The patient will tolerate a least restrictive diet without clinical indicators of penetration or aspiration to maintain nutrition via oral intake only. documented as of this encounter Procedures Procedure Name Priority Date/Time Associated Diagnosis Comments TSH REFLEX TO FREE T4 Routine 10/18/2025 1:32 PM EST Squamous cell carcinoma of head and neck COMPLETE BLOOD COUNT, WITH DIFFERENTIAL Routine 10/18/2025 1:32 PM EST Squamous cell carcinoma of head and neck HEPATIC FUNCTION PANEL Routine 10/18/2025 1:32 PM EST Squamous cell carcinoma of head and neck BASIC METABOLIC PANEL Routine 10/18/2025 1:32 PM EST Squamous cell carcinoma of head and neck documented in this encounter Results * TSH Reflex to Free T4 (10/18/2025 1:32 PM EST) TSH, Highly Sensitive 3.73 0.27 - 4.20 mIU/L 10/19/2025 3:00 AM EST [facility] Blood Blood specimen / Unknown 10/18/2025 1:32 PM EST 10/19/2025 1:20 AM EST us Marvel Cordero MD LAB BLOOD ORDERABLES Final Re sult [facility] [address] [place] [address], [address] [address] * HEPATIC FUNCTION PANEL (10/18/2025 1:32 PM EST) Alkaline Phosphatase 57 45 - 128 U/L 10/19/2025 3:00 AM [facility] Aspartate Aminotrans (AST) 22 10 - 55 U/L 10/19/2025 3:00 AM [facility] Alanine Aminotrans (ALT) 21 10 - 55 U/L 10/19/2025 3:00 AM [facility] Bilirubin, Total 0.3 0.2 - 1.0 mg/dL 10/19/2025 3:00 AM [facility] Protein, Total 6.7 6.3 - 8.3 g/dL 10/19/2025 3:00 AM [facility] Albumin 3.9 3.4 - 4.8 g/dL 10/19/2025 3:00 AM [facility] Bilirubin, Direct 0.1 0 - 0.2 mg/dL 10/19/2025 3:00 AM [facility] Globulin 2.8 1.5 - 3.9 g/dL 10/19/2025 3:00 AM [facility] Albumin/Globulin Ratio 1.4 1.0 - 3.0 Ratio 10/19/2025 3:00 AM [facility] Blood Blood specimen / Unknown 10/18/2025 1:32 PM EST 10/19/2025 1:20 AM EST Marvel Cordero MD LAB BLOOD ORDERABLES Final Re sult [address] [address], [address] [address] * Basic Metabolic Panel (10/18/2025 1:32 PM EST) [facility] Glucose 67 65 - 99 mg/dL 10/19/2025 3:00 AM [facility] Comment:Fasting: <100 mg/dL, Non-Fasting: <200 mg/dL (ADA 2005) Blood Urea Nitrogen (BUN) 21 8 - 21 mg/dL 10/19/2025 3:00 AM [facility] Creatinine 1.01 0.50 - 1.30 mg/dL 10/19/2025 3:00 AM [facility] eGFR 81 >59 10/19/2025 3:00 AM [facility] Comment:CKD-EPI (2020) in mL /min/1.73 sq meters. Sodium 141 136 - 145 mmol/L 10/19/2025 3:00 AM [facility] Potassium 4.0 3.4 - 5.3 mmol/L 10/19/2025 3:00 AM [facility] Chloride 103 98 - 107 mmol/L 10/19/2025 3:00 AM [facility] CO2 27 22 - 33 mmol/L 10/19/2025 3:00 AM [facility] Anion Gap 11 7 - 17 10/19/2025 3:00 AM [facility] Calcium 9.5 8.7 - 10.5 mg/dL 10/19/2025 3:00 AM [facility] BUN/Creatinine Ratio 21 10.0 - 25.0 Ratio 10/19/2025 3:00 AM [facility] Blood Blood specimen / Unknown 10/18/2025 1:32 PM EST 10/19/2025 1:20 AM EST Marvel Cordero MD LAB BLOOD ORDERABLES [place] [address], [address] [address] * (ABNORMAL) Complete Blood Count, with Differential (10/18/2025 1:32 PM EST) White Blood Cell Count 4.6 4.0 - 11.0 Thou/uL 10/19/2025 2:33 AM [facility] Platelet Count 287 150 - 450 Thou/uL 10/19/2025 2:33 AM [facility] Hemoglobin 14.5 13.0 - 17.7 g/dL 10/19/2025 2:33 AM [facility] Hematocrit 46.9 39.0 - 54.0 % 10/19/2025 2:33 AM [facility] Red Blood Cell Count 4.99 4.50 - 6.20 Mil/uL 10/19/2025 2:33 AM [facility] MCV 94 80 - 100 fL 10/19/2025 2:33 AM [facility] MCH 29.1 27.0 - 31.0 pg 10/19/2025 2:33 AM [facility] MCHC 30.9 30.0 - 36.0 g/dL 10/19/2025 2:33 AM [facility] RDW 13.7 11.5 - 14.5 % 10/19/2025 2:33 AM [facility] MPV 11.5 7.5 - 12.5 fL 10/19/2025 2:33 AM [facility] Neutrophils Auto 64.6 % 10/19/20 2:33 AM [facility] Immature Granulocytes 0.4 % 10/19/2025 2:33 AM [facility] Lymphocytes Auto 22.8 % 10/19/20 2:33 AM [facility] Monocytes Auto 8.7 % 10/19/2025 2:33 AM [facility] Eosinophils Auto 2.0 % 10/19/20 2:33 AM [facility] Basophils Auto 1.5 % 10/19/2025 2:33 AM [facility] Abs Neutrophils Auto 2.97 2.00 - 7.50 Thou/uL 10/19/2025 2:33 AM [facility] Abs Immature Granulocytes 0.02 0.00 - 0.10 Thou/uL 10/19/2025 2:33 AM [facility] Abs Lymphocytes Auto 1.05(L) 1.50 - 4.50 Thou/uL 10/19/2025 2:33 AM [facility] Abs Monocytes Auto 0.40 0.20 - 1.50 Thou/uL 10/19/2025 2:33 AM [facility] Abs Eosinophils Auto 0.09 0.00 - 0.70 Thou/uL 10/19/2025 2:33 AM [facility] Abs Basophils Auto 0.07 0.00 - 0.20 Thou/uL 10/19/2025 2:33 AM [facility] Blood Blood specimen / Unknown 10/18/2025 1:32 PM EST 10/19/2025 1:20 AM EST Marvel Cordero MD LAB BLOOD ORDERABLES Final Re sult [facility] [address] [place] [address], [facility] [address] [place] [address] documented in this encounter Visit Diagnoses Diagnosis Squamous cell carcinoma of head and neck- Primary Sensory peripheral neuropathy Unspecified hereditary and idiopathic peripheral neuropathy Prescription refill Issue of repeat prescriptions documented in this encounter Care Teams Wad Lubricator Relationship Specialty Start Date End Date Yanet Keane PA-C [address] [place] [id number] PCP - General 04/14/24 Balbir Oneal MD [address] [place] [address] Radiation Oncology 04/15/24 [facility] Hermelinda Franco, RN [address] [place] [address] Oncology Nurse Navigator 04/16/24 Mariann Horne PA-C [address] [place] [address] Physician Data Mining Analyst Surgery, Cardiac 08/07/24 Aravind Abel MD [address] [place] [address] Surgery, Cardiac 08/07/24 Migel Davis MD [address] [place] [id number] Primary [facility] Cardiovascular Disease 09/29/24 documented as of this encounter
[2025-10-18 22:08] VITALS: BP 112/65; PULSE 57; RESP 18; TEMP 36.9; O2SAT 96; BMI 27.1
--- NOTE | 2025-10-19 03:24 | PC.NURSE ---
pt presents to triage door to inform RN that elbow swelling is increasing significantly. multiple ice packs given throughout wait in waiting room. MD aware. labs ordered. no bed available at this time
[2025-10-19 03:46] LABS: MANUAL DIFF FLAG NO
[2025-10-19 03:48] LABS: Hematocrit 42.2 % (42.0-52.0); Hemoglobin 14.1 g/dl (14.0-18.0); Imm Gran Abs Auto 0.03 X10*3/uL (0.00-0.03); Imm Gran Pct Auto 0.5 % (0.0-0.4); Lymphocytes Absolute Auto 1.2 X10*3/uL (1.2-4.9); Mean Corpuscular HGB Conc 33.4 g/dl (31.0-36.0); Mean Corpuscular Hemoglobin 29.9 pg (27.0-33.0); Mean Corpuscular Volume 89.4 fL (80.0-98.0); NRBC Abs Auto 0.000 X10*3/uL (0.0-0.012); NRBC Pct Auto 0.0 /100WBC (0.0-0.2); Platelet Count 243 X10*3/uL (160-400); Red Blood Count 4.72 X10*6/uL (4.60-5.80); White Blood Count 6.1 X10*3/uL (4.8-10.8)
[2025-10-19 04:16] LABS: Alanine Aminotransferase 21 U/L (0-40); Albumin Level 4.0 g/dL (3.5-5.0); Alkaline Phosphatase 55 U/L (39-117); Anion Gap 12 (12-20); Aspartate Amino Transferase 20 U/L (5-37); Blood Urea Nitrogen 27 mg/dL (9-16); Calcium 8.9 mg/dL (8.4-10.2); Carbon Dioxide 27 mmol/L (22-29); Chloride 106 mmol/L (96-108); Creatinine Clr Calc Pharmacy 64.6; Estimated Glomerular Filt Rate > 60; Potassium 3.9 mmol/L (3.3-5.1); Sodium 141 mmol/L (135-145); Total Protein 6.3 g/dL (6.5-8.0)
[2025-10-19 04:45] LABS: Erythrocyte Sedimentation Rate 6 MM/HR (0-15)
[2025-10-19 06:31] VITALS: BP 144/72; PULSE 50; RESP 16; TEMP 36.6; O2SAT 98
--- NOTE | 2025-10-19 07:03 | ED_ITS ---
HPI - Extremity Problem General Chief complaint: Extremity Injury, Upper Stated complaint: Injury Time Seen by Provider: 10/19/25 07:03 Source: patient Mode of arrival: ambulatory Limitations: no limitations History of Present Illness ED Provider: Erin Ramirez PA-C HPI Narrative: Patient is a 70 year old assigned male at with a history of cancer - not active presenting to the emergency department today with right elbow swelling and warmth. Patient states that he was flossing his teeth when he noticed his right elbow was swollen and he began to have pain in it with warmth. Patient denies any trauma to the area. Patient denies this ever happening before. Patient denies any other complaints at this time. Related Data Previous Rx's ?Medication ?Instructions ?Recorded naproxen 500 mg tablet 500 mg PO BID 7 days #14 tab s 10/19/25 prednisone 20 mg tablet 20 mg PO DAILY 7 days #7 tab s 10/19/25 Allergies Allergy/AdvReac Type Severity Reaction Status Date / Time No Known Allergies Allergy Verified 10/18/25 22:10 Review of Systems 2 Constitutional: Constitutional: Reports as per HPI Eyes: Eyes: Reports as per HPI ENT: Reports as per HPI Cardiovascular: Cardiovascular: Reports as per HPI Respiratory: Respiratory: Reports as per HPI Gastrointestinal: Gastrointestinal: Reports as per HPI Genitourinary: Genitourinary: Reports as per HPI Musculoskeletal: Musculoskeletal: Reports as per HPI Integumentary/Breasts: Skin/Breast: Reports as per HPI Neurologic: Reports as per HPI Psychiatric: Psychiatric: Reports as per HPI Endocrine: Endocrine: Reports as per HPI Hematologic/Lymphatic: Hematologic/Lymphatic: Reports as per HPI Allergic/Immunologic: Allergic/Immunologic: Reports as per HPI [facility] Past Medical History Attestation statement: The following information was validated with the patient. Source: old records reviewed and nursing notes reviewed Social History Social History Advance Directives: Yes Advance Directives Information Provided: Yes Advance Directives on File: No Physical Exam 2 Vital Signs: Vital Signs: Last Vital Signs Temp 97.9 F 10/19/25 07:25 Pulse 50 10/19/25 07:25 Resp 16 10/19/25 07:25 BP 144/72 H 10/19/25 07:25 Pulse Ox 98 10/19/25 07:25 O2 Del Method Room Air 10/19/25 07:25 BMI result Body Mass Index 27.1 Const: General: cooperative, no acute distress, alert and awake Nutritional Appearance: well nourished Orientation/consciousness: patient oriented x3 HEENT: Head: Yes normal to inspection and Yes atraumatic Ears: hearing grossly normal bilaterally and external ears normal General nose exam: Normal external nose present, no nasal discharge noted and no epistaxis Face and sinus: Yes normal facial exam, No abrasion and No laceration Mouth: Normal oral and palatal mucosa present, no drooling and no muffled voice Eyes: General: appearance normal, both eyes and all related structures P eriorbital: periorbital findings normal Eyelids: Yes eyelids normal C onjunctivae: conjunctivae normal Pupils: Equal, round and reactive pupils present EOM: EOMs intact bilaterally Neck: Neck: Yes normal visual inspection and Yes full ROM Resp: Effort & Inspection: normal respiratory effort and able to speak in complete sentences Neuro: General: patient oriented x3, moves all extremities and CN's II-XI intact bilaterally Cranial nerves: Yes Equal, round and reactive pupils present Cognition (Neuro): normal cognition Extrem: Other: swelling present to the right elbow with very minimal warmth and no erythema. General: Yes full ROM and Yes capillary refill normal Psych: Appearance: grossly normal Mental Status: mental status grossly normal Affect: normal affect Attitude: cooperative Thought process: N ormal thought process present Thought content: Normal thought content present Insight: Good insight present (Psych) Medications Administered Discontinued Medications Generic Name Dose Route Start Last Admin Trade Name Freq PRN Reason Stop Dose Admin Ketorolac Tromethamine 15 mg 10/19/25 07:11 10/19/25 07:16 Ketorolac Tromethamine 15 Mg/Ml Vial IM 10/19/25 07:12 15 mg ONCE ONE Administration Methylprednisolone Sodium Succinate 60 mg 10/19/25 07:11 10/19/25 07:16 Methylprednisolone Sod Succ 125 Mg/2 Ml Vial IM 10/19/25 07:12 60 mg ONCE ONE Administration Medical Decision Making Medical Decision Making MDM Narrative: Patient is a 70 year old assigned male at with a history of cancer - not active presenting to the emergency department today with right elbow swelling and warmth. Patient's physical exam was as noted in the physical exam portion of this note and consistent with right elbow bursitis. Patient's blood work was unremarkable. Patient's right elbow x-ray showed no acute process. I explained my physical exam findings as well as all test results to the patient. I answered all questions asked by the patient. I stressed the importance of the patient taking his medication as directed (either prescribed or as the over the counter packaging recommends). I stressed the importance of the patient following up with his primary care provider and the orthopedic team. I stressed the importance of the patient returning to the emergency department immediately if his symptoms were to worsen or if he were to develop any dizziness, shortness of breath, difficulty breathing, chest pain, blurry vision, loss of vision, nausea, vomiting, abdominal pain, fever, chills, back pain, or any other complaints. Patient verbalized agreement and understanding with this treatment plan and discharge. Differential Diagnosis Differential Diagnoses: The differential diagnosis associated with the presentation includes Bursitis Elbow pain Admission/Observation Consideration of admission/observation: Escalation of care including admission/observation considered Patient would have been admitted to the hospital had his work up had any findings where hospital admission was appropriate and his clinical presentation warranted hospital admission. Lab Data [facility] Lab Attestation statement: I reviewed the patient's lab results. My interpretation of these results are in the [facility] Rationale portion of this note. 10/19/25 03:34 10/19/25 03:34 Labs: Lab Results 10/19/25 Range/Units 03:34 WBC 6.1 (4.8-10.8) X10*3/uL RBC 4.72 (4.60-5.80) X10*6/uL Hgb 14.1 (14.0-18.0) g/dl Hct 42.2 (42.0-52.0) % MCV 89.4 (80.0-98.0) fL MCH 29.9 (27.0-33.0) pg MCHC 33.4 (31.0-36.0) g/dl RDW 13.4 (11.0-16.0) % Plt Count 243 (160-400) X10*3/uL MPV 9.9 (9.4-12.4) fL Immature Gran % (Auto) 0.5 H (0.0-0.4) % Neut % (Auto) 67.0 (45-73) % Lymph % (Auto) 18.8 L (20-40) % Mills % (Auto) 9.8 (2-11) % Eos % (Auto) 2.9 (0-4) % Baso % (Auto) 1.0 (0-2) % Lymph # (Auto) 1.2 (1.2-4.9) X10*3/uL Mills # (Auto) 0.6 (0.1-1.2) X10*3/uL Eos # (Auto) 0.2 (0.0-0.4) X10*3/uL Baso # (Auto) 0.1 (0.0-0.2) X10*3/uL Abs Immat Gran (auto) 0.03 (0.00-0.03) X10*3/uL Absolute Neuts (auto) 4.1 (2.0-8.3) x10*3/uL Absolute Nucleated RBC 0.000 (0.0-0.012) X10*3/uL Nucleated RBC % (auto) 0.0 (0.0-0.2) /100WBC ESR 6 (0-15) MM/HR Sodium 141 (135-145) mmol/L Potassium 3.9 (3.3-5.1) mmol/L Chloride 106 (96-108) mmol/L Carbon Dioxide 27 (22-29) mmol/L Anion Gap 12 (12-20) BUN 27 H (9-16) mg/dL Creatinine 1.20 (0.5-1.4) mg/dL Estim Creat Clear Calc 64.6 Estimated GFR > 60 Random Glucose 96 (60-115) mg/dL Calcium 8.9 (8.4-10.2) mg/dL Total Bilirubin 0.2 (0.0-1.0) mg/dL AST 20 (5-37) U/L ALT 21 (0-40) U/L Alkaline Phosphatase 55 (39-117) U/L Total Creatine Kinase 134 (38-174) U/L Total Protein 6.3 L (6.5-8.0) g/dL Albumin 4.0 (3.5-5.0) g/dL Independent Interpretation I performed an independent interpretation of an: Plain X-Ray Interpretation: My interpretation is in agreement with the radiologist's impression of this imaging study as written below. CLINICAL HISTORY: swollen 4 view right elbow Comparison: None provided Findings: No acute fractures. Normal alignment. 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 Moderate soft tissue swelling. No joint effusion. No radiopaque foreign body. IMPRESSION: 1. No acute findings. Mild DJD. Moderate soft tissue swelling. This document has been electronically signed by: Ariadna Jc MD on 10/18/2025 23:09:58 Dictated By: Ariadna Jc MD Signed By: Electronically signed by Ariadna Jc MD 10/18/25 [id number] Radiology Impression Discussion of test interpretation with radiology: I have reviewed the radiologist's reading. Prescription Management I considered prescription management with: Pain Medication (patient prescribed pain medication) Discharge Plan Discharge Clinical Impression: Bursitis of elbow Patient Disposition: Home, Self-Care Instructions: Elbow Bursitis (ED) Additional Instructions: Your work up today is reassuring there is no EMERGENT cause for your symptoms. Your elbow examination today is most consistent with bursitis. You were given a dose of Solu-medrol (corticosteroid) and Toradol (anti- inflammatory) while in the department and have been prescribed similar medication to take at home. Prednisone (the corticosteroid I'm prescribing you) is activating so avoid taking it after 1pm to avoid issues with sleep. Wear an over the counter compression sleeve on your elbow but every 1 hour for 10 minutes remove it and move the elbow to avoid freezing the joint. If your symptoms persist - follow up with the orthopedic team. IF you are prescribed home medications and/or you are taking over the counter medications at home - it is very important you continue to do so as prescribed / directed unless told otherwise by a healthcare provider. Follow up with your primary care provider. Do your best to stay well hydrated and rest. Return to the emergency department immediately if your symptoms worsen or if you develop any numbness, tingling, dizziness, shortness of breath, difficulty breathing, chest pain, blurry vision, loss of vision, nausea, vomiting, abdominal pain, fever, chills, back pain, or any other complaints. Please see the information below about our Patient Portal. If you are not yet enrolled in the [facility] Patient Portal, you will receive an enrollment email invitation following your visit to any [facility] care setting. You may also self-enroll in the Patient Portal by visiting our website: [email or web address] The following information is required to access the Patient Portal: - Your [facility] Medical Record Number - Your personal home email address (must match what is in your electronic medical record, Registration staff can assist with this) - Name - Date of Capabilities of the Patient Portal: - Message some providers - View upcoming appointments - Access your health summary, medical history, and visit history - View current conditions and allergies - View procedure and lab results - View your medications, including guidelines, side effects, and precautions - Complete pre-appointment questionnaires requested by your provider - Ready summary reports of your office visits and procedures To access the Patient Portal Mobile Steven, follow these directions: - Search On The Net Yet in the Steven Store or [email or web address] Store - Download the Steven - Search for [facility] - Enter your login/password Prescriptions: New prednisone 20 mg tablet 20 mg PO DAILY 7 Days Qty: 7 0RF naproxen 500 mg tablet 500 mg PO BID 7 Days Qty: 14 0RF Referrals: [facility] Orthopedic Surgeons [Provider Group] Referral Note: If your symptoms persist, call to establish and follow up with the orthopedic team. Stephanie Laureano NP [Primary Care Provider, Family Practice] Interventions: ED Discharge Assessment Last Done: 10/19/25 07:25 Discharge Date/Time: 10/19/25 07:25 Print Language: Tanzanian
--- OUTSIDE RECORDS SUMMARY | 2025-10-19 07:05 | XMS_ITS | Encounter Summary ---
Author Organization [facility] Address [address] [facility] [address] [place] [address] Phone Care Team Providers Care Coffee Taster Name Role Phone Keagan Pizarro MD Primary Care Provider [phone] Yanet Keane PA-C Primary Care Provider [phone] Encounter Details Date Type Department Care Team (Late st Contact Info) Description 06/04/2022 Procedure Pass [place] Admitting Dept - Virtual Department [address] [place] [address] Social History Tobacco Use Types Packs/Day Years [...] on filedocumented in this encounter Care Teams Coffee Taster Relationship Specialty Start Date End Date Keagan Pizarro MD [address] [place] [phone] [email or web address] PCP - General Family Medicine 05/23/22 05/19/23 Yanet Keane PA-C [address] [place] [phone] [email or web address] PCP - General Physician Field Crop Farming Supervisor 05/20/23 documented as of this encounter Additional Source Comments The information contained in this document represents components of the legal health record. It is not the complete legal health record.[facility]
--- OUTSIDE RECORDS SUMMARY | 2025-10-19 07:05 | XMS_ITS | Encounter Summary ---
Author Organization [facility] Address [address] [facility] [address] [place] [phone] Phone Care Team Providers Care Risk Specialist Name Role Phone Yanet Keane PA-C Primary Care Provider Encounter Details Date Type Department Care Team (Late st Contact Info) Description 11/09/2023 Procedure Pass [facility], [facility] Scan - [address] [address] Social History Tobacco Use Types Packs/Day Years Used Date Smoking Tobacco: Former Cigarettes 0.5 10 1 987 - 1996 Smokeless Tobacco: Never Alcohol Use Standard Drinks/Week Comments Not Currently 0 (1 standard drink = 0.6 oz pur e alcohol) Education Answer Date Recorded Are you interested in more education? Not on fransisca e 03/15/2023 Are you concerned about learning? Not on file 03/15/2023 No 03/15/2023 No 03/15/2023 Digital Access Answer Date Recorded No 04/13/2023 No 04/13/2023 Reliable internet access at home? Not on file 04/13/2023 Device with a working camera? Not on file Intimate Partner Violence Answer Date R ecorded Are you denied basic needs s uch as food, clothing, or medical care? No 11/09/2023 In the past 12 months have y ou been in a relationship with a person who hurts, threatens, or tries to control you? No 11/09/2023 Are you denied basic needs s uch as food, clothing, or medical care? No 11/09/2023 In the past 12 months have y ou been in a relationship with a person who hurts, threatens, or tries to control you? No 11/09/2023 Sex and Gender Information Value Date Recorded Sex Assigned at Male 12/31/2019 6:51 PM EST Legal Sex Male 9:53 PM EDT Gender Identity Male 12/31/2019 6:51 PM EST Sexual Orientation Not on file documented as of this encounter Functional Status * Calculated C-SSRS Risk Score (Lifetime/Recent) Answer Date of Assessment Author No Risk Indicated 11/09/2023 2:41 PM EST Luz Dominguez RN * [place] Suicide Severity Rating Scale (Screener/Recent Self-Report) Question Answer Date of Assessment Author 1. Wish to be (Past 1 Month) No 023 2:41 PM Luz Christiansen RN 2. Non-Specific Active Suici courtney Thoughts (Past 1 Month) No 11/09/2023 2:41 PM EST Tabitha Dominguez RN 6. Suicidal Behavior (Lifetime) No 3 2:41 PM EST Luz Dominguez RN documented as of this encounter Plan of Treatment Not on file documented as of this encounter Visit Diagnoses Not on filedocumented in this encounter Care Teams Risk Specialist Relationship Specialty Start Date End Date Yanet Keane PA-C [address] [place] [phone] [email or web address] PCP - General Physician Electronic Scale Subassembler 05/20/23 documented as of this encounter Additional Source Comments The information contained in this document represents components of the legal health record. It is not the complete legal health record.[facility]
--- OUTSIDE RECORDS SUMMARY | 2025-10-19 07:05 | XMS_ITS | Clinical Summary ---
Author Organization [facility] Address [address] [place] [address] Care Team Providers Care Jewel Corner Brushing Machine Operator Name Role Phone Unavailable Primary Care Provider [...] - PCV) 2022 COVID-19 Vaccine (3 - 2024-2 6 season) 2025 03/04/2021, 02/11/2021 Influenza Vaccine (#1) 2025 RSV Adult > 60+ Yrs or (1 - 1-dose 75+ series) 2032 Hepatitis B Vaccines Aged Out No long er eligible based on patient's age to complete this topic RSV Ped < 20 months Aged Out No longe r eligible based on patient's age to complete this topic
--- OUTSIDE RECORDS SUMMARY | 2025-10-19 07:05 | XMS_ITS ---
Author Organization [facility] Address [address] [place] [address] Care Team Providers Care Director Of Occupational Therapy Name Role Phone Yanet Keane PA-C Primary Care Provider [phone] Balbir Oneal MD Unavailable [phone] [facility] SalvadorHermelinda RN Unavailable [phone] Mariann Horne PA-C Unavailable Aravind Abel MD [...] as planned. Current Treatment and Therapy Plans No current plan information found. Past Treatment and Therapy Plans INFUSION TREATMENT 1 Plan Name Start Date Discontinue Date Treatment Medications Discontinue Reason Plan Provider Hydration WITHOUT Additives Therapy Plan 06/16/2024 05/27/2025 No medications scheduled. Therapy Complete Balbir Oneal MD ONCOLOGY TREATMENT PLAN 1 Plan Name Start Date Discontinue Date Treatment Medications Discontinue Reason Plan Provider Cycles CISplatin (40 mg/m ) x 5-7 Weeks + Concurrent Radiation 4 10/18/2025 CISplatin (PLATINOL) IVPB in 500 mL NS (< 50 mg/m2) Therapy Complete Karthik Adams MD 1 of 1 cycle started Radiation Treatments * Course 1 05/04/2024 - 06/22/2024 Treatment Sites Treatment Period Technique Fraction Dose Fra ctions Total Dose A1-2 L BOT Necks 05/04/2024 - 06/22/2024 VMAT 200 / 200 35 / 35 7,000 / 7,000
--- OUTSIDE RECORDS SUMMARY | 2025-10-19 07:05 | XMS_ITS | Encounter Summary ---
Author Organization [facility] Address [address] [place] [address] Care Team Providers Care Building Supervisor Name Role Phone Pcp, No Primary Care Provider UnavailYanet Santana PA-C Primary Care Provider [phone] Balbir Oneal MD Unavailable [facility] Hermelinda Franco RN Unavailable Mariann Horne PA-C Unavailable [phone] Aravind Abel MD Unavailable Migel Davis MD Unavailable Encounter Details Date Type Department Care Team (Late st Contact Info) Description 12/25/2023 Scanned Document [facility] [address] [place] [phone] Wili Mendoza MD [address] [place] [address] [address] [place] [address] Social History Tobacco Use Types Packs/Day Years Used Date Smoking Tobacco: Never Assessed Sex and Gender Information Value Date Recorded Sex Assigned at Male 04/07/2024 12:05 PM EDT Legal Sex Male 12:50 PM EST Gender Identity Male 04/07/2024 12:05 PM EDT Sexual Orientation Heterosexual (straight) 04/07 12:05 PM EDT documented as of this encounter Plan of Treatment Not on file documented as of this encounter Visit Diagnoses Not on filedocumented in this encounter Care Teams Building Supervisor Relationship Specialty Start Date End Date Pcp, No PCP - General General Medicine 10/29/23 04/13/24 Yanet Keane PA-C [address] [place] [address] [address] [place] [address] PCP - General 04/14/24 Balbir Oneal MD [address] [place] [address] Radiation Oncology 04/15/24 [facility] Heremlinda Franco, RN [address] [place] [address] Oncology Nurse Navigator 04/16/24 Mariann Horne PA-C [address] [place] [address] Physician Point Of Care Specialist Surgery, Cardiac 08/07/24 Aravind Abel MD [address] [place] [address] Surgery, Cardiac 08/07/24 Migel Davis MD [address] [place] [address] Primary County Agricultural Agent Cardiovascular Disease 09/29/24 documented as of this encounter
--- OUTSIDE RECORDS SUMMARY | 2025-10-19 07:05 | XMS_ITS | Encounter Summary ---
Author Organization [facility] Address [address] [place] [address] Care Team Providers Care Relay Checker Name Role Phone Yanet Keane PA-C Primary Care Provider [phone] Balbir Oneal MD Unavailable [facility] Hermelinda Franco RN Unavailable [phone] Mariann Horne PA-C Unavailable Aravind Abel MD Unavailable Migel Davis MD Unavailable Encounter Details Date Type Department Care Team (Late st Contact Info) Description 07/06/2025 Scanned Document [facility] [address], [address] [place] [address] Jonathon Abbasi DO [address] [place] [address] Social History Tobacco Use Types Packs/Day Years [...] LTG 1 Speech Therapy No Ela Ordonez CCC-GEOLOGY PROFESSOR Note: The patient will present with a functional swallow mechanism to tolerate a least restrictive diet during radiation therapy with no concerns for aspiration in [address]G 1 Speech Therapy No Ela Ordonez CCC-GEOLOGY PROFESSOR Note: The patient will complete 10/10 oral and pharyngeal strengthening exercises independently with 100% accuracy in 3/[address] STG 2 Speech Therapy No Ela Ordonez CCC-GEOLOGY PROFESSOR Note: The patient will tolerate a least restrictive diet without clinical indicators of penetration or aspiration to maintain nutrition via oral intake only. documented as of this encounter Visit Diagnoses Not on filedocumented in this encounter Care Teams Relay Checker Relationship Specialty Start Date End Date Yanet Keane PA-C [address] [place] [address] PCP - General 04/14/24 Balbir Oneal MD [address] [place] [address] Radiation Oncology 04/15/24 [facility] Hermelinda Franco RN [address] [place] [address] Oncology Nurse Navigator 04/16/24 Mariann Horne PA-C [address] [facility] [address] [place] [address] Physician Pneumatic Tool Operator Surgery, Cardiac 08/07/24 Aravind Abel MD [address] [facility] [address] [place] [address] Surgery, Cardiac 08/07/24 Migel Davis MD 7 [facility] [address] [place] [address] Primary Transplant Rn Cardiovascular Disease 09/29/24 documented as of this encounter
--- OUTSIDE RECORDS SUMMARY | 2025-10-19 07:05 | XMS_ITS | Encounter Summary ---
Author Organization [facility] Address [address] [place] [address] Care Team Providers Care Delimer Name Role Phone Pcp, No Primary Care Provider UnavailYanet Santana PA-C Primary Care Provider [phone] Balbir Oneal MD Unavailable [facility] Hermelinda Franco RN Unavailable Mariann Horne PA-C Unavailable Aravind Abel MD Unavailable Migel Davis MD Unavailable Encounter Details Date Type Department Care Team (Late st Contact Info) Description 12/25/2023 Scanned Document [facility] [address] [place] [phone] Wili Mendoza MD [address] [place] [address] [address] [place] [address] Social History Tobacco Use Types Packs/Day Years [...] on filedocumented in this encounter Care Teams Delimer Relationship Specialty Start Date End Date Pcp, No PCP - General General Medicine 10/29/23 04/13/24 Yanet Keane PA-C [address] [place] [address] [address] [place] [address] PCP - General 04/14/24 Balbir Oneal MD [address] [place] [address] Radiation Oncology 04/15/24 [facility] Hermelinda Franco, RN [address] [place] [address] Oncology Nurse Navigator 04/16/24 Mariann Horne PA-C [address] [place] [address] Physician Scrap Stripper Hand Surgery, Cardiac 08/07/24 Aravind Abel MD [address] [place] [address] Surgery, Cardiac 08/07/24 Migel Davis MD [address] [place] [address] Primary Rent And Miscellaneous Remittance Clerk Cardiovascular Disease 09/29/24 documented as of this encounter
--- OUTSIDE RECORDS SUMMARY | 2025-10-19 07:05 | XMS_ITS | Encounter Summary ---
Author Organization [facility] Address [address] [place] [address] Care Team Providers Care Hair Mixer Name Role Phone Yanet Keane PA-C Primary Care Provider + [phone] Balbir Oneal MD Unavailable [facility] Hermelinda Franco RN Unavailable [phone] Mariann Horne PA-C Unavailable Aravind Abel MD Unavailable Migel Davis MD Unavailable Encounter Details Date Type Department Care Team (Late st Contact Info) Description 07/06/2025 Scanned Document [facility] [address], [address] [place] [address] Jonathon Abbasi DO [address] [place] [id number] Social History Tobacco Use Types Packs/Day [...] LTG 1 Speech Therapy No Ela Ordonez CCC-SUPERANNUATION CLERK Note: The patient will present with a functional swallow mechanism to tolerate a least restrictive diet during radiation therapy with no concerns for aspiration in [address]G 1 Speech Therapy No Ela Ordonez CCC-SUPERANNUATION CLERK Note: The patient will complete 10/10 oral and pharyngeal strengthening exercises independently with 100% accuracy in 3/[address] STG 2 Speech Therapy No Ela Ordonez CCC-SUPERANNUATION CLERK Note: The patient will tolerate a least restrictive diet without clinical indicators of penetration or aspiration to maintain nutrition via oral intake only. documented as of this encounter Visit Diagnoses Not on filedocumented in this encounter Care Teams Hair Mixer Relationship Specialty Start Date End Date Yanet Keane PA-C [address] [place] [id number] PCP - General 04/14/24 Balbir Oneal MD [address] [place] [phone] Radiation Oncology 04/15/24 [facility] Hermelinda Franco RN [address] [place] [address] Oncology Nurse Navigator 04/16/24 Mariann Horne PA-C 85 [facility] [address] [place] [address] Physician Flight Operations Dispatch Clerk Surgery, Cardiac 08/07/24 Aravind Abel MD 85 [facility] [address] [place] [address] Surgery, Cardiac 08/07/24 Migel Davis MD 7 [facility] [address] [place] [address] Primary Health Record Technician Cardiovascular Disease 09/29/24 documented as of this encounter
--- OUTSIDE RECORDS SUMMARY | 2025-10-19 07:05 | XMS_ITS | Encounter Summary ---
Author Organization [facility] Address [address] [place] [address] Care Team Providers Care Pump Rebuilder Name Role Phone Yanet Keane PA-C Primary Care Provider + [phone] Balbir Oneal MD Unavailable [phone] [facility] Hermelinda Franco RN Unavailable [phone] Mariann Horne PA-C Unavailable Aravind Abel MD Unavailable Migel Davis MD Unavailable Encounter Details Date Type Department Care Team (Late st Contact Info) Description 04/21/2024 Scanned Document [facility] Radiation Oncology [address] [place] [id number] Provider, Generic Social History Tobacco Use Types Packs/Day Years [...] Never 04/03/2024 Overall Financial Resource Strain (CARDIA) Ellis r Date Recorded How hard is it [...] on filedocumented in this encounter Care Teams Pump Rebuilder Relationship Specialty Start Date End Date Yanet Keane PA-C [address] [place] [phone] PCP - General 04/14/24 Balbir Oneal MD [address] [place] [address] Radiation Oncology 04/15/24 [facility] Hermelinda Franco, RN [address] [place] [address] Oncology Nurse Navigator 04/16/24 Mariann Horne PA-C [address] [place] [phone] Physician Gas Main Fitter Surgery, Cardiac 08/07/24 Aravind Abel MD [address] [place] [id number] Surgery, Cardiac 08/07/24 Migel Davis MD [address] [place] [address] Primary Employment Advisor Cardiovascular Disease 09/29/24 documented as of this encounter
--- OUTSIDE RECORDS SUMMARY | 2025-10-19 07:05 | XMS_ITS | Clinical Summary ---
Author Organization [facility] Address [address] [place] [address] Care Team Providers Care Merchandise Appraiser Name Role Phone Yanet Keane PA-C Primary Care Provider [phone] Balbir Newman MD Unavailable [facility] Hermelinda Franco RN Unavailable [phone] Mariann Horne PA-C Unavailable [phone] Aravind Abel MD Unavailable [phone] Migel Davis MD Unavailable Allergies No known active allergies Medications magnesium oxide 250 MG Tab tablet Take 1 tablet (250 mg total) by mouth. Active carisoprodol (SOMA) 350 MG tablet TAKE 1 TABLET BY MOUTH FOUR TIMES A DAY NEEDED 4 Active metroNIDAZOLE (METROGEL) 0.75 % topical gel Apply topically 2 (two) times a day. Active amoxicillin (AMOXIL) 500 MG capsule Prior to dental cleaning 4 Active Acetylcarn-Alph a Lipoic Acid 400-200 MG CapIndications: Sensory peripheral neuropathy Take 400 mg by mouth 2 times a day. 5 Active vitamin B complex (b complex vitamins) capsule Take 1 capsule by mouth daily. Active gabapentin (NEURONTIN) 300 MG capsuleIndicati ons:Sensory peripheral neuropathy Take 1 capsule (300 mg total) by mouth daily as needed for pain. 30 capsule 1 5 Active PANTOprazole (PROTONIX) 40 MG EC tabletIndicatio ns:Dyspepsia Take 1 tablet (40 mg total) by mouth 2 times a day. 180 tablet 4 10/18/20 25 Discontinu ed(Med List Clean-up/O ld Med - No E-Cancel/N o AVS) gabapentin (NEURONTIN) 300 MG capsuleIndicati ons:Throat pain TAKE 1 CAPSULE BY MOUTH THREE TIMES A DAY 60 capsule 3 4 10/18/20 25 Discontinu ed(Therapy completed) PANTOprazole (PROTONIX) 40 MG EC tablet Take 1 tablet (40 mg total) by mouth daily as needed for heartburn. 10/18/20 25 Discontinu ed(Med List Clean-up/O ld Med - No E-Cancel/N o AVS) gabapentin (NEURONTIN) 300 MG capsuleIndicati ons:Sensory peripheral neuropathy TAKE 1 CAPSULE (300 MG TOTAL) BY MOUTH DAILY NEEDED FOR PAIN. 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 No recurrence since. Continue follow up as planned. 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); Sensory peripheral neuropathy; Prescription refill 09/28/2025 1:00 PM EST Hospital Encounter [facility] [address] [place] [address] Balbir Newman MD Head and neck cancer (HCC) (Primary Dx) 08/11/2025 2:00 PM EDT Office Visit [facility] [place] [address] [facility], [address] [place] [address] Jonathon Abbasi DO Thyroid nodule (Primary Dx); Malignant neoplasm of oropharynx (HCC); 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 08/02/2025 2:00 PM EDT - 08/02/2025 11:59 PM EDT Hospital Encounter [facility] [address] [place] [address] Brittany Flores PA Discharge Disposition: Home or Self Care from Last 3 Months Family History Medical History Relation Name Comments Atrial fibrillation Mother Relation Name Status Comments Mother Social History Tobacco Use Types Packs/Day Years Used Date Smoking Tobacco: Never Smokeless Tobacco: Never Tobacco Cessation:Counseling Given: Not Answered Alcohol Use Standard Drinks/Week Comments Yes 3 [...] Orientation Heterosexual (straight) 04/07 12:05 PM EDT Last Filed Vital Signs Vital Sign Reading Time Taken Comments Blood Pressure 122/73 10/18/2025 1:14 PM EST Pulse 63 10/18/2025 1:14 PM EST Temperature 35.9 C (96.7 F) 10/18/2025 1:14 PM EST Respiratory Rate 20 10/18/2025 1:14 PM EST Oxygen Saturation 97% 10/18/2025 1:14 PM EST Inhaled Oxygen Concentration - - Weight 92 kg (202 lb 14.4 oz) 10/18/2025 1:14 PM EST Height 180.3 cm (5' 11 ) 08/11/2025 2:04 PM EDT Body Mass Index 28.3 08/11/2025 2:04 PM EDT Plan of Treatment Health Maintenance Due Date Last Done Comments Advance Care Planning 1955 Hepatitis C Virus Screening 1955 DTaP/Tdap/Td Vaccines (1 - Tdap) 1976 Pneumococcal Vaccines 50+ (1 of 2 - PCV) 1976 Zoster (Shingles) Vaccine (1 of 2) 1976 Colonoscopy 2002 RSV Vaccine 50 years and older and Patients (1 - Risk 50-74 years 1-dose series) 2007 Influenza Vaccine 06/18/2025 07/30/2023, , 08/31/2021, Additional history exists COVID-19 Vaccine ( season) 2025 04/16/2023, 08/10/2022, 02/18/2022, Additional history exists Hepatitis B Vaccines Aged Out No long er eligible based on patient's age to complete this topic Goals Goal Patient Goal Type Associated Problems Recent Progress Patient-Stated? Author LTG 1 Speech Therapy No Ela Ordonez, ARIADNE-BIOSECURITY OFFICER Note: The patient will present with a functional swallow mechanism to tolerate a least restrictive diet during radiation therapy with no concerns for aspiration in [address]G 1 Speech Therapy No Ela Ordonez, CCC-BIOSECURITY OFFICER Note: The patient will complete 10/10 oral and pharyngeal strengthening exercises independently with 100% accuracy in 3/[address] STG 2 Speech Therapy No Ela Ordonez, ARIADNE-BIOSECURITY OFFICER Note: The patient will tolerate a least restrictive diet without clinical indicators of penetration or aspiration to maintain nutrition via oral intake only. Procedures Procedure Name Priority Date/Time Associated Diagnosis [...] Squamous cell carcinoma of head and neck HX OUTSIDE ORDER Routine 08/02/2025 9:50 PM EDT CYTOLOGY REPORT Routine 08/02/2025 2:00 PM EDT IR US GUIDED THYROID BIOPSY - [id number] Routine 08/02/2025 2:00 PM EDT from Last 3 Months Results * TSH Reflex to Free T4 (10/18/2025 1:32 PM EST) TSH, Highly Sensitive 3.73 0.27 - 4.20 mIU/L 10/19/2025 3:00 AM [facility] Blood Blood specimen / Unknown 10/18/2025 1:32 PM EST 10/19/2025 1:20 AM EST us Marvel Cordero MD LAB BLOOD ORDERABLES [place] [address], [address] [address] * (ABNORMAL) Complete Blood Count, with Differential (10/18/2025 1:32 PM EST) White Blood Cell Count 4.6 4.0 - 11.0 Thou/uL 10/19/2025 2:33 AM [facility] Platelet Count 287 150 - 450 Thou/uL 10/19/2025 2:33 AM [facility] Hemoglobin 14.5 13.0 - 17.7 g/dL 10/19/2025 2:33 AM [facility] Hematocrit 46.9 39.0 - 54.0 % 10/19/2025 2:33 AM [facility] Red Blood Cell Count 4.99 4.50 - 6.20 Mil/uL 10/19/2025 2:33 AM [facility] MCV 94 80 - 100 fL 10/19/2025 2:33 AM [facility] MCH 29.1 27.0 - 31.0 pg 10/19/2025 2:33 AM [facility] MCHC 30.9 30.0 - 36.0 g/dL 10/19/2025 2:33 AM [facility] RDW 13.7 11.5 - 14.5 % 10/19/2025 2:33 AM [facility] MPV 11.5 7.5 - 12.5 fL 10/19/2025 2:33 AM [facility] Neutrophils Auto 64.6 % 10/19/20 2:33 AM [facility] Immature Granulocytes 0.4 % 10/19/2025 2:33 AM [facility] Lymphocytes Auto 22.8 % 10/19/20 2:33 AM [facility] Monocytes Auto 8.7 % 10/19/2025 2:33 AM [facility] Eosinophils Auto 2.0 % 10/19/20 2:33 AM [facility] Basophils Auto 1.5 % 10/19/2025 2:33 AM [facility] Abs Neutrophils Auto 2.97 2.00 - 7.50 Thou/uL 10/19/2025 2:33 AM [facility] Abs Immature Granulocytes 0.02 0.00 - 0.10 Thou/uL 10/19/2025 2:33 AM [facility] Abs Lymphocytes Auto 1.05(L) 1.50 - 4.50 Thou/uL 10/19/2025 2:33 AM [facility] Abs Monocytes Auto 0.40 0.20 - 1.50 Thou/uL 10/19/2025 2:33 AM [facility] Abs Eosinophils Auto 0.09 0.00 - 0.70 Thou/uL 10/19/2025 2:33 AM [facility] Abs Basophils Auto 0.07 0.00 - 0.20 Thou/uL 10/19/2025 2:33 AM [facility] Blood Blood specimen / Unknown 10/18/2025 1:32 PM EST 10/19/2025 1:20 AM EST us Marvel Cordero MD LAB BLOOD ORDERABLES Final Re sult Performing Organization Address City/[facility]/ZIP Co de Phone Number [address] [address], [address] [address] * HEPATIC FUNCTION PANEL (10/18/2025 1:32 PM EST) [facility] Alkaline Phosphatase 57 45 - 128 U/L 10/19/2025 3:00 AM [facility] Aspartate Aminotrans (AST) 22 10 - 55 U/L 10/19/2025 3:00 AM [facility] Alanine Aminotrans (ALT) 21 10 - 55 U/L 10/19/2025 3:00 AM [facility] Bilirubin, Total 0.3 0.2 - 1.0 mg/dL 10/19/2025 3:00 AM [facility] Protein, Total 6.7 6.3 - 8.3 g/dL 10/19/2025 3:00 AM [facility] Albumin 3.9 3.4 - 4.8 g/dL 10/19/2025 3:00 AM [facility] Bilirubin, Direct 0.1 0 - 0.2 mg/dL 10/19/2025 3:00 AM [facility] Globulin 2.8 1.5 - 3.9 g/dL 10/19/2025 3:00 AM [facility] Albumin/Globulin Ratio 1.4 1.0 - 3.0 Ratio 10/19/2025 3:00 AM [facility] Blood Blood specimen / Unknown 10/18/2025 1:32 PM EST 10/19/2025 1:20 AM EST us Marvel Cordero MD LAB BLOOD ORDERABLES Final Re sult Performing Organization Address City/[facility] Co de Phone Number [address] [address], [address] [address] * Basic Metabolic Panel (10/18/2025 1:32 PM EST) Glucose 67 65 - 99 mg/dL 10/19/2025 3:00 AM [facility] Comment:Fasting: <100 mg/dL, Non-Fasting: <200 mg/dL (ADA 2005) Blood Urea Nitrogen (BUN) 21 8 - 21 mg/dL 10/19/2025 3:00 AM [facility] Creatinine 1.01 0.50 - 1.30 mg/dL 10/19/2025 3:00 AM [facility] eGFR 81 >59 10/19/2025 3:00 AM [facility] Comment:CKD-EPI (2020) in mL /min/1.73 sq meters. Sodium 141 136 - 145 mmol/L 10/19/2025 3:00 AM [facility] Potassium 4.0 3.4 - 5.3 mmol/L 10/19/2025 3:00 AM [facility] Chloride 103 98 - 107 mmol/L 10/19/2025 3:00 AM [facility] CO2 27 22 - 33 mmol/L 10/19/2025 3:00 AM [facility] Anion Gap 11 7 - 17 10/19/2025 3:00 AM [facility] Calcium 9.5 8.7 - 10.5 mg/dL 10/19/2025 3:00 AM [facility] BUN/Creatinine Ratio 21 10.0 - 25.0 Ratio 10/19/2025 3:00 AM [facility] Blood Blood specimen / Unknown 10/18/2025 1:32 PM EST 10/19/2025 1:20 AM EST us Marvel Cordero MD LAB BLOOD ORDERABLES Final Re sult [address] [address], [address] [address] * OUTSIDE ORDER (08/02/2025 9:50 PM EDT) us External Provider HX AMB PROCEDURES Final Res ult * IR US GUIDED THYROID BIOPSY - [id number] (08/02/2025 2:00 PM EDT) Anatomical Region Laterality Modality Other 08/02/2025 2:00 PM EDT 08/02/2025 2:00 PM EDT Impressions 08/02/2025 4:44 PM EDT Image-guided biopsy of 2 thyroid nodules: 1.The 1.6 cm left isthmus thyroid nodule 2.The 1.7 cm right isthmus thyroid nodule PLAN: Specimen(s) sent for cytology. PROCEDURE SUMMARY: - Percutaneous ultrasound-guided fine-needle aspiration - Additional procedure(s): None PROCEDURE DETAILS: PREPROCEDURE: Reference imaging for biopsy target: Thyroid ultrasound May 25, 2025 Consent: Informed consent for the procedure including risks, benefits and alternatives was obtained and time-out was performed prior to the procedure. Preparation: The site was prepared and draped using maximal sterile barrier technique including cutaneous antisepsis. ANESTHESIA/SEDATION: Level of anesthesia/sedation: Not applicable Anesthesia/sedation administered by: Not applicable Total intra-service sedation time (minutes): Not applicable IMAGING PRIOR TO BIOPSY: The patient was positioned supine on the ultrasound table. Initial imaging was performed. Biopsy targets: Nodule #1 - Maximal diameter (cm): 1.6 - Location: left isthmus thyroid nodule - Other findings: None Nodule #2 - Maximal diameter (cm): 1.7 - Location: right isthmus thyroid nodule -Other findings: None BIOPSY: 4mL 1% Lidocaine local anesthesia was administered. Under direct ultrasound guidance as stated in the procedure summary, the biopsy needle was advanced to the target and biopsy was performed. Nodule #1 - Maximal diameter (cm): 1.6 - Location: left isthmus thyroid nodule - Other findings: None Fine needle aspiration device: 10 mL syringe Fine needle size: 25 gauge Number of FNA specimens: 3 Nodule #2 - Maximal diameter (cm): 1.7 - Location: right isthmus thyroid nodule - Other findings: None Fine needle aspiration device: 10 mL syringe Fine needle size: 25 gauge Number of FNA specimens: 3 On-site biopsy touch preparation: No Additional sampling recommendations: None Preliminary assessment of sample adequacy: Not applicable NEEDLE REMOVAL: The biopsy needle was removed and a sterile dressing was applied. IMAGING FOLLOWING BIOPSY: Postbiopsy imaging: Ultrasound Postbiopsy imaging findings: Expected post biopsy findings. No large hematoma. ADDITIONAL DETAILS: Additional description of procedure: None Equipment details: None Specimens removed: Biopsy samples as detailed above Estimated blood loss (mL): Less than 5 Standardized report: [email or web address] This procedure was performed and dictated by Brittany Flores PA-C. Interpreted by: Brittany Flores PA-C I personally reviewed the images and the residents preliminary report and AGREE with the report as it is now presented ([email or web address]). Electronically signed by: Elie Lozada MD 08/02/2025 04:44 PM EDT Workstation: [id number] Thank you for referring your patient to us, Elie Lozada MD [phone] (Electronically Signed - 08/02/2025 16:44) Copy: BALBIR NEWMAN MD [facility] [address] [place] [address] PATIENT , Narrative 08/02/2025 4:44 PM EDT Addendum: ADDENDUM #1 CYTOPATHOLOGY REPORT Spec #: [id number] DIAGNOSIS: A. 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 B. LEFT ISTHMUS THYROID, FINE NEEDLE ASPIRATION: Benign ([place] Category II); consistent with benign follicular nodule (includes adenomatoid nodule, colloid nodule). A copy of this addended report with the pathology findings will be sent to the referring provider. Electronically signed by: Elie Lozada MD 08/10/2025 12:13 PM EDT Thank you for referring your patient to us, Elie Lozada MD [phone] (Electronically Signed - 08/10/2025 12:13) Copy: BALBIR NEWMAN MD [facility] [address] [place] [address] PATIENT , Original Report: PROCEDURE: IR THYROID FINE NEEDLE ASPIRATION REFERRING PROVIDER: Jonathon Abbasi DO PROCEDURAL PERSONNEL: Advanced Practice Provider(s): Brittany Flores PA-C PREPROCEDURE DIAGNOSIS: Thyroid nodules POSTPROCEDURE DIAGNOSIS: Same INDICATION: Histopathologic diagnosis Previous biopsy of same target (QCDR): No ADDITIONAL CLINICAL HISTORY: Thyroid nodules. COMPLICATIONS: No immediate complications. Procedure Note Elie Lozada MD - 08/10/2025 Addendum: ADDENDUM #1 CYTOPATHOLOGY REPORT Spec #: [id number] DIAGNOSIS: A. RIGHT ISTHMUS THYROID, FINE NEEDLE ASPIRATION: Benign ([place] Category II); consistent with lymphocytic ([place]imotos)thyroiditis in the proper clinical context. B. LEFT ISTHMUS THYROID, FINE NEEDLE ASPIRATION: Benign ([place] Category II); consistent with benign follicular nodule(includes adenomatoid nodule, colloid nodule). A copy of this addended report with the pathology findings will be sent tothe referring provider. Electronically signed by: Elie Lozada MD 08/10/2025 12:13 PM EDT RPWorkstation: [id number] Thank you for referring your patient to us, Elie Lozada MD [phone] (Electronically Signed - 08/10/2025 12:13) Copy: BALBIR NEWMAN MD [facility] [address] [place] [address] PATIENT , Original Report: PROCEDURE: IR THYROID FINE NEEDLE ASPIRATION REFERRING PROVIDER: Jonathon Abbasi DO PROCEDURAL PERSONNEL: Advanced Practice Provider(s): Brittany Flores PA-C PREPROCEDURE DIAGNOSIS: Thyroid nodules POSTPROCEDURE DIAGNOSIS: Same INDICATION: Histopathologic diagnosis Previous biopsy of same target (QCDR): No ADDITIONAL CLINICAL HISTORY: Thyroid nodules. COMPLICATIONS: No immediate complications. IMPRESSION: Image-guided biopsy of 2 thyroid nodules: 1.The 1.6 cm left isthmus thyroid nodule 2.The 1.7 cm right isthmus thyroid nodule PLAN: Specimen(s) sent for cytology. PROCEDURE SUMMARY: - Percutaneous ultrasound-guided fine-needle aspiration - Additional procedure(s): None PROCEDURE DETAILS: PREPROCEDURE: Reference imaging for biopsy target: Thyroid ultrasound May 25, 2025 Consent: Informed consent for the procedure including risks, benefits andalternatives was obtained and time-out was performed prior to theprocedure. Preparation: The site was prepared and draped using maximal sterilebarrier technique including cutaneous antisepsis. ANESTHESIA/SEDATION: Level of anesthesia/sedation: Not applicable Anesthesia/sedation administered by: Not applicable Total intra-service sedation time (minutes): Not applicable IMAGING PRIOR TO BIOPSY: The patient was positioned supine on the ultrasound table. Initial imagingwas performed. Biopsy targets: Nodule #1 - Maximal diameter (cm): 1.6 - Location: left isthmus thyroid nodule - Other findings: None Nodule #2 - Maximal diameter (cm): 1.7 - Location: right isthmus thyroid nodule -Other findings: None BIOPSY: 4mL 1% Lidocaine local anesthesia was administered. Under directultrasound guidance as stated in the procedure summary, the biopsy needlewas advanced to the target and biopsy was performed. Nodule #1 - Maximal diameter (cm): 1.6 - Location: left isthmus thyroid nodule - Other findings: None Fine needle aspiration device: 10 mL syringe Fine needle size: 25 gauge Number of FNA specimens: 3 Nodule #2 - Maximal diameter (cm): 1.7 - Location: right isthmus thyroid nodule - Other findings: None Fine needle aspiration device: 10 mL syringe Fine needle size: 25 gauge Number of FNA specimens: 3 On-site biopsy touch preparation: No Additional sampling recommendations: None Preliminary assessment of sample adequacy: Not applicable NEEDLE REMOVAL: The biopsy needle was removed and a sterile dressing was applied. IMAGING FOLLOWING BIOPSY: Postbiopsy imaging: Ultrasound Postbiopsy imaging findings: Expected post biopsy findings. No largehematoma. ADDITIONAL DETAILS: Additional description of procedure: None Equipment details: None Specimens removed: Biopsy samples as detailed above Estimated blood loss (mL): Less than 5 Standardized report: [email or web address] This procedure was performed and dictated by Brittany Flores PA-C. Interpreted by: Brittany Poplawski PA-C I personally reviewed the images and the residents preliminary report andAGREE with the report as it is now presented ([email or web address]). Electronically signed by: Elie Lozada MD 08/02/2025 04:44 PM EDT RPWorkstation: [id number] Thank you for referring your patient to us, Elie Lozada MD [phone] (Electronically Signed - 08/02/2025 16:44) Copy: BALBIR NEWMAN MD [facility] [address] [place] [address] PATIENT , us Jonathon Abbasi DO IMG LEGACY PROCEDURES Edited Res ult - Final * Cytology Report (08/02/2025 2:00 PM EDT) Report [facility] [id number] CLIA ID [id number] [address] [place] [address] / [phone] Cytopathology Report PATIENT NAME: BENITO [facility]AN [facility] REC NUMBER: [id number] (AGE): 1955 (Age: 70) SPECIMEN NUMBER: [id number] DATE OBTAINED: 08/02/2025 DIAGNOSIS: A. RIGHT ISTHMUS THYROID, FINE NEEDLE ASPIRATION: BENIGN ([place] CATEGORY II); CONSISTENT WITH LYMPHOCYTIC (LOLI'S) THYROIDITIS IN THE PROPER CLINICAL CONTEXT. B. LEFT ISTHMUS THYROID, FINE NEEDLE ASPIRATION: BENIGN ([place] CATEGORY II); CONSISTENT WITH BENIGN FOLLICULAR NODULE (INCLUDES ADENOMATOID NODULE, COLLOID NODULE). ct12/27/1608/04/2025 Electronically Signed Out KIMMIE CHAN MD Clinical Diagnosis and History: FNA BIOPSY THYROID NODULES: PART A- RIGHT ISTHMUS 1.7 CM PART B- LEFT ISTHMUS 1.6 CM Tissue(s) Submitted: A: RIGHT ISTHMUS Thyroid, Fine Needle Aspiration B: LEFT ISTHMUS Thyroid, Fine Needle Aspiration Specimen Description: PART A- RECEIVED 30 MLS CLEAR PINK IN CYTOLYT [1 THINPREP MADE] PLUS 3 LABELED SMEARS IN ETOH 4 SLIDES TOTAL PART B- RECEIVED 30 MLS CLEAR RED IN CYTOLYT [1 THINPREP MADE] PLUS 3 LABELED SMEARS IN ETOH 4 SLIDES TOTAL ICD Codes: E04.2 Nontoxic multinodular goiter [facility] 08/02/2025 2:00 PM EDT 08/03/2025 6:25 AM EDT Comment:RIGHT ISTHMUS Thyroi d, Fine Needle Aspiration&LEFT ISTHMUS Thyroid, Fine Needle Aspiration Jonathon Abbasi DO PATHOLOGY/CYTOLOGY ORDERABLES Fi nal Result HOSPITAL LAB See Below from Last 3 Months Insurance [facility] [employer] H[facility] Advance Directives * Full Code (Latest Code Status on File) Date Activated Date Inactivated Comments 04/14/2024 12:01 PM 06/22/2024 8:58 AM Care Teams Merchandise Appraiser Relationship Specialty Start Date End Date Yanet Keane PA-C [address] [place] [address] PCP - General 04/14/24 Balbir Newman MD [address] [place] [address] Radiation Oncology 04/15/24 [facility] Hermelinda Franco, RN [address] [place] [address] Oncology Nurse Navigator 04/16/24 Mariann Horne PA-C [address] [place] [address] Physician Kiln Maintenance Surgery, Cardiac 08/07/24 Aravind Abel MD [address] [place] [address] Surgery, Cardiac 08/07/24 Migel Davis MD [address] [place] [address] Primary Set Builder Cardiovascular Disease 09/29/24
--- OUTSIDE RECORDS SUMMARY | 2025-10-19 07:05 | XMS_ITS | Encounter Summary ---
Author Organization [facility] Address [address] [place] [address] Care Team Providers Care Underwater Hunter Trapper Name Role Phone Pcp, No Primary Care Provider UnavailYanet Santana PA-C Primary Care Provider [phone] Balbir Oneal MD Unavailable [facility] Hermelinda Franco RN Unavailable Mariann Horne PA-C Unavailable Aravind Abel MD Unavailable Migel Davis MD Unavailable Encounter Details Date Type Department Care Team (Late st Contact Info) Description 12/25/2023 Scanned Document [facility] [address] [place] [phone] Wili Mendoza MD [address] [place] [address] [address] [place] [address] Social History Tobacco Use Types Packs/Day Years [...] on filedocumented in this encounter Care Teams Underwater Hunter Trapper Relationship Specialty Start Date End Date Pcp, No PCP - General General Medicine 10/29/23 04/13/24 Yanet Keane PA-C [address] [place] [address] [address] [place] [address] PCP - General 04/14/24 Balbir Oneal MD [address] [place] [address] Radiation Oncology 04/15/24 [facility] Hermelinda Franco, RN [address] [place] [address] Oncology Nurse Navigator 04/16/24 Mariann Horne PA-C [address] [place] [address] Physician Entry Level Project Engineer Surgery, Cardiac 08/07/24 Aravind Abel MD [address] [place] [address] Surgery, Cardiac 08/07/24 Migel Davis MD [address] [place] [phone] Primary Director Of Health Care Marketing Cardiovascular Disease 09/29/24 documented as of this encounter
--- OUTSIDE RECORDS SUMMARY | 2025-10-19 07:06 | XMS_ITS | Encounter Summary ---
Author Organization [facility] Address [address] [place] [address] Care Team Providers Care Byproducts Operator Name Role Phone Yanet Keane PA-C Primary Care Provider [phone] Balbir Oneal MD Unavailable [phone] [facility] Hermelinda Franco RN Unavailable [phone] Mariann Horne PA-C Unavailable Aravind Abel MD Unavailable [phone] Migel Davis MD Unavailable Reason for Visit * Auth/Cert (Routine) Specialty Diagnoses / Procedures Referred By Leon t Referred To Contact Diagnoses Malignant neoplasm of base of tongue Procedures CHG NTSTY MODUL RADTHX PLN DOSE-VOL HISTOS CHG INTENSITY MODULATED RADIATION TX DLVR COMPLEX FL RADIATION TX DELIVERY IMRT CHG CT GUIDANCE RADIATION THERAPY FLDS PLACEMENT FL STEREOSCOPIC X-RAY GUIDANCE CHG SPECIAL TREATMENT PROCEDURE CHG THERAPEUTIC RADIOLOGY TX PLANNING COMPLEX CHG CONTINUING MEDICAL PHYSICS CONSLTJ FL WK CHG RADIATION TREATMENT MANAGEMENT 5 TREATMENTS CHG TX DEVICES DESIGN & CONSTRUCTION COMPLEX CHG MLC IMRT DESIGN & CONSTRUCTION PER IMRT PLAN CHG BASIC RADIATION DOSIMETRY CALCULATION APPROVAL REF #[id number] 04/21/24 - 10/18/24 Referral ID Status Reason Start Date Expiration Date Visits Re quested Visits Authorized [id number] 1 1 Encounter Details Date Type Department Care Team (Late st Contact Info) Description 04/18/2024 Hospital Encounter [facility] Radiation Oncology [address] [place] [phone] Social History Tobacco Use Types Packs/Day Years [...] LTG 1 Speech Therapy No Ela Ordonez, ARIADNE-PICKER BOX OPERATOR Note: The patient will present with a functional swallow mechanism to tolerate a least restrictive diet during radiation therapy with no concerns for aspiration in [address] STG 1 Speech Therapy No Ela Ordonez, ARIADNE-PICKER BOX OPERATOR Note: The patient will complete 10/10 oral and pharyngeal strengthening exercises independently with 100% accuracy in 3/[address] STG 2 Speech Therapy No Ela Ordonez, ARIADNE-PICKER BOX OPERATOR Note: The patient will tolerate a least restrictive diet without clinical indicators of penetration or aspiration to maintain nutrition via oral intake only. documented as of this encounter Visit Diagnoses Not on filedocumented in this encounter Care Teams Byproducts Operator Relationship Specialty Start Date End Date Yanet Keane PA-C [address] [place] [address] PCP - General 04/14/24 Balbir Oneal MD [address] [place] [address] Radiation Oncology 04/15/24 [facility] Hermelinda Franco, RN [address] [place], [place] [id number] Oncology Nurse Navigator 04/16/24 Mariann Horne PAVijayaC [address] [place] [address] Physician Milieu Therapist Surgery, Cardiac 08/07/24 Aravind Abel MD [address] [place] [address] Surgery, Cardiac 08/07/24 Migel Davis MD [address] [place] [address] Primary Industrial Recruiter Cardiovascular Disease 09/29/24 documented as of this encounter
--- OUTSIDE RECORDS SUMMARY | 2025-10-19 07:06 | XMS_ITS | Encounter Summary ---
Author Organization [facility] Address [address] [facility] [address] [place] [address] Phone Care Team Providers Care Adolescent Medicine Specialist Name Role Phone Keagan Pizarro MD Primary Care Provider [phone] Yanet Keane PA-C Primary Care Provider [phone] Reason for Referral * MRI/CAT Scan - Closed Specialty Diagnoses / Procedures Referred By Contac t Referred To Contact Radiology Diagnoses Abnormal electrocardiogram (ECG) (EKG) Procedures NC Myocardial Perfusion Exercise Multiple NC Myocardial Perfusion Pharmacologic Stress Multiple Willie Saunders MD Phone: tel: fax: [email or web address] Referral ID Status Reason Start Date Expiration Date Visits Re quested Visits Authorized [id number] Closed 09/10/2022 03/09/2023 1 1 Encounter Details Date Type Department Care Team (Latest Contact Info) Description 09/19/2022 Ancillary Orders [facility] [address] [place] [address] [address] Floor, [address] [place], [place] [id number] Willie Saunders MD [address] [facility], [address] [place] [address] [email or web address] Abnormal electrocardiogram (ECG) (EKG) Social History Tobacco Use Types Packs/Day Years [...] on file documented as of this encounter Results * NC Myocardial Perfusion Exercise Multiple (09/19/2022 1:12 PM EDT) Nuc Stress EF 49 % LV Systolic Volume 80 mL LV Diastolic Volume 154 mL EF 48 % LV Systolic Volume Index 86 mL/m2 LV Diastolic Volume Index 169 mL/m2 Anatomical Region Laterality Modality Heart, Vascular Ultrasound Narrative 09/19/2022 4:20 PM EDT Normal myocardial perfusion imaging. There is evidence of diaphragmatic attenuation artifact. There are no fixed or reversible perfusion defects. TID ratio is normal at 1.07. LVEF was 48% at rest and 49% post-stress. Nuclear Study Quality TYPE OF STUDY: Myocardial Perfusion Imaging after exercise utilizing a standard Miguel protocol with gated SPECT. PROTOCOL USED: One day rest- stress protocol in the supine and prone position. Images were obtained in gated tomographic technique. Images were processed in SPECT format, reconstructed tomographically and compared [id number] in short axis, horizontal long axis and vertical long axis. DOSE: Technetium 99m Sestamibi 7.2 mCi injected intravenously in the right antecubital vein at rest on 09/19/2022 with post injection scan time of 60 minutes. Technetium 99m Sestamibi 21.6 mCi injected intravenously in the right arm antecubital vein during stress on 09/19/2022 with post injection scan time of 20 minutes. Overall image quality is good. Diaphragmatic attenuation artifact is present. Study was gated successfully. The lung to heart ratio is 0.35 Response to Stress REPORT: Weight: 206 lb BMI: 28.04 Topher Dyer exercised for 6:47 minutes on a MIGUEL protocol achieving 7.4 METS. Test terminated due to fatigue. Baseline resting heart rate was 45 bpm. Maximum heart rate achieved was 130 bpm (83% MPHR). 1. EKG - Baseline EKG showed sinus bradycardia with a right bundle branch block, left axis deviation and first degree AV block. During exercise, EKGs were non- diagnostic for ischemia due to baseline abnormalities. 2. SYMPTOMS - No chest pain. 3. EXERCISE PHYSIOLOGY - Average functional capacity for age. BP 112/72 at rest, 164/74 during exercise, and 130/78 upon discharge from stress lab. Oxygen saturation maintained > 95% on room air during exercise. 4. ARRHYTHMIAS - Frequent ventricular ectopy. Multifocal PVCs, ventricular couplets and runs of bigeminy were noted during exercise. Conclusion - EKGs non-diagnostic for ischemia. No symptoms concerning for angina. Frequent ventricular ectopy. Nuclear images pending and will be reported separately. See attached stress report for full details. HEATHER Wang . Perfusion Comments Stress LV cavity volume was 120 mL. Resting LV cavity volume was 112 mL. The stress/rest perfusion ratio is 1.07. There is no evidence of transient ischemic dilation (TID). The TID ratio was 1.1. Stress Function Comments Left ventricular function post-stress was normal. Post-stress ejection fraction was 49%. Stress end diastolic index: 169 mL/m2. Stress end systolic index: 86 mL/m2. Nuclear Prior Study There is no prior study available for comparison. Rest Function Comments Left ventricular function at rest was normal. Resting ejection fraction was 48%. Rest end diastolic index: 154 mL. Rest end systolic index: 80 mL. Perfusion Scoring Stress Summed Score: 0 Percent Normal: 0.00% The left ventricular perfusion is normal. Prone Imaging Perfusion Scoring Resting Summed Score: 0 Percent Normal: 0.00% The left ventricular perfusion is normal. Supine Imaging Procedure Note Rene Guallpa MD - 09/19/2022 Normal myocardial perfusion imaging. There is evidence of diaphragmatic attenuation artifact. There are no fixed or reversible perfusion defects. TID ratio is normal at 1.07. LVEF was 48% at rest and 49% post-stress. us Willie Saunders MD CV NM CARDIAC Final Re sult documented in this encounter Visit Diagnoses Diagnosis Abnormal electrocardiogram (ECG) (EKG)- Primary Abnormal electrocardiogram (ECG) (EKG) documented in this encounter Care Teams Adolescent Medicine Specialist Relationship Specialty Start Date End Date Keagan Pizarro MD [address] [place] [phone] [email or web address] PCP - General Family Medicine 05/23/22 05/19/23 Yanet Keane PA-C [address] [place] [phone] [email or web address] PCP - General Physician Delivery Architect 05/20/23 documented as of this encounter Additional Source Comments The information contained in this document represents components of the legal health record. It is not the complete legal health record.[facility]
--- OUTSIDE RECORDS SUMMARY | 2025-10-19 07:06 | XMS_ITS | Clinical Summary ---
Author Organization [facility] Address [address] [facility] [address] [place] [address] Phone Care Team Providers Care Gun Club Manager Name Role Phone Yanet Keane PA-C Primary Care Provider [phone] Allergies No known active allergies Medications carisoprodol (SOMA) 350 MG tablet Take 350 mg by mouth 4 (four) times a day as needed for spasm. Active metroNIDAZOLE (ROSADAN) 0.75 % gel Apply topically 2 (two) times a day. Active ascorbic acid, vitamin C, (VITAMIN C) 500 MG tablet Take 500 mg by mouth daily. Active magnesium oxide 250 mg (150 mg elemental) Tab Take 250 mg by mouth daily. Active therapeutic multivitamin tablet Take 1 tablet by mouth daily. Active diphenhydrAMINE (BENADRYL) 25 mg tablet Take 25 mg by mouth nightly at bedtime as needed for sleep. Active meloxicam (MOBIC) 15 MG tablet Take 1 tablet by mouth every morning. 3 Active oxyCODONE 5 MG immediate release tablet Take 1 tablet (5 mg total) by mouth every 4 (four) hours as needed. Partial fill ok 12 tablet 3 Active Active Problems Problem Noted Date Diagnosed Date Primary osteoarthritis of right hip 10/15/2023 History of total knee replacement, bilateral Syncope and collapse 09/04/2022 Assessment & Plan (09/04/2022 6:01 PM EDT): Patient had a syncopal episode after heavy work all day and not eating and drinking enough. Taken to the emergency room. It was considered to be vasovagal but it did not have any work-up for that. He did not have any recurrence. If he gets any recurrence will consider using a Holter monitor to make sure there is no advanced heart block and may be a tilt table test. 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 There are Q waves in inferior leads suggesting question of old inferior wall MA His previous electrocardiogram 1 on December 31, 2019 also showed exactly sinus bradycardia with right bundle branch block pattern and left axis deviation suggesting bifascicular block and question of old inferior wall MA. His electrocardiogram has no change from the last 1. Because of his abnormal electrocardiogram we will order an echocardiogram to see his wall motion abnormality and also do a stress test. Discussed the reasons for left right bundle branch block pattern and the possible prognosis. 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 His EKG has not changed from the last one that was done in December 2019. It also shows possibility of old inferior wall MA. Immunizations Immunization Administration Dates Next Due COVID-19 (Pre-09/09) Pfizer Vaccine, mRNA, PF ,02/11/2021 Social History Tobacco Use Types Packs/Day Years [...] PM EST Sexual Orientation Not on file Last Filed Vital Signs Vital Sign Reading Time Taken Comments Blood Pressure 126/86 11/09/2023 5:53 PM EST Pulse 64 11/09/2023 1:08 PM EST Temperature 36.6 C (97.9 F) 11/09/2023 5:53 PM EST Respiratory Rate 16 11/09/2023 5:53 PM EST Oxygen Saturation 100% 11/09/2023 5:53 PM EST Inhaled Oxygen Concentration - - Weight 98 kg (216 lb) 10/15/2023 3:19 PM EST Height 180 cm (5' 10.87 ) 10/15/2023 3:19 PM EST Body Mass Index 30.24 10/15/2023 3:19 PM EST Plan of Treatment Health Maintenance Due Date Last Done Comments LIPID PANEL 1957 DEPRESSION SCREENING 1969 SMOKING Hx and SMOKELESS TOBACCO SCREENING 1970 HEPATITIS C SCREENING 1975 COLOGUARD 2002 COLONOSCOPY 2002 COLORECTAL CANCER SCREENING 2002 FIT TEST 2002 FOBT 2002 SIGMOIDOSCOPY 2002 VIRTUAL COLONOSCOPY 2002 PNEUMOCOCCAL VACCINES (50+ years) (2 of 2 - PCV) 08/02/2015 08/02/2014 INFLUENZA VACCINE (#1) 2025 , 08/10/2022, 08/31/2021, Additional history exists COVID-19 VACCINE ( season) 2025 08/19/2023, 04/16/2023, 08/10/2022, Additional history exists SCREENING FOR DIABETES 11/09/2026 11/09/2023 RSV VACCINE (1 - 1-dose 75+ series) 2032 Adult Td,Tdap Booster 01/16/2033 01/16/2023 , 01/16/2013, 02/04/2007 ZOSTER VACCINES Completed 01/14/2020, 10/18, 10/30/2013 ABDOMINAL AORTIC ANEURYSM (AAA) SCREENING Completed 11/09/2023 HEPATITIS A VACCINES Aged Out No long er eligible based on patient's age to complete this topic HIB VACCINES Aged Out No longer eligi ble based on patient's age to complete this topic MENINGOCOCCAL VACCINES (ACWY) Aged Out No longer eligible based on patient's age to complete this topic MENINGOCOCCAL VACCINES (B) Aged Out N o longer eligible based on patient's age to complete this topic Medical Devices Implanted Type Area Fishing Vessel Captain Device Identifier Shelf Expiration Date Model / Serial / Lot Prosthetic Joint Prosthetic Joint Bilatera l: Knee Mesh Synthetic 10cmx2.54 Abdominal Non Absorbable Rectangle Polypropylene Prolene Bx/6ea - [id number] Implanted:Qty: 1 on 06/04/2022 by Ghassan Gao MD at [facility] Right: Groin [facility] [employer] / DIVISION OF J 08/17/2026 PMXS / / [id number] Procedures Procedure Name Priority Date/Time Associated Diagnosis Comments CT ABDOMEN/PELVIS WITH CONTRAST Routine 11/09/2023 4:47 PM EST from Last 3 Months or Most Recently Relevant to Health Maintenance Results * CT ABDOMEN/PELVIS WITH CONTRAST (11/09/2023 4:47 PM EST) Anatomical Region Laterality Modality Abdomen, Pelvis Computed Tomogra phy 11/09/2023 5:11 PM EST Impressions 11/09/2023 5:41 PM EST 1. No clear cause identified by CT for patient's symptoms. Specifically, there is no evidence of obstructive uropathy. Punctate nonobstructive right renal calculus. 2. Hepatic steatosis. ATTESTATION: I, Shorty Soliz as teaching physician, have reviewed the images for this case and if necessary edited the report originally created by Elli Smith. Narrative 11/09/2023 5:[address] ABDOMEN/PELVIS WITH CONTRAST Referring clinician's provided indication for this examination in Epic: * Flank pain, kidney stone suspected; * Abdominal abscess/infection suspected; Broad differential, suspect a kidney stone but no blood in urine. Contrast please. TECHNIQUE: Multidetector-row CT of the abdomen and pelvis was performed after administration of intravenous contrast using tailored dose modulation techniques. Images were reconstructed in the axial, coronal, and sagittal planes. COMPARISON: None FINDINGS: Lower Chest: No consolidation or pleural effusions. Minimal dependent atelectasis. Subsegmental linear atelectasis in the right lung base. Polygonal 6 mm nodular opacity in the lingula (4:19) likely postinflammatory. Mild bronchial wall thickening. Mildly patulous lower esophagus. Normal heart size. No pericardial fluid. A few calcifications of the aortic valve. Liver: Hepatic parenchyma shows diffuse hypoattenuation representing fatty liver. Subcentimeter anterior subcapsular focal enhancement in segment 8 (3:18), may be perfusional or artifactual. No other focal lesions Biliary: Normal gallbladder. No biliary ductal dilatation. Spleen: No splenomegaly. 5 mm low-attenuation lesion at the superior pole most likely reflects a splenic cyst (4:35). Pancreas: No masses or ductal dilatation. Adrenal Glands: No nodules. Kidneys/Ureters: 1 mm nonobstructive calculus in the right renal upper calyx (6:61, 4:77). Subcentimeter left renal hypoattenuating lesions (3:31, 35, 36) are too small to characterize but may represent cysts. 1.1 cm right para patent cyst (3:38). No solid masses, stones, or hydronephrosis. Bowel: Normal appendix (3:61). Normal small bowel and colon. Peritoneum/Retroperitoneum: No masses, pneumoperitoneum, or fluid. Lymph Nodes: No lymphadenopathy. Pelvic Organs/Bladder: 1.0 x 0.8 cm hyperattenuating nodule in the left periurethral midline prostate (3:90), indeterminate may represent a BPH nodule. Normal urinary bladder. Vessels: No abdominal aortic aneurysm. Mild atherosclerotic calcification in the abdominal aorta. Bones/Soft Tissues: Mild degenerative changes and osteopenia in the spine. Lucent lesions along the lateral acetabular rim more on the right (6:56, 60), likely representing degenerative changes. Mild to moderate narrowing of left hip cartilage with severe narrowing on the right side associated with subchondral sclerosis and hypertrophic change. Procedure Note Ashish Soliz MD, MPH - 11/09/2023 CT ABDOMEN/PELVIS WITH CONTRAST Referring clinician's provided indication for this examination in Epic: *Flank pain, kidney stone suspected; * Abdominal abscess/infectionsuspected; Broad differential, suspect a kidney stone but no blood inurine. Contrast please. TECHNIQUE: Multidetector-row CT of the abdomen and pelvis was performedafter administration of intravenous contrast using tailored dosemodulation techniques. Images were reconstructed in the axial, coronal,and sagittal planes. COMPARISON: None FINDINGS: Lower Chest: No consolidation or pleural effusions. Minimal dependentatelectasis. Subsegmental linear atelectasis in the right lung base.Polygonal 6 mm nodular opacity in the lingula (4:19) likelypostinflammatory. Mild bronchial wall thickening. Mildly patulous loweresophagus. Normal heart size. No pericardial fluid. A few calcificationsof the aortic valve. Liver: Hepatic parenchyma shows diffuse hypoattenuation representing fattyliver. Subcentimeter anterior subcapsular focal enhancement in segment 8(3:18), may be perfusional or artifactual. No other focal lesions Biliary: Normal gallbladder. No biliary ductal dilatation. Spleen: No splenomegaly. 5 mm low-attenuation lesion at the superior polemost likely reflects a splenic cyst (4:35). Pancreas: No masses or ductal dilatation. Adrenal Glands: No nodules. Kidneys/Ureters: 1 mm nonobstructive calculus in the right renal uppercalyx (6:61, 4:77). Subcentimeter left renal hypoattenuating lesions(3:31, 35, 36) are too small to characterize but may represent cysts. 1.1cm right para patent cyst (3:38). No solid masses, stones, orhydronephrosis. Bowel: Normal appendix (3:61). Normal small bowel and colon. Peritoneum/Retroperitoneum: No masses, pneumoperitoneum, or fluid. Lymph Nodes: No lymphadenopathy. Pelvic Organs/Bladder: 1.0 x 0.8 cm hyperattenuating nodule in the leftperiurethral midline prostate (3:90), indeterminate may represent a BPHnodule. Normal urinary bladder. Vessels: No abdominal aortic aneurysm. Mild atherosclerotic calcificationin the abdominal aorta. Bones/Soft Tissues: Mild degenerative changes and osteopenia in the spine.Lucent lesions along the lateral acetabular rim more on the right (6:56,60), likely representing degenerative changes. Mild to moderate narrowingof left hip cartilage with severe narrowing on the right side associatedwith subchondral sclerosis and hypertrophic change. IMPRESSION: 1. No clear cause identified by CT for patient's symptoms. Specifically,there is no evidence of obstructive uropathy. Punctate nonobstructiveright renal calculus. 2. Hepatic steatosis. ATTESTATION: I, Shorty Soliz as teaching physician, have reviewed theimages for this case and if necessary edited the report originally createdby Elli Smith. Shorty Guerrero MD IMG CT ABD/PELVIS Final Res ult from Last 3 Months or Most Recently Relevant to Health Maintenance [facility] PPO MEDICARE A [facility] PPO MEDICARE A CIG PPO MEDICARE A PPO MEDICARE A CIGNA PPO MEDICARE A CIGNA PPO MEDICARE A Member Subscriber Plan / Payer ( fective 2021-Present) Name:Topher Allan Member ID:[id number] Relation to Subscriber:Self Name:Topher Allan Subscriber ID:[id number] Payer ID:[id number] Group ID:Not on file Type:Medicare Address: [employer] [address] CIGNA PPO MEDICARE A Care Teams Gun Club Manager Relationship Specialty Start Date End Date Yanet Keane PA-C [address] [place] [phone] [email or web address] PCP - General Physician Manager Electronic 05/20/23 Additional Source Comments The information contained in this document represents components of the legal health record. It is not the complete legal health record.[facility]
--- OUTSIDE RECORDS SUMMARY | 2025-10-19 07:06 | XMS_ITS | Encounter Summary ---
Author Organization [facility] Address [address] [place] [address] Care Team Providers Care Food Service Lead Name Role Phone Pcp, No Primary Care Provider UnavailYanet Santana PA-C Primary Care Provider [phone] Balbir Oneal MD Unavailable [phone] [facility] [[email or web address]] Hermelinda Franco RN Unavailable [phone] Mariann Horne PA-C Unavailable [phone] Aravind Abel MD Unavailable [phone] Migel Davis MD Unavailable Encounter Details Date Type Department Care Team (Late st Contact Info) Description 04/10/2024 Scanned Document [facility] Cardiothoracic Surgery [address] [place] [phone] Cardiology, Scan Social History Tobacco Use Types Packs/Day Years [...] more drinks on one occasion? Never 04/03/2024 Sex and Gender Information Value Date Recorded Sex Assigned at Male 04/07/2024 12:05 PM EDT Legal Sex Male 12:50 PM EST Gender Identity Male 04/07/2024 12:05 PM EDT Sexual Orientation Heterosexual (straight) 04/07 12:05 PM EDT documented as of this encounter Plan of Treatment Not on file documented as of this encounter Visit Diagnoses Not on filedocumented in this encounter Care Teams Food Service Lead Relationship Specialty Start Date End Date Pcp, No PCP - General General Medicine 10/29/23 04/13/24 Yanet Keane PA-C [address] [place] [id number] PCP - General 04/14/24 Balbir Oneal MD [address] [place] [address] Radiation Oncology 04/15/24 [facility] [[email or web address]] Hermelinda Franco, RN [address] [place] [address] Oncology Nurse Navigator 04/16/24 Mariann Horne PA-C [address] [place] [phone] Physician Truck Cleaner Surgery, Cardiac 08/07/24 Aravind Abel MD [address] [place] [address] Surgery, Cardiac 08/07/24 Migel Davis MD [address] [place] [address] Primary Drafter Patent Cardiovascular Disease 09/29/24 documented as of this encounter
[2025-10-19 07:25] VITALS: BP 144/72; PULSE 50; RESP 16; TEMP 36.6; O2SAT 98
== END 2025-10-19 07:25 | disposition home or self-care (01) ==
PROVIDERS: Emergency Provider Emergency Medicine; PCP Nurse Practitioner Primary Care
DX: M70.31 Other bursitis of elbow, right elbow (principal); Y93.9 Activity, unspecified; R60.0 Localized edema; M25.521 Pain in right elbow
CPT/HCPCS: 36415; 73080; 80053; 82550; 85025; 85652; 96372; 99283; 99284; J1885; J2919

== ENCOUNTER → 2025-10-18 22:24 | Outpatient (BNV) | payer OTHER, SELFPAY | PROVIDERS: Visit Provider Student in an Organized Health Care Education/Training Program | DX: M79.89 Other specified soft tissue disorders (principal) | CPT/HCPCS: 73080 ==